=== PATIENT | male | born 1965 | race Caucasian/White ===

== ENCOUNTER 2017-04-21 21:18 | Emergency (ER) | payer OTHER ==
[2017-04-21] MEDS ORDERED: CEPHALEXIN 500 MG CAP PO STA (21:50)
[2017-04-21] MEDS ORDERED: LORazepam 1 MG TAB PO STA (21:51)
--- NOTE | 2017-04-21 22:52 | ED ---
General Adult HPI - General Source: patient Mode of arrival: wheelchair Limitations: no limitations <Jose South - Last Filed: 04/22/17 00:56> <Wilton Pop - Last Filed: 04/22/17 03:33> <Elyssa Bonilla - Last Filed: 04/22/17 05:01> - General Chief complaint: Alcohol Stated complaint: Poss Spider Bite Time Seen by Provider: 04/21/17 21:38 - History of Present Illness Initial comments: Patient presents on foot to the emergency department for the chief complaint possible spider bite on his right medial ankle. Patient states he does not know how long it has been there. States that he got it [place] On initial presentation, patient is obviously intoxicated. He states that he drinks every day. He does not know how much he drank today. Patient has no other complaints at this time. (Jose South) - Related Data Previous Rx's Medication Instructions Recorded Cephalexin [Keflex] 500 mg PO Q8HR #21 cap 04/22/17 Allergies Allergy/AdvReac Type Severity Reaction Status Date / Time No Known Allergies Allergy Verified 05/10/16 16:56 Review of Systems ROS Other: All systems not noted in ROS Statement are negative. Constitutional: Denies: fever, chills Eyes: Denies: vision change ENT: Denies: ear pain, throat pain Respiratory: Denies: dyspnea Cardiovascular: Denies: chest pain Endocrine: Denies: fatigue Gastrointestinal: Denies: abdominal pain, nausea, vomiting Genitourinary: Denies: dysuria Musculoskeletal: Denies: back pain Skin: Reports: lesions Neurological: Denies: headache <Jose South - Last Filed: 04/22/17 00:56> ROS Other: All systems not noted in ROS Statement are negative. <Wilton Pop - Last Filed: 04/22/17 03:33> ROS Other: All systems not noted in ROS Statement are negative. <Elyssa Bonilla - Last Filed: 04/22/17 05:01> ROS Statement: Those systems with pertinent positive or pertinent negative responses have been documented in the HPI. Past Medical History Past Medical History: No Reported History Additional Past Medical History / Comment(s): etoh History of Any Multi-Drug Resistant Organisms: None Reported Past Surgical History: Hernia Repair Past Psychological History: No Psychological Hx Reported Smoking Status: Current every day smoker Past Alcohol Use History: Abuse, Daily, Heavy Past Drug Use History: None Reported <Jose South - Last Filed: 04/22/17 00:56> General Exam Limitations: no limitations General appearance: alert, in no apparent distress, appears intoxicated Head exam: Present: atraumatic, normocephalic Eye exam: Present: normal appearance, PERRL ENT exam: Present: normal exam Neck exam: Present: normal inspection Respiratory exam: Present: normal lung sounds bilaterally Cardiovascular Exam: Present: regular rate, normal rhythm, normal heart sounds GI/Abdominal exam: Present: soft. Absent: distended, tenderness Rectal exam: Present: deferred Extremities exam: Present: normal inspection Back exam: Present: normal inspection Neurological exam: Present: alert, CN II-XII intact, normal gait Psychiatric exam: Present: normal affect, normal mood Skin exam: Present: warm, dry, intact, vesicles (Patient has 3 small vesicles on his right medial ankle. There is minimal surrounding erythema. Lesions are not painful to touch. There is no drainage noted. Lesions appear to be isolated infections. ) <Jose South - Last Filed: 04/22/17 00:56> Course <Jose South - Last Filed: 04/22/17 00:56> <Wilton Pop - Last Filed: 04/22/17 03:33> <Elyssa Bonilla - Last Filed: 04/22/17 05:01> Vital Signs 04/21/17 04/22/17 04/22/17 21:30 01:27 04:00 Temperature 97.5 F L Pulse Rate 103 H 68 Respiratory 18 16 16 Rate Blood Pressure 149/95 157/77 O2 Sat by Pulse 96 97 Oximetry - Reevaluation(s) Reevaluation #1: 04/22/17 03:33 Case discussed and signed out to (Wilton Pop) Medical Decision Making <Jose South - Last Filed: 04/22/17 00:56> <Wilton Pop - Last Filed: 04/22/17 03:33> <Elyssa Bonilla - Last Filed: 04/22/17 05:01> - Medical Decision Making Patient presents with a chief complaint of a possible spider bite/lesions on his right ankle. Examination shows possible insect bite versus contact dermatitis. There is not significant surrounding erythema. They're not tender to touch. There is no drainage noted. Patient was given a dose of Keflex in the emergency department. On arrival, patient is visibly intoxicated. He admits to drinking every day. Patient is slurring his words, however he has no focal neurological deficits. Patient will be kept in the emergency department until he is clinically sober. When patient is sober, he'll be discharged with prescription for Keflex and primary care follow-up. 12:57 AM Patient currently sleeping. He'll be reassessed for sobriety when he wakes up. This case will be signed out to Wilton Pop. (Jose South) Disposition <Jose South - Last Filed: 04/22/17 00:56> <Wilton Pop - Last Filed: 04/22/17 03:33> <Elyssa Bonilla - Last Filed: 04/22/17 05:01> Clinical Impression: Spider bite Disposition: HOME SELF-CARE Condition: Good Instructions: Insect Bite or Sting (ED) Additional Instructions: He does not have any family doctor he was advised to come back to the ER for follow-up if it gets worse Prescriptions: Cephalexin [Keflex] 500 mg PO Q8HR #21 cap Referrals: None,Stated [Primary Care Provider] - 1-2 days
[2017-04-22 01:28] VITALS: RESP 16
[2017-04-22 05:06] VITALS: BP 147/72; PULSE 76; TEMP 97.3
== END 2017-04-22 05:06 | disposition home or self-care (01) ==
LOC: EC 21:18
DX: S90.561A Insect bite (nonvenomous), right ankle, initial encounter (principal); F10.129 Alcohol abuse with intoxication, unspecified; W57.XXXA Bitten or stung by nonvenomous insect and other nonvenomous arthropods, initial encounter; F17.200 Nicotine dependence, unspecified, uncomplicated
CPT/HCPCS: 99283

== ENCOUNTER 2017-10-16 22:17 | Emergency (ER) | payer SELFPAY ==
[2017-10-16] MEDS ORDERED: LORazepam 2 MG/ML INJ IM STA ×2 (22:45→23:24)
[2017-10-16 22:49] VITALS: TEMP 98
--- NOTE | 2017-10-16 22:58 | ED ---
Alcohol HPI - General Source: EMS Mode of arrival: EMS Limitations: no limitations - History of Present Illness MD Complaint: alcohol intoxication Last Drink: unknown Previous Visits for Alcohol Intoxication?: Yes Recent Trauma: No Associated Symptoms: denies other symptoms Chronic Alcohol Use: Yes <Dawood Price - Last Filed: 10/17/17 07:03> <Emory Andrew - Last Filed: 10/17/17 08:11> - General Chief Complaint: Alcohol Stated Complaint: ETOH Time Seen by Provider: 10/16/17 22:19 - History of Present Illness Initial Comments: This patient is a 51-year-old man brought by ambulance after they were called about a man found outside who was too intoxicated to walk. Patient reportedly was [place]. The patient does admit to drinking "a lot." He denies any injury when he fell. He denies loss consciousness. He denies head or neck pain, chest, back, or abdominal pain. (Dawood Price) - Related Data Home Medications Medication Instructions Recorded Confirmed No Known Home Medications [No 10/16/17 10/16/17 Known Home Medications] Allergies Allergy/AdvReac Type Severity Reaction Status Date / Time No Known Allergies Allergy Verified 10/16/17 22:49 Review of Systems ROS Other: All systems not noted in ROS Statement are negative. Cardiovascular: Denies: chest pain Gastrointestinal: Denies: abdominal pain, vomiting Musculoskeletal: Denies: back pain Neurological: Denies: headache <Dawood Price - Last Filed: 10/17/17 07:03> ROS Other: All systems not noted in ROS Statement are negative. <Emory Andrew - Last Filed: 10/17/17 08:11> ROS Statement: Those systems with pertinent positive or pertinent negative responses have been documented in the HPI. Past Medical History Past Medical History: No Reported History Additional Past Medical History / Comment(s): etoh History of Any Multi-Drug Resistant Organisms: None Reported Past Surgical History: Hernia Repair Past Psychological History: No Psychological Hx Reported Smoking Status: Current every day smoker Past Alcohol Use History: Abuse, Daily, Heavy Past Drug Use History: None Reported <Dawood Price - Last Filed: 10/17/17 07:03> General Exam Limitations: no limitations General appearance: alert, appears intoxicated Head exam: Present: atraumatic, normocephalic, normal inspection Eye exam: Present: normal appearance, PERRL, EOMI, nystagmus. Absent: scleral icterus, conjunctival injection ENT exam: Present: mucous membranes dry Neck exam: Present: normal inspection, full ROM. Absent: tenderness, meningismus Respiratory exam: Present: normal lung sounds bilaterally. Absent: respiratory distress, wheezes, rales, rhonchi, stridor, chest wall tenderness Cardiovascular Exam: Present: regular rate, normal rhythm, normal heart sounds. Absent: systolic murmur, diastolic murmur, rubs, gallop GI/Abdominal exam: Present: soft. Absent: distended, tenderness, guarding, rebound Extremities exam: Present: normal inspection, full ROM Back exam: Absent: vertebral tenderness Neurological exam: Present: alert Psychiatric exam: Present: agitated Skin exam: Present: warm, dry, intact, normal color. Absent: rash <Dawood Price - Last Filed: 10/17/17 07:03> General appearance: alert, in no apparent distress Head exam: Present: atraumatic, normocephalic, normal inspection Eye exam: Present: normal appearance, PERRL, EOMI. Absent: scleral icterus, conjunctival injection, periorbital swelling ENT exam: Present: normal exam, mucous membranes moist Neck exam: Present: normal inspection. Absent: tenderness, meningismus, lymphadenopathy Respiratory exam: Present: normal lung sounds bilaterally. Absent: respiratory distress, wheezes, rales, rhonchi, stridor Cardiovascular Exam: Present: regular rate, normal rhythm, normal heart sounds. Absent: systolic murmur, diastolic murmur, rubs, gallop, clicks GI/Abdominal exam: Present: soft, normal bowel sounds. Absent: distended, tenderness, guarding, rebound, rigid Extremities exam: Present: normal inspection, full ROM, normal capillary refill. Absent: tenderness, pedal edema, joint swelling, calf tenderness Back exam: Present: normal inspection Neurological exam: Present: alert, oriented X3, CN II-XII intact Psychiatric exam: Present: normal affect, normal mood Skin exam: Present: warm, dry, intact, normal color. Absent: rash <Emory Andrew - Last Filed: 10/17/17 08:11> Course <Dawood Price - Last Filed: 10/17/17 07:03> <Emoyr Andrew - Last Filed: 10/17/17 08:11> Vital Signs 10/16/17 10/17/17 22:44 05:13 Temperature 98.0 F Pulse Rate 97 94 Respiratory 22 16 Rate Blood Pressure 198/112 143/87 O2 Sat by Pulse 98 99 Oximetry - Reevaluation(s) Reevaluation #1: 10/17/17 08:11 At this point patient is awake and alert, able to actively without difficulty ( Emory Andrew) Procedures - Restraint - Face to Face Restraint Occurrence 1 Patient's Immediate Situation: Endangers self safety, Endangers staff safety, Violent behavior Patient's Reaction to the Intervention: Angry, Belligerent, Combative Patient's Medical & Behavioral Condition: Agitated Need to Continue or Terminate Restraint or Seclusion: Continue Face to Face Eval of Restraint Date: 10/16/17 Face to Face Eval of Restraint Time: 22:30 <Dawood Price - Last Filed: 10/17/17 07:03> Medical Decision Making <Dawood Price - Last Filed: 10/17/17 07:03> <Emory Andrew - Last Filed: 10/17/17 08:11> - Medical Decision Making 51 male the ER for evaluation, alcohol intoxication, patient currently sober, without difficulty. Patient can be discharged (Emory Andrew) Disposition <Dawood Price - Last Filed: 10/17/17 07:03> <Emory Andrew - Last Filed: 10/17/17 08:11> Clinical Impression: Alcoholic intoxication Disposition: HOME SELF-CARE Condition: Good Instructions: Alcohol Intoxication (ED) Referrals: None,Stated [Primary Care Provider] - 1-2 days
[2017-10-17 05:15] VITALS: RESP 16
[2017-10-17 08:12] VITALS: PULSE 70
[2017-10-17 11:28] VITALS: BP 145/83
== END 2017-10-17 11:26 | disposition home or self-care (01) ==
LOC: EC 22:17
DX: F10.129 Alcohol abuse with intoxication, unspecified (principal); R45.1 Restlessness and agitation; H55.09 Other forms of nystagmus; F17.200 Nicotine dependence, unspecified, uncomplicated
CPT/HCPCS: 99284; 96372 ×2; J2060

== ENCOUNTER 2017-10-19 22:28 | Emergency (ER) | payer OTHER ==
[2017-10-19 22:46] VITALS: RESP 18
--- NOTE | 2017-10-19 23:23 | XR ---
EXAMINATION TYPE: XR chest 2V DATE OF EXAM: 10/19/2017 COMPARISON: NONE HISTORY: Chest pain TECHNIQUE: Frontal and lateral views of the chest are obtained. FINDINGS: Heart and mediastinum are normal. Lungs are clear of consolidation. There is slight coarse jeaneth of interstitial markings. There is no pleural effusion. Bony thorax is intact. IMPRESSION: Slight increase lung markings could relate to mild fibrosis. Normal heart. There is no h eart failure.
[2017-10-19 23:37] LABS: Basophils # (A) 0.1 k/uL (0-0.2); Basophils % (A) 1 %; Eosinophils # (A) 0.7 k/uL (0-0.7); Eosinophils % (A) 6 %; HCT 52.6 % (39.0-53.0); HGB 17.1 gm/dL (13.0-17.5); Lymphocytes # (A) 2.2 k/uL (1.0-4.8); Lymphocytes % (A) 20 %; MCH 31.8 pg (25.0-35.0); MCHC 32.4 g/dL (31.0-37.0); MCV 98.1 fL (80.0-100.0); Mean Platelet Volume 7.1; Monocytes # (A) 0.6 k/uL (0-1.0); Monocytes % (A) 6 %; Neutrophils # (A) 7.1 k/uL (1.3-7.7); Neutrophils % (A) 66 %; Platelet Count 245 k/uL (150-450); RBC 5.36 m/uL (4.30-5.90); RDW 13.4 % (11.5-15.5); WBC 10.8 k/uL (3.8-10.6)
[2017-10-19 23:47] LABS: Anion Gap 16 mmol/L; Blood Urea Nitrogen 8 mg/dL (9-20); Calcium 9.7 mg/dL (8.4-10.2); Carbon Dioxide 22 mmol/L (22-30); Chloride 103 mmol/L (98-107); Glucose 151 mg/dL (74-99); Potassium 4.6 mmol/L (3.5-5.1); Sodium 141 mmol/L (137-145)
--- NOTE | 2017-10-20 00:06 | ED ---
Anxiety HPI - General Chief Complaint: Anxiety Stated Complaint: Anxiety Time Seen by Provider: 10/19/17 22:53 Source: patient Mode of arrival: ambulatory - History of Present Illness Initial Comments: Patient is a 51-year-old man who presents because she is anxious about his situation. He is currently homeless. Patient does admit drinking tonight. He denies any homicidal or suicidal ideation or any hallucinations. MD Complaint: anxiety -: days(s) Place: outdoors Previous History of Same: Yes Severity: moderate Quality: intermittent Improves With: nothing Worsens With: thinking about event - Related Data Home Medications: Home Medications Medication Instructions Recorded Confirmed No Known Home Medications [No 10/16/17 10/19/17 Known Home Medications] Allergies/Adverse Reactions: Allergies Allergy/AdvReac Type Severity Reaction Status Date / Time No Known Allergies Allergy Verified 10/19/17 23:05 Review of Systems ROS Statement: Those systems with pertinent positive or pertinent negative responses have been documented in the HPI. ROS Other: All systems not noted in ROS Statement are negative. Constitutional: Denies: fever, weakness Eyes: Denies: vision change Respiratory: Denies: cough, dyspnea Cardiovascular: Denies: chest pain, palpitations, syncope Gastrointestinal: Denies: abdominal pain, vomiting, diarrhea Musculoskeletal: Denies: back pain Skin: Denies: rash Neurological: Denies: headache Psychiatric: Reports: anxiety. Denies: auditory hallucinations, visual hallucinations, homicidal thoughts, suicidal thoughts Past Medical History Past Medical History: No Reported History Additional Past Medical History / Comment(s): etoh History of Any Multi-Drug Resistant Organisms: None Reported Past Surgical History: Hernia Repair Past Psychological History: No Psychological Hx Reported Smoking Status: Current every day smoker Past Alcohol Use History: Abuse, Daily, Heavy Past Drug Use History: None Reported General Exam Limitations: no limitations General appearance: alert, appears intoxicated Head exam: Present: atraumatic, normocephalic Eye exam: Present: normal appearance. Absent: scleral icterus, conjunctival injection Respiratory exam: Present: normal lung sounds bilaterally. Absent: respiratory distress, wheezes, rales, rhonchi, stridor Cardiovascular Exam: Present: regular rate, normal rhythm, normal heart sounds GI/Abdominal exam: Present: soft. Absent: distended, tenderness, guarding, rebound Extremities exam: Present: normal inspection, normal capillary refill. Absent: pedal edema, calf tenderness Psychiatric exam: Present: normal affect. Absent: depressed, agitated, manic, homicidal ideation, suicidal ideation Skin exam: Present: warm, dry, intact, normal color. Absent: rash Course Vital Signs 10/19/17 10/20/17 22:44 00:20 Temperature 97.8 F 97.3 F L Pulse Rate 78 73 Respiratory 18 18 Rate Blood Pressure 170/100 160/88 O2 Sat by Pulse 97 98 Oximetry Medical Decision Making - Lab Data Result diagrams: 10/19/17 23:28 10/19/17 23:28 Lab Results 10/19/17 10/19/17 Range/Units 23:28 23:28 WBC 10.8 H (3.8-10.6) k/uL RBC 5.36 (4.30-5.90) m/uL Hgb 17.1 (13.0-17.5) gm/dL Hct 52.6 (39.0-53.0) % MCV 98.1 (80.0-100.0) fL MCH 31.8 (25.0-35.0) pg MCHC 32.4 (31.0-37.0) g/dL RDW 13.4 (11.5-15.5) % Plt Count 245 (150-450) k/uL Neutrophils % 66 % Lymphocytes % 20 % Monocytes % 6 % Eosinophils % 6 % Basophils % 1 % Neutrophils # 7.1 (1.3-7.7) k/uL Lymphocytes # 2.2 (1.0-4.8) k/uL Monocytes # 0.6 (0-1.0) k/uL Eosinophils # 0.7 (0-0.7) k/uL Basophils # 0.1 (0-0.2) k/uL Sodium 141 (137-145) mmol/L Potassium 4.6 (3.5-5.1) mmol/L Chloride 103 (98-107) mmol/L Carbon Dioxide 22 (22-30) mmol/L Anion Gap 16 mmol/L BUN 8 L (9-20) mg/dL Creatinine 0.60 L (0.66-1.25) mg/dL Est GFR (MDRD) Af Amer >60 (>60 ml/min/1.73 sqM) Est GFR (MDRD) Non-Af >60 (>60 ml/min/1.73 sqM) Glucose 151 H (74-99) mg/dL Calcium 9.7 (8.4-10.2) mg/dL Disposition Clinical Impression: Alcoholic intoxication Disposition: HOME SELF-CARE Condition: Fair Instructions: Alcohol Intoxication (ED) Referrals: None,Stated [Primary Care Provider] - 1-2 days
[2017-10-20 00:21] VITALS: BP 160/88; PULSE 73; TEMP 97.3
--- NOTE | 2017-10-22 03:07 | CDI ---
Documentation Clarification OP Dear Dawood BYNUM MD Please do addendum to ED report for HPI , Physical exam and MDM. Thank you, Desire [place] [employer] If you have any question, Please contact optical laboratory manager at [phone] [facility]
== END 2017-10-20 00:21 | disposition home or self-care (01) ==
LOC: EC 22:28
DX: F10.129 Alcohol abuse with intoxication, unspecified (principal); F41.9 Anxiety disorder, unspecified; F17.200 Nicotine dependence, unspecified, uncomplicated
CPT/HCPCS: 36415; 71046; 80048; 85025; 99283

== ENCOUNTER 2020-01-02 11:22 | Emergency (ER) | payer OTHER ==
[2020-01-02 11:25] VITALS: RESP 16; TEMP 98.1
--- NOTE | 2020-01-02 11:30 | ED ---
General Adult HPI - General Chief complaint: Abdominal Pain Stated complaint: Cough Time Seen by Provider: 01/02/20 11:27 Source: patient, RN notes reviewed Mode of arrival: ambulatory Limitations: no limitations - History of Present Illness Initial comments: 54-year-old male with a past medical history: He is presents to the emergency Department today for a chief complaint of nausea. Patient states he has had nausea for a little over a week now. He has not had any significant vomiting. He has not had any abdominal pain. He is passing gas without difficulty. States bowel movements have been less frequent. Patient also complaining of a cough for the past few days. He does not have any fevers. Concerned he could have coronavirus.Patient has no other complaints at this time including shortness of breath, chest pain, abdominal pain, nausea or vomiting, headache, or visual changes. - Related Data Previous Rx's Medication Instructions Recorded Azithromycin [Zithromax Z-pack] 250 mg PO DIRECTED #6 tab 01/02/20 Allergies Allergy/AdvReac Type Severity Reaction Status Date / Time No Known Allergies Allergy Verified 01/02/20 11:24 Review of Systems ROS Statement: Those systems with pertinent positive or pertinent negative responses have been documented in the HPI. ROS Other: All systems not noted in ROS Statement are negative. Past Medical History Past Medical History: No Reported History Additional Past Medical History / Comment(s): etoh History of Any Multi-Drug Resistant Organisms: None Reported Past Surgical History: Hernia Repair Past Psychological History: No Psychological Hx Reported Smoking Status: Current every day smoker Past Alcohol Use History: Abuse, Daily, Heavy Past Drug Use History: None Reported General Exam Limitations: no limitations General appearance: alert, in no apparent distress Head exam: Present: atraumatic, normocephalic, normal inspection Eye exam: Present: normal appearance, PERRL, EOMI. Absent: scleral icterus, conjunctival injection, periorbital swelling ENT exam: Present: normal exam, mucous membranes moist Neck exam: Present: normal inspection, full ROM. Absent: tenderness, meningismus, lymphadenopathy Respiratory exam: Present: normal lung sounds bilaterally. Absent: respiratory distress, wheezes, rales, rhonchi, stridor Cardiovascular Exam: Present: regular rate, normal rhythm, normal heart sounds. Absent: systolic murmur, diastolic murmur, rubs, gallop, clicks GI/Abdominal exam: Present: soft, normal bowel sounds. Absent: distended, tenderness, guarding, rebound, rigid Neurological exam: Present: alert Course Vital Signs 01/02/20 01/02/20 11:23 13:21 Temperature 98.1 F Pulse Rate 20 L 93 Respiratory 16 16 Rate Blood Pressure 169/89 164/102 O2 Sat by Pulse 99 96 Oximetry EKG Findings - EKG Comments: EKG Findings:: Sinus tachycardia, ventricular rate 104, NJ interval 124, QTc 460 Medical Decision Making - Medical Decision Making Patient presents to the emergency department stable condition. Initial pulse rate was entered as 20 which was not accurate. Repeat shows 93. Bowel sounds are normal. Abdomen nontender. Lung sounds clear. No respiratory distress. 99% on room air. CBC CMP is unremarkable. Urinalysis does show 12 white blood cells, this will be cultured. He does not have any urinary symptoms. Carotid arteries is negative however chest x-ray did show a new diffuse interstitial prominence that could relate to fluid overload or atypical pneumonia. BNP was added which is only 22. Given coffee likely has atypical pneumonia. I also discussed the possibility of a false-negative coronavirus study and that he needs to monitor himself carefully and return for any shortness of breath or worsening symptoms. He was started on azithromycin for this. X-ray KUB was also performed which showed rectal fecal stasis with a rectal fecal ball dilating the rectum up to 7.2 cm. The proximal bowel is nondilated. There is no proximal obstruction suspected. Patient was given glycerin suppository to use at home as well as magnesium citrate. Discussed increasing fiber diet. Discussed returning here for any worsening symptoms. - Lab Data Result diagrams: 01/02/20 11:46 01/02/20 11:46 Lab Results 01/02/20 01/02/20 01/02/20 Range/Units 11:46 11:46 11:46 WBC 12.3 H (3.8-10.6) k/uL RBC 5.50 (4.30-5.90) m/uL Hgb 17.4 (13.0-17.5) gm/dL Hct 53.9 H (39.0-53.0) % MCV 97.9 (80.0-100.0) fL MCH 31.6 (25.0-35.0) pg MCHC 32.3 (31.0-37.0) g/dL RDW 13.3 (11.5-15.5) % Plt Count 216 (150-450) k/uL Neutrophils % 86 % Lymphocytes % 5 % Monocytes % 5 % Eosinophils % 1 % Basophils % 1 % Neutrophils # 10.6 H (1.3-7.7) k/uL Lymphocytes # 0.6 L (1.0-4.8) k/uL Monocytes # 0.6 (0-1.0) k/uL Eosinophils # 0.1 (0-0.7) k/uL Basophils # 0.1 (0-0.2) k/uL Sodium 136 L (137-145) mmol/L Potassium 4.4 (3.5-5.1) mmol/L Chloride 103 (98-107) mmol/L Carbon Dioxide 25 (22-30) mmol/L Anion Gap 8 mmol/L BUN 7 L (9-20) mg/dL Creatinine 0.61 L (0.66-1.25) mg/dL Est GFR (CKD-EPI)AfAm >90 (>60 ml/min/1.73 sqM) Est GFR (CKD-EPI)NonAf >90 (>60 ml/min/1.73 sqM) Glucose 135 H (74-99) mg/dL Calcium 9.7 (8.4-10.2) mg/dL Total Bilirubin 0.8 (0.2-1.3) mg/dL AST 38 (17-59) U/L ALT 29 (4-49) U/L Alkaline Phosphatase 154 H (38-126) U/L NT-Pro-B Natriuret Pep pg/mL Total Protein 7.6 (6.3-8.2) g/dL Albumin 4.3 (3.5-5.0) g/dL Amylase 53 (30-110) U/L Lipase 80 (23-300) U/L Urine Color Yellow Urine Appearance Clear (Clear) Urine pH 5.5 (5.0-8.0) Ur Specific [place] 1.023 (1.001-1.035) Urine Protein 1+ H (Negative) Urine Glucose (UA) 1+ H (Negative) Urine Ketones Trace H (Negative) Urine Blood Negative (Negative) Urine Nitrite Negative (Negative) Urine Bilirubin Negative (Negative) Urine Urobilinogen 2.0 (<2.0) mg/dL Ur Leukocyte Esterase Small H (Negative) Urine WBC 12 H (0-5) /hpf Urine Bacteria Occasional H (None) /hpf Urine Mucus Many H (None) /hpf Coronavirus (PCR) (Not Detectd) 01/02/20 01/02/20 Range/Units 11:46 11:46 WBC (3.8-10.6) k/uL RBC (4.30-5.90) m/uL Hgb (13.0-17.5) gm/dL Hct (39.0-53.0) % MCV (80.0-100.0) fL MCH (25.0-35.0) pg MCHC (31.0-37.0) g/dL RDW (11.5-15.5) % Plt Count (150-450) k/uL Neutrophils % % Lymphocytes % % Monocytes % % Eosinophils % % Basophils % % Neutrophils # (1.3-7.7) k/uL Lymphocytes # (1.0-4.8) k/uL Monocytes # (0-1.0) k/uL Eosinophils # (0-0.7) k/uL Basophils # (0-0.2) k/uL Sodium (137-145) mmol/L Potassium (3.5-5.1) mmol/L Chloride (98-107) mmol/L Carbon Dioxide (22-30) mmol/L Anion Gap mmol/L BUN (9-20) mg/dL Creatinine (0.66-1.25) mg/dL Est GFR (CKD-EPI)AfAm (>60 ml/min/1.73 sqM) Est GFR (CKD-EPI)NonAf (>60 ml/min/1.73 sqM) Glucose (74-99) mg/dL Calcium (8.4-10.2) mg/dL Total Bilirubin (0.2-1.3) mg/dL AST (17-59) U/L ALT (4-49) U/L Alkaline Phosphatase (38-126) U/L NT-Pro-B Natriuret Pep 22 pg/mL Total Protein (6.3-8.2) g/dL Albumin (3.5-5.0) g/dL Amylase (30-110) U/L Lipase (23-300) U/L Urine Color Urine Appearance (Clear) Urine pH (5.0-8.0) Ur Specific [place] (1.001-1.035) Urine Protein (Negative) Urine Glucose (UA) (Negative) Urine Ketones (Negative) Urine Blood (Negative) Urine Nitrite (Negative) Urine Bilirubin (Negative) Urine Urobilinogen (<2.0) mg/dL Ur Leukocyte Esterase (Negative) Urine WBC (0-5) /hpf Urine Bacteria (None) /hpf Urine Mucus (None) /hpf Coronavirus (PCR) Not Detected (Not Detectd) Disposition Clinical Impression: Constipation, Atypical pneumonia Disposition: HOME SELF-CARE Condition: Fair Instructions (If sedation given, give patient instructions): Pneumonia (ED), High Fiber Diet (ED) Additional Instructions: Please take antibiotic as directed. Increase fiber diet. Use suppository and take magnesium citrate at home. Follow-up with primary care in 1-2 days. If you have any worsening symptoms such as shortness of breath return to the emergency department for further evaluation. Prescriptions: Azithromycin [Zithromax Z-pack] 250 mg PO DIRECTED #6 tab Is patient prescribed a controlled substance at d/c from ED?: No Referrals: Guevara Sargent MD [REFERRING] - 1-2 days Time of Disposition: 13:46
[2020-01-02] MEDS ORDERED: ONDANSETRON 4 MG/2 ML VIAL IVP STA (11:43)
[2020-01-02] MEDS ORDERED: SODIUM CHLORIDE 0.9% 1,000 ML IV STA (11:43)
[2020-01-02 12:09] LABS: Basophils # (A) 0.1 k/uL (0-0.2); Basophils % (A) 1 %; Eosinophils # (A) 0.1 k/uL (0-0.7); Eosinophils % (A) 1 %; HCT 53.9 % (39.0-53.0); HGB 17.4 gm/dL (13.0-17.5); Lymphocytes # (A) 0.6 k/uL (1.0-4.8); Lymphocytes % (A) 5 %; MCH 31.6 pg (25.0-35.0); MCHC 32.3 g/dL (31.0-37.0); MCV 97.9 fL (80.0-100.0); Mean Platelet Volume 7.3; Monocytes # (A) 0.6 k/uL (0-1.0); Monocytes % (A) 5 %; Neutrophils # (A) 10.6 k/uL (1.3-7.7); Neutrophils % (A) 86 %; Platelet Count 216 k/uL (150-450); RDW 13.3 % (11.5-15.5); WBC 12.3 k/uL (3.8-10.6)
[2020-01-02 12:20] LABS: Appearance,Urine Clear (Clear); Bacteria,Urine Occasional /hpf; Bilirubin,Urine Negative (Negative); Blood,Urine Negative (Negative); Color,Urine Yellow; Glucose,Urine (UA) 1+ (Negative); Ketones,Urine Trace (Negative); Leukocyte Esterase,Urine Small (Negative); Mucus,Urine Many /hpf; Nitrite,Urine Negative (Negative); PH, Urine 5.5 (5.0-8.0); Protein,Urine 1+ (Negative); Specific Gravity,Urine 1.023 (1.001-1.035); WBC,Urine 12 /hpf (0-5)
--- NOTE | 2020-01-02 12:25 | XR ---
EXAMINATION TYPE: XR chest 1V portable DATE OF EXAM: 01/02/2020 COMPARISON: 10/19/2017 HISTORY: Abdominal pain, cough, and vomiting TECHNIQUE: Single frontal view of the chest is obtained. FINDINGS: Diffuse interstitial prominence new from the prior. No focal consolidation, pleural effusi on or pneumothorax. Upper limits of normal size Cardia mediastinal silhouette. IMPRESSION: New diffuse interstitial prominence. Consider fluid overload or atypical pneumonia.
[2020-01-02 12:28] LABS: ALT 29 U/L (4-49); AST 38 U/L (17-59); African American GFR (CKD) >90 (>60 ml/min/1.73 sqM); Albumin 4.3 g/dL (3.5-5.0); Alkaline Phosphatase 154 U/L (38-126); Amylase 53 U/L (30-110); Anion Gap 8 mmol/L; Blood Urea Nitrogen 7 mg/dL (9-20); Calcium 9.7 mg/dL (8.4-10.2); Carbon Dioxide 25 mmol/L (22-30); Chloride 103 mmol/L (98-107); Glucose 135 mg/dL (74-99); Non-African American GFR(CKD) >90 (>60 ml/min/1.73 sqM); Potassium 4.4 mmol/L (3.5-5.1); Sodium 136 mmol/L (137-145); Total Bilirubin 0.8 mg/dL (0.2-1.3); Total Protein 7.6 g/dL (6.3-8.2)
--- NOTE | 2020-01-02 12:29 | XR ---
EXAMINATION TYPE: XR KUB DATE OF EXAM: 01/02/2020 12:15 PM CLINICAL HISTORY: Abdominal pain with cough and nausea and vomiting for 2 days TECHNIQUE: Single supine KUB image of the abdomen is obtained. COMPARISON: None. FINDINGS: Dilated rectum with rectal fecal ball measuring up to 7.2 cm. No proximal dilated large or small bowel. Supine imaging limits evaluation for pneumoperitoneum. Lung bases are well aerated. No a cute osseous pathology seen. Phleboliths within the left hemipelvis. IMPRESSION: Rectal fecal stasis with a rectal fecal ball dilating the rectum up to 7.2 cm. Proximal b owel is nondilated and no proximal obstruction suspected.
[2020-01-02] MEDS ORDERED: MAGNESIUM CITRATE 296 ML BOTTLE PO ONE (13:41)
[2020-01-02] MEDS ORDERED: GLYCERIN ADULT SUPPOSITORY 1 EACH RECTAL STA (13:41)
[2020-01-02] MEDS ORDERED: AZITHROMYCIN 500 MG TAB PO STA (13:41)
[2020-01-02 14:32] VITALS: BP 160/99; PULSE 101
== END 2020-01-02 14:35 | disposition home or self-care (01) ==
LOC: EC 11:22
DX: K59.00 Constipation, unspecified (principal); J18.9 Pneumonia, unspecified organism; K59.8 Other specified functional intestinal disorders; F17.200 Nicotine dependence, unspecified, uncomplicated; Z20.828 Contact with and (suspected) exposure to other viral communicable diseases
CPT/HCPCS: 36415; 93005; 83880; 80053; 82150; 83690; 85025; 81001; 87086; 87635; 71045; 74018; 99284; 96374; 96361; J2405

== ENCOUNTER 2020-02-06 18:04 | Emergency (ER) | payer OTHER ==
--- NOTE | 2020-02-06 19:04 | ED ---
Recheck HPI - General Chief Complaint: Recheck/Abnormal Lab/Rx Stated Complaint: ETOH Time Seen by Provider: 02/06/20 18:06 Source: police, EMS Mode of arrival: EMS - History of Present Illness Initial Comments: 54-year-old male patient presents to the emergency department today for alcohol intoxication. He was brought in by ambulance and police when he was found walking through town obviously intoxicated. Patient denies any current symptoms or concerns. States he feels fine. He is unsure why he was brought in. He is alert and oriented. Denies injuries. Patient denies any recent rash, fever, chills, cough, shortness of breath, chest pain, abdominal pain, nausea, vomiting, diarrhea, constipation, back pain, numbness, tingling, dizziness, weakness, hematuria, dysuria, urinary urgency, urinary frequency, headache, visual changes, or any other complaints. - Related Data Previous Rx's Medication Instructions Recorded Azithromycin [Zithromax Z-pack] 250 mg PO DIRECTED #6 tab 01/02/20 Allergies Allergy/AdvReac Type Severity Reaction Status Date / Time No Known Allergies Allergy Verified 01/10/20 14:13 Review of Systems ROS Statement: Those systems with pertinent positive or pertinent negative responses have been documented in the HPI. ROS Other: All systems not noted in ROS Statement are negative. Past Medical History Past Medical History: No Reported History Additional Past Medical History / Comment(s): etoh History of Any Multi-Drug Resistant Organisms: None Reported Past Surgical History: Hernia Repair Past Psychological History: No Psychological Hx Reported Smoking Status: Current every day smoker Past Alcohol Use History: Abuse, Daily, Heavy Past Drug Use History: None Reported General Exam General appearance: alert, in no apparent distress, appears intoxicated, other (This is a well-developed, well-nourished adult male patient in no acute distress. Vital signs upon presentation are temperature 98.7F, pulse 104, respirations 19, blood pressure 141/94, pulse ox 94% on room air) Eye exam: Present: normal appearance, PERRL, EOMI. Absent: scleral icterus, conjunctival injection, periorbital swelling Respiratory exam: Present: normal lung sounds bilaterally. Absent: respiratory distress, wheezes, rales, rhonchi, stridor Cardiovascular Exam: Present: regular rate, normal rhythm, normal heart sounds. Absent: systolic murmur, diastolic murmur, rubs, gallop, clicks GI/Abdominal exam: Present: soft, normal bowel sounds. Absent: distended, tenderness, guarding, rebound, rigid Neurological exam: Present: alert, oriented X3, CN II-XII intact Psychiatric exam: Present: normal affect, normal mood Skin exam: Present: warm, dry, intact, normal color. Absent: rash Course Vital Signs 02/06/20 18:19 Temperature 98.7 F Pulse Rate 104 H Respiratory 19 Rate Blood Pressure 141/94 O2 Sat by Pulse 94 L Oximetry Medical Decision Making - Medical Decision Making 54-year-old male patient presents to the emergency department today brought in by police and EMS for alcohol intoxication. Physical examination is unremarkable. He is alert and oriented. Denies any physical symptoms or concerns. I did call and speak to family at his home, they will be present and willing to take responsibility for the patient upon his arrival there. We will send him in a taxi home. He is instructed to follow-up with his primary care physician for recheck in 1-2 days. Return parameters were discussed in detail. He verbalizes understanding and agrees this plan. Disposition Clinical Impression: Alcohol intoxication Disposition: HOME SELF-CARE Condition: Good Instructions (If sedation given, give patient instructions): Alcohol Intoxication (ED) Additional Instructions: Follow-up through primary care physician for recheck in 1-2 days. Consider alcohol rehabilitation. Return to the emergency department immediately for any new, worsening, or concerning symptoms. Is patient prescribed a controlled substance at d/c from ED?: No Referrals: None,Stated [Primary Care Provider] - 1-2 days Time of Disposition: 19:04
[2020-02-06 20:32] VITALS: BP 148/68; PULSE 82; RESP 20; TEMP 98.1
== END 2020-02-06 19:45 | disposition home or self-care (01) ==
LOC: EC 18:04
DX: F10.129 Alcohol abuse with intoxication, unspecified (principal); F17.200 Nicotine dependence, unspecified, uncomplicated
CPT/HCPCS: 99283

== ENCOUNTER 2020-05-07 19:59 | Inpatient (IN) | payer OTHER ==
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
--- NOTE | 2020-05-07 21:56 | XR ---
EXAMINATION TYPE: PA chest and left rib series, 5 views DATE OF EXAM: 05/07/2020 Comparison: 01/02/2020 Clinical History: 54-year-old male with fall and pain Findings: Heart borderline enlarged. The aorta within normal limits. Diffuse interstitial and vascular prominen ce. No consolidation or pleural effusion. Age indeterminate fractures of the left lateral seventh and eighth ribs, suspected chronic requiring further clinical correlation. No acute displaced fracture is identified along the left-sided ribs. Impression: 1. Cardiomegaly and chronic changes, possible bronchitis or chronic asthma. 2. Age-indeterminate fractures of the left lateral seventh and eighth ribs. Possibly chronic. Further clinical correlation is recommended.
[2020-05-07 22:10] LABS: Basophils # (A) 0.1 k/uL (0-0.2); Basophils % (A) 2 %; Eosinophils # (A) 0.1 k/uL (0-0.7); Eosinophils % (A) 2 %; HGB 18.7 gm/dL (13.0-17.5); Lymphocytes # (A) 1.1 k/uL (1.0-4.8); Lymphocytes % (A) 21 %; MCH 33.8 pg (25.0-35.0); MCHC 33.5 g/dL (31.0-37.0); MCV 100.9 fL (80.0-100.0); Mean Platelet Volume 7.5; Monocytes # (A) 0.6 k/uL (0-1.0); Monocytes % (A) 11 %; Neutrophils # (A) 3.2 k/uL (1.3-7.7); Neutrophils % (A) 60 %; Platelet Count 156 k/uL (150-450); RBC 5.55 m/uL (4.30-5.90); WBC 5.4 k/uL (3.8-10.6)
[2020-05-07 22:15] LABS: ALT 101 U/L (4-49); AST 139 U/L (17-59); African American GFR (CKD) >90 (>60 ml/min/1.73 sqM); Alkaline Phosphatase 160 U/L (38-126); Anion Gap 13 mmol/L; Blood Urea Nitrogen 4 mg/dL (9-20); Carbon Dioxide 22 mmol/L (22-30); Chloride 106 mmol/L (98-107); Glucose 95 mg/dL (74-99); Non-African American GFR(CKD) >90 (>60 ml/min/1.73 sqM); Potassium 4.1 mmol/L (3.5-5.1); Sodium 141 mmol/L (137-145); Total Bilirubin 0.6 mg/dL (0.2-1.3); Total Protein 7.1 g/dL (6.3-8.2)
[2020-05-07 22:36] LABS: Alcohol 335 mg/dL
[2020-05-07] MEDS ORDERED: KETOROLAC 15 MG/ML 1 ML VIAL IVP STA (22:54)
[2020-05-07] MEDS ORDERED: NALOXONE 0.4 MG/ML 1 ML VIAL IV PRN (22:55)
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
[2020-05-07] MEDS ORDERED: SODIUM CHLORIDE 0.9% 1,000 ML IV SCH (23:00)
[2020-05-07] MEDS ORDERED: Acetaminophen-Codeine 300-30mg TAB PO STA (23:01)
[2020-05-08] MEDS ORDERED: Acetaminophen-Codeine 300-30mg TAB PO PRN (00:35)
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
[2020-05-08] MEDS ORDERED: LORazepam 2 MG/ML INJ IV PRN ×3 (00:54)
[2020-05-08] MEDS ORDERED: KETOROLAC 15 MG/ML 1 ML VIAL IVP SCH (06:00)
[2020-05-08 08:58] VITALS: TEMP 98.6
[2020-05-08 09:32] LABS: Basophils # (A) 0.1 k/uL (0-0.2); Basophils % (A) 2 %; Eosinophils # (A) 0.1 k/uL (0-0.7); Eosinophils % (A) 3 %; HCT 54.5 % (39.0-53.0); HGB 17.8 gm/dL (13.0-17.5); Lymphocytes # (A) 0.8 k/uL (1.0-4.8); Lymphocytes % (A) 17 %; MCH 33.2 pg (25.0-35.0); MCHC 32.6 g/dL (31.0-37.0); MCV 101.8 fL (80.0-100.0); Macrocytosis Slight; Mean Platelet Volume 7.6; Monocytes # (A) 0.7 k/uL (0-1.0); Monocytes % (A) 14 %; Neutrophils # (A) 2.9 k/uL (1.3-7.7); Neutrophils % (A) 61 %; Platelet Count 169 k/uL (150-450); RBC 5.35 m/uL (4.30-5.90); RDW 13.1 % (11.5-15.5); WBC 4.8 k/uL (3.8-10.6)
[2020-05-08 09:34] LABS: African American GFR (CKD) >90 (>60 ml/min/1.73 sqM); Anion Gap 7 mmol/L; Blood Urea Nitrogen 6 mg/dL (9-20); Calcium 8.9 mg/dL (8.4-10.2); Carbon Dioxide 21 mmol/L (22-30); Chloride 107 mmol/L (98-107); Glucose 83 mg/dL (74-99); Non-African American GFR(CKD) >90 (>60 ml/min/1.73 sqM); Potassium 4.5 mmol/L (3.5-5.1); Sodium 135 mmol/L (137-145)
[2020-05-08] MEDS ORDERED: hydrALAZINE HCL 20 MG/ML 1 ML VIAL IVP STA (14:09)
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
[2020-05-08 14:57] VITALS: BP 157/82; PULSE 96; RESP 20
[2020-05-08] MEDS ORDERED: THIAMINE 100 MG TAB PO SCH (17:30)
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
== END 2020-05-08 15:18 | disposition home or self-care (01) | DRG 897 ==
LOC: EC 19:59 → 6NMEDSUR 22:55 → OBSVTOIN 05-08 12:20 → 6NMEDSUR 05-08 13:16
PROVIDERS: ADMIT Internal Medicine; ATTEND Internal Medicine
DX: F10.229 Alcohol dependence with intoxication, unspecified (principal); S22.42XA Multiple fractures of ribs, left side, initial encounter for closed fracture; R45.851 Suicidal ideations; F32.9 Major depressive disorder, single episode, unspecified; S02.2XXA Fracture of nasal bones, initial encounter for closed fracture; F17.200 Nicotine dependence, unspecified, uncomplicated; I16.0 Hypertensive urgency; D53.9 Nutritional anemia, unspecified; Y90.8 Blood alcohol level of 240 mg/100 ml or more; K70.10 Alcoholic hepatitis without ascites; Z59.0 Homelessness; Y93.55 Activity, bike riding; V18.4XXA Pedal cycle driver injured in noncollision transport accident in traffic accident, initial encounter; Z98.890 Other specified postprocedural states
CPT/HCPCS: 36415; 70450; 72125; 80048; 80053; 80320; 82075; 85025; 96361; 96374; 96375; 99285

== ENCOUNTER 2021-03-24 15:50 | Inpatient (IN) | payer OTHER ==
[2021-03-24 16:16] LABS: Basophils # (A) 0.1 k/uL (0-0.2); Basophils % (A) 2 %; Eosinophils # (A) 0.1 k/uL (0-0.7); Eosinophils % (A) 1 %; HCT 51.2 % (39.0-53.0); HGB 17.8 gm/dL (13.0-17.5); Lymphocytes # (A) 0.9 k/uL (1.0-4.8); Lymphocytes % (A) 10 %; MCH 35.5 pg (25.0-35.0); MCHC 34.7 g/dL (31.0-37.0); MCV 102.2 fL (80.0-100.0); Macrocytosis Slight; Mean Platelet Volume 7.7; Monocytes # (A) 0.7 k/uL (0-1.0); Monocytes % (A) 7 %; Neutrophils % (A) 77 %; Platelet Count 163 k/uL (150-450); RBC 5.01 m/uL (4.30-5.90); RDW 12.8 % (11.5-15.5); WBC 9.1 k/uL (3.8-10.6)
[2021-03-24] MEDS ORDERED: LORazepam 2 MG/ML INJ IV STA (16:24)
[2021-03-24 16:25] LABS: INR 0.9 (<1.2); Partial Thromboplastin Time 24.6 sec (22.0-30.0); Prothrombin Time 9.8 sec (9.0-12.0)
[2021-03-24 16:26] LABS: ALT 61 U/L (4-49); AST 124 U/L (17-59); African American GFR (CKD) >90 (>60 ml/min/1.73 sqM); Albumin 3.8 g/dL (3.5-5.0); Alkaline Phosphatase 198 U/L (38-126); Anion Gap 13 mmol/L; Blood Urea Nitrogen 3 mg/dL (9-20); Carbon Dioxide 21 mmol/L (22-30); Chloride 106 mmol/L (98-107); Glucose 123 mg/dL (74-99); Magnesium 2.2 mg/dL (1.6-2.3); Non-African American GFR(CKD) >90 (>60 ml/min/1.73 sqM); Potassium 4.6 mmol/L (3.5-5.1); Sodium 140 mmol/L (137-145); Total Bilirubin 0.5 mg/dL (0.2-1.3); Total Protein 6.9 g/dL (6.3-8.2)
[2021-03-24] MEDS ORDERED: DIPH,PERTUS(ACELL)TETVAC-LF 0.5 ML VIAL IM ONE (16:32)
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
[2021-03-24 16:39] LABS: Alcohol 461 mg/dL
--- NOTE | 2021-03-24 17:17 | CT ---
EXAMINATION TYPE: CT brain cspine wo con DATE OF EXAM: 03/24/2021 COMPARISON: 05/07/2020 HISTORY: Fall, right frontal injury. CT DLP: 1378.8 mGycm Automated exposure control for dose reduction was used. There is cerebral atrophy. There is no mass effect nor mid line shift. There is no sign of intracrani al hemorrhage. The calvarium is intact. There is mild right frontal scalp tissue swelling. The cervical vertebra show some spinal straightening. The disc spaces are fairly normal. There is no compression fracture. Posterior elements are intact. There is no evidence of bony destructive process . Prevertebral soft tissues are intact. IMPRESSION: Cerebral atrophy. No acute intracranial abnormality. Brain unchanged compared to old exam. Mild degenerative changes in the cervical spine with straightening. No fracture seen. No change mariela red to old exam.
--- NOTE | 2021-03-24 17:48 | XR ---
EXAMINATION TYPE: XR chest 1V portable DATE OF EXAM: 03/24/2021 COMPARISON: 05/07/2020 HISTORY: Fall. Pain. TECHNIQUE: Single view FINDINGS: Heart is normal. Lungs are clear of consolidation. There is some coarsening of interstitial markings. There are chest leads. IMPRESSION: There are new interstitial infiltrates in the lower lobes bilaterally compared to old exa m. No heart failure seen.
--- NOTE | 2021-03-24 17:49 | XR ---
EXAMINATION TYPE: XR pelvis AP view DATE OF EXAM: 03/24/2021 COMPARISON: NONE HISTORY: Pain TECHNIQUE: 2 views FINDINGS: Pelvic ring is intact. Proximal femurs and hip joints are intact. There is no hip dysplasia . Sacroiliac joints are intact. IMPRESSION: Negative exam. No fracture.
[2021-03-24] MEDS ORDERED: NALOXONE 0.4 MG/ML 1 ML VIAL IV PRN (18:23)
[2021-03-24] MEDS ORDERED: ACETAMINOPHEN TAB 325 MG TAB PO PRN (18:23)
[2021-03-24] MEDS ORDERED: LORazepam 2 MG/ML INJ IV PRN (18:28)
[2021-03-24] MEDS ORDERED: THIAMINE 100 MG/ML 2 ML VIAL IM STA (18:28)
[2021-03-24] MEDS: LORazepam 2 MG/ML INJ IV PRN ×2 (19:05→23:34)
[2021-03-24] MEDS: SODIUM CHLORIDE 0.9% 1,000 ML IV SCH (19:06)
[2021-03-24] MEDS: THIAMINE 100 MG TAB PO SCH (19:07)
[2021-03-25] MEDS: SODIUM CHLORIDE 0.9% 1,000 ML IV SCH ×2 (03:06→11:51)
[2021-03-25] MEDS: THIAMINE 100 MG TAB PO SCH ×2 (08:43→17:41)
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
[2021-03-25] MEDS: LORazepam 2 MG/ML INJ IV PRN ×5 (11:51→22:26)
[2021-03-25 21:22] VITALS: BP 159/93; PULSE 101; RESP 16; TEMP 99
--- NOTE | 2021-03-26 00:50 | P.HPIM ---
History of Present Illness H&P Date: 03/25/21 Chief Complaint: Acute alcohol intoxication Patient is a 55-year-old male with a known history of heavy alcohol abuse and currently everyday smoker and noncompliance with medications presents to ER due to alcohol intoxication and head injury. Patient was brought to the hospital by EMS. Apparently he was found on the pavement. No evidence of bruise or head injury. Patient was coming back to and uncooperative with EMS. Patient is still drowsy and lethargic and unable to provide much history. Patient has been afebrile. No nausea vomiting or diarrhea. Did not complain any chest pain or shortness breath as per EMS. CT head and cervical spine showed cerebral atrophy. No acute intracranial abnormality. Brain unchanged compared to old exam. Mild degenerative changes in the cervical spine with straightening. No fracture seen. Chest x-ray showed there are new interstitial infiltrates in the lower lobes bilaterally compared to old exam. No heart failure seen. Pelvic x-ray showed no acute fracture. EKG is normal sinus rhythm. Laboratory data showed sodium 140 potassium 4.6 bicarb is 21 BUN 3 and creatinine 0.62 lactic acid 3.4 and alcohol level CDLXI, AST 09/23/2060 alk phos 198 Review of Systems Complete review of systems could not be obtained from the patient. Past Medical History Past Medical History: No Reported History Additional Past Medical History / Comment(s): etoh History of Any Multi-Drug Resistant Organisms: None Reported Past Surgical History: Hernia Repair Past Anesthesia/Blood Transfusion Reactions: No Reported Reaction Past Psychological History: No Psychological Hx Reported Smoking Status: Current every day smoker Past Alcohol Use History: Abuse, Daily, Heavy Past Drug Use History: None Reported - Past Family History Family Family Medical History: No Reported History Medications and Allergies Home Medications Medication Instructions Recorded Confirmed Type Multivitamins, Thera [Multivitamin] 1 tab PO DAILY #30 tablet 03/26/21 Rx RX: Thiamine [Vitamin B-1] 100 mg PO DAILY #30 tablet 03/26/21 Rx Allergies Allergy/AdvReac Type Severity Reaction Status Date / Time No Known Allergies Allergy Verified 03/24/21 17:31 Physical Exam Vitals: Vital Signs Temp Pulse Pulse Resp BP BP Pulse Ox 03/25/21 12:56 98.5 F 82 17 157/91 97 03/25/21 05:51 98.6 F 104 H 16 149/84 94 L 03/24/21 20:00 97.6 F 69 16 135/86 96 03/24/21 19:45 97.9 F 88 20 131/89 95 03/24/21 19:00 98.0 F 89 22 127/93 97 03/24/21 17:55 89 20 129/80 96 03/24/21 16:52 107 H 22 146/99 95 03/24/21 15:52 98.4 F 117 H 20 166/121 92 L Intake and Output 03/24/21 03/25/21 03/25/21 22:59 06:59 14:59 Intake Total 1840 Balance 1840 Intake: Intake, IV Titration 1300 Amount Sodium Chloride 0.9% 1, 1300 000 ml @ 130 mls/hr IV . Q7H42M [facility] Rx#:[id number] Oral 540 Other: # Voids 0 2 # Bowel Movements 0 Weight 66.678 kg PHYSICAL EXAMINATION: Patient is lying in the bed comfortably, no acute distress, lethargic and drowsy.. HEENT: Normocephalic. Neck is supple. Pupils reactive. Nostrils clear. Oral cavity is moist. Neck reveals no JVD, carotid bruits, or thyromegaly. CHEST EXAMINATION: Trachea is central. Symmetrical expansion. Lung agee clear to auscultation and percussion. CARDIAC: Normal S1, S2 with no gallops. No murmurs ABDOMEN: Soft. Bowel sounds normal. No organomegaly. No abdominal bruits. Extremities: reveal no edema. No clubbing or cyanosis Neurologically patient is lethargic and drowsy. No gross focal deficits noted Skin: No rash or skin lesions. Psychiatric: Could not be assessed at this time. Musculoskeletal: No joint swelling or deformity. Results CBC & Chem 7: 03/26/21 05:22 03/24/21 16:06 Labs: Abnormal Lab Results - Last 24 Hours (Table) 03/24/21 03/24/21 03/24/21 Range/Units 16:06 16:06 16:06 Hgb 17.8 H (13.0-17.5) gm/dL MCV 102.2 H (80.0-100.0) fL MCH 35.5 H (25.0-35.0) pg Lymphocytes # 0.9 L (1.0-4.8) k/uL Carbon Dioxide 21 L (22-30) mmol/L BUN 3 L (9-20) mg/dL Creatinine 0.62 L (0.66-1.25) mg/dL Glucose 123 H (74-99) mg/dL Plasma Lactic Acid Adis 3.4 H* (0.7-2.0) mmol/L AST 124 H (17-59) U/L ALT 61 H (4-49) U/L Alkaline Phosphatase 198 H (38-126) U/L Serum Alcohol 461 H* mg/dL 03/24/21 Range/Units 19:42 Hgb (13.0-17.5) gm/dL MCV (80.0-100.0) fL MCH (25.0-35.0) pg Lymphocytes # (1.0-4.8) k/uL Carbon Dioxide (22-30) mmol/L BUN (9-20) mg/dL Creatinine (0.66-1.25) mg/dL Glucose (74-99) mg/dL Plasma Lactic Acid Adis 2.4 H* (0.7-2.0) mmol/L AST (17-59) U/L ALT (4-49) U/L Alkaline Phosphatase (38-126) U/L Serum Alcohol mg/dL Assessment and Plan Assessment: Acute alcohol intoxication with level CDLXI on admission Lactic acidosis due to dehydration and volume depletion Acute alcoholic hepatitis Severe alcohol abuse Ongoing nicotine addiction Status post fall. Head injury with laceration on the forehead. No fractures noted on the x-rays and CTs. DVT prophylaxis with heparin subcu Plan: Patient will be continued on IV hydration with normal saline. Follow-up lactic acid level. Continue with alcohol withdrawal protocol and replace electrolytes. Continue with thiamine and multivitamins. Follow up closely. Time with Patient: Greater than 30
[2021-03-26] MEDS: LORazepam 2 MG/ML INJ IV PRN ×3 (01:00→06:17)
[2021-03-26] MEDS: SODIUM CHLORIDE 0.9% 1,000 ML IV SCH ×2 (03:27→03:31)
[2021-03-26 06:28] LABS: Basophils # (A) 0.1 k/uL (0-0.2); Basophils % (A) 1 %; Eosinophils # (A) 0.1 k/uL (0-0.7); Eosinophils % (A) 1 %; HCT 47.4 % (39.0-53.0); HGB 15.9 gm/dL (13.0-17.5); Lymphocytes # (A) 0.7 k/uL (1.0-4.8); Lymphocytes % (A) 9 %; MCH 34.1 pg (25.0-35.0); MCHC 33.6 g/dL (31.0-37.0); MCV 101.4 fL (80.0-100.0); Mean Platelet Volume 8.5; Monocytes # (A) 0.6 k/uL (0-1.0); Monocytes % (A) 8 %; Neutrophils # (A) 5.7 k/uL (1.3-7.7); Neutrophils % (A) 79 %; Platelet Count 133 k/uL (150-450); RBC 4.67 m/uL (4.30-5.90); RDW 12.4 % (11.5-15.5); WBC 7.3 k/uL (3.8-10.6)
[2021-03-26] MEDS: THIAMINE 100 MG TAB PO SCH (08:10)
[2021-03-26] MEDS ORDERED: NICOTINE 21MG/24HR PATCH TRANSDERM SCH (09:00)
--- NOTE | 2021-03-26 11:14 | P.PN ---
Subjective Progress Note Date: 03/26/21 CHIEF COMPLAINT: Alcohol and head injury HISTORY OF PRESENT ILLNESS: Patient is lying in bed comfortably and sleeping. Patient's pain is controlled. He is tolerating diet. Denies any nausea or vomiting. Surgical services following in regards to trauma. Afebrile. WBC 7.3 PHYSICAL EXAM: VITAL SIGNS: Reviewed. GENERAL: Well-developed in no acute distress. HEENT: No sclera icterus. Extraocular movements grossly intact. Moist buccal mucosa. Head, Patient has a laceration on the right side of his forehead. It is scabbed over with dried blood. , normocephalic. ABDOMEN: Soft. Nondistended. Nontender. NEUROLOGIC: Alert and oriented. Cranial nerves II through XII grossly intact. ASSESSMENT: 1. Head injury with right laceration of the forehead 2. Alcohol intoxication PLAN: -No surgical intervention planned -Continue supportive care -Surgical service will sign off. Please call if there are any questions or concerns. Physician Accounting Manager Cpa note has been reviewed by physician. Signing provider agrees with the documented findings, assessment, and plan of care. Objective - Vital Signs Vital signs: Vital Signs Temp 99 F 03/25/21 20:00 Pulse 101 H 03/25/21 20:00 Resp 16 03/25/21 20:00 BP 159/93 03/25/21 20:00 Pulse Ox 96 03/25/21 20:00 Intake & Output 03/25/21 03/26/21 03/26/21 18:59 06:59 18:59 Intake Total 1560 2280 Balance 1560 2280 Intake: Intake, IV Titration 1560 1430 Amount Sodium Chloride 0.9% 1, 1560 1430 000 ml @ 130 mls/hr IV . Q7H42M [facility] Rx#:[id number] Oral 850 Other: # Voids 1 # Bowel Movements 0 - Labs CBC & Chem 7: 03/26/21 05:22 03/24/21 16:06 Labs: Abnormal Lab Results - Last 24 Hours (Table) 03/26/21 Range/Units 05:22 MCV 101.4 H (80.0-100.0) fL Plt Count 133 L (150-450) k/uL Lymphocytes # 0.7 L (1.0-4.8) k/uL
[2021-03-26 11:51] LABS: African American GFR (CKD) 132.1 (60.0-200.0); Blood Urea Nitrogen <5.0 mg/dL (9.0-27.0); Calcium 8.6 mg/dL (8.7-10.3); Carbon Dioxide 22.6 mmol/L (21.6-31.8); Chloride 101 mmol/L (96-109); Glucose 70 mg/dL (70-110); Potassium 3.2 mmol/L (3.5-5.5); Sodium 133 mmol/L (135-145)
--- NOTE | 2021-03-26 13:38 | P.DS ---
Providers Date of admission: 03/24/21 18:26 Expected date of discharge: 03/26/21 Attending physician: Star Cabello MD Consults: 03/24/21 18:25 Consult Physician Routine Consulting Provider: Nilson Banegas Consult Reason/Comments: trauma Do you want consulting provider notified?: Yes Primary care physician: Stated None Hospital Course: Final diagnosis Acute alcohol intoxication Lactic acidosis due to dehydration and volume depletion Acute alcoholic hepatitis Severe alcohol abuse Ongoing nicotine addiction Head injury with laceration on the forehead status post fall. No fractures noted on the x-rays and CTs. DVT prophylaxis full code Discharge disposition Patient is being discharged in a stable condition with guarded prognosis to home. Patient will follow-up with Dr. Sargent in the outpatient setting upon discharge. Resources were provided. Total time taken is greater than 35 minutes. Hospital course This is a 55-year-old male who was recently admitted with alcohol intoxication and head injury status post fall and is being closely monitored. Patient has a known history of heavy alcohol abuse and every day smoker with noncompliance to medications and multiple ER visits for alcohol intoxication and falls. Patient was monitored and maintained on CIWA protocol with no acute overnight issues noted. Patient up and walking with a steady gait requesting to leave. Discussed with the patient at length about establishing with primary care provider and resources were made available along with also following up closely outpatient with [facility] for possible alcohol rehab. Patient has made comments of no plans for discontinuing drinking alcohol at this time. Patient was seen and evaluated by surgery with no surgical interventions. P atient again instructed to refrain from alcohol intake. Currently no reports of chest pain, shortness of breath, or palpitations. Patient is afebrile. No reports of nausea or vomiting and patient is tolerating diet. Patient will be discharged home today. Guarded prognosis due to noncompliance and multiple readmissions for EtOH abuse and intoxication. On exam vital signs are stable. Cardio S1, S2 are muffled. Respiratory system shows diminished breath sounds at the bases with no wheezing or rhonchi noted. Abdomen is soft and nontender. Nervous system shows no focal deficits. Please refer to medication reconciliation sheet for a list of medications. Patient Condition at Discharge: Fair Plan - Discharge Summary New Discharge Prescriptions: New Multivitamins, Thera [Multivitamin] 1 tab PO DAILY #30 tablet Thiamine [Vitamin B-1] 100 mg PO DAILY #30 tablet Discharge Medication List Multivitamins, Thera [Multivitamin] 1 tab PO DAILY #30 tablet 03/26/21 [Rx] Thiamine [Vitamin B-1] 100 mg PO DAILY #30 tablet 03/26/21 [Rx] Follow up Appointment(s)/Referral(s): Guevara Sargent MD [REFERRING] - 1-2 Days Patient Instructions/Handouts: Alcohol Intoxication (DC) Activity/Diet/Wound Care/Special Instructions: Activity Limited until follow-up Follow-up with primary care provider upon discharge and establish with one Follow-up community mental health outpatient for possible alcohol rehab Avoid alcohol Continue current diet Discharge Disposition: HOME SELF-CARE
== END 2021-03-26 11:14 | disposition home or self-care (01) | DRG 897 ==
LOC: EC 15:50 → OBSVTOIN 18:26 → 5NMEDONC 18:26
PROVIDERS: ADMIT Internal Medicine; ATTEND Internal Medicine
DX: F10.129 Alcohol abuse with intoxication, unspecified (principal); E87.2 Acidosis; K70.10 Alcoholic hepatitis without ascites; S01.81XA Laceration without foreign body of other part of head, initial encounter; S00.83XA Contusion of other part of head, initial encounter; E86.0 Dehydration; Y90.8 Blood alcohol level of 240 mg/100 ml or more; M47.812 Spondylosis without myelopathy or radiculopathy, cervical region; T50.906A Underdosing of unspecified drugs, medicaments and biological substances, initial encounter; Z91.128 Patient's intentional underdosing of medication regimen for other reason; Z91.19 Patient's noncompliance with other medical treatment and regimen; F17.200 Nicotine dependence, unspecified, uncomplicated; Z87.19 Personal history of other diseases of the digestive system; Z98.890 Other specified postprocedural states; W19.XXXA Unspecified fall, initial encounter; Y92.480 Sidewalk as the place of occurrence of the external cause
CPT/HCPCS: 36415; 70450; 71045; 72125; 72170; 80048; 80053; 80320; 83605; 83735; 85025; 85610; 85730; 90471; 90715; 93005; 96372; 96374; 99285

== ENCOUNTER 2021-03-30 01:55 | Emergency (ER) | payer OTHER ==
[2021-03-30 02:03] VITALS: RESP 18; TEMP 98
[2021-03-30] MEDS ORDERED: DIPH,PERTUS(ACELL)TETVAC-LF 0.5 ML VIAL IM ONE (02:07)
--- NOTE | 2021-03-30 02:14 | ED ---
General Adult HPI - General Source: patient, EMS Mode of arrival: EMS Limitations: no limitations <Gwendolyn Palmer - Last Filed: 03/30/21 02:10> <Emory Andrew - Last Filed: 03/30/21 05:52> - General Chief complaint: Fall Stated complaint: Fall Time Seen by Provider: 03/30/21 01:59 - History of Present Illness Initial comments: 55 year-old male patient presents to the emergency department for evaluation after a fall. Patient admits to heavy alcohol use today. States he was walking when he "blacked out" and fell hitting his face. Patient reports pain around his left eye. Denies any headache, neck pain, or back pain. Denies any extremity injury. Denies use of blood thinning medication. His any chest pain, nausea, vomiting, dizziness, weakness. Denies numbness or tingling to the extremities. (Gwendolyn Palmer) - Related Data Previous Rx's Medication Instructions Recorded Multivitamins, Thera [Multivitamin] 1 tab PO DAILY #30 tablet 03/26/21 Thiamine [Vitamin B-1] 100 mg PO DAILY #30 tablet 03/26/21 Allergies Allergy/AdvReac Type Severity Reaction Status Date / Time No Known Allergies Allergy Verified 03/24/21 17:31 Review of Systems ROS Other: All systems not noted in ROS Statement are negative. <Gwendolyn Palmer - Last Filed: 03/30/21 02:10> ROS Other: All systems not noted in ROS Statement are negative. <Emory Andrew - Last Filed: 03/30/21 05:52> ROS Statement: Those systems with pertinent positive or pertinent negative responses have been documented in the HPI. Past Medical History Past Medical History: No Reported History Additional Past Medical History / Comment(s): etoh History of Any Multi-Drug Resistant Organisms: None Reported Past Surgical History: Hernia Repair Past Anesthesia/Blood Transfusion Reactions: No Reported Reaction Past Psychological History: No Psychological Hx Reported Smoking Status: Current every day smoker Past Alcohol Use History: Abuse, Daily, Heavy Past Drug Use History: None Reported - Past Family History Family Family Medical History: No Reported History <Gwendolyn Palmer - Last Filed: 03/30/21 02:10> General Exam Limitations: no limitations General appearance: alert, in no apparent distress, appears intoxicated, other (Physical well-developed, well-nourished adult male patient in no acute distress. Vital signs upon presentation are temperature 98.2F, pulse 76, respirations 18, blood pressure 131/96, pulse ox 95% on room air.) Eye exam: Present: normal appearance, PERRL, EOMI, periorbital tenderness (Left), other (Abrasion noted to the left eyebrow and left orbital region. No hyphema. No ecchymosis noted.). Absent: scleral icterus, conjunctival injection, nystagmus, periorbital swelling ENT exam: Present: normal exam, normal oropharynx, mucous membranes moist, TM's normal bilaterally (No hemotympanum) Neck exam: Present: normal inspection, full ROM, other (Nontender, no step-off, no deformity to firm midline palpation of the posterior cervical spine. Full range of motion without pain or limitation.). Absent: tenderness, meningismus, lymphadenopathy Respiratory exam: Present: normal lung sounds bilaterally. Absent: respiratory distress, wheezes, rales, rhonchi, stridor Cardiovascular Exam: Present: regular rate, normal rhythm, normal heart sounds. Absent: systolic murmur, diastolic murmur, rubs, gallop, clicks GI/Abdominal exam: Present: soft, normal bowel sounds. Absent: distended, tenderness, guarding, rebound, rigid Extremities exam: Present: normal inspection, full ROM, normal capillary refill. Absent: tenderness, pedal edema, joint swelling, calf tenderness Back exam: Present: normal inspection, other (Nontender, no step-off, no deformity to firm midline palpation of the thoracic and lumbar vertebrae. Full range of motion without pain or limitation.). Absent: vertebral tenderness Neurological exam: Present: alert, CN II-XII intact. Absent: oriented X3 (Oriented 2) Psychiatric exam: Present: normal affect, normal mood Skin exam: Present: warm, dry, intact, normal color. Absent: rash <Gwendolyn Palmer - Last Filed: 03/30/21 02:10> Course Vital Signs 03/30/21 01:58 Temperature 98 F Pulse Rate 76 Respiratory 18 Rate Blood Pressure 131/96 O2 Sat by Pulse 95 Oximetry Disposition <Gwendolyn Pamler - Last Filed: 03/30/21 02:10> Is patient prescribed a controlled substance at d/c from ED?: No <Emory Andrew - Last Filed: 03/30/21 05:52> Clinical Impression: Alcoholic intoxication, Fall, Blunt head trauma, Fracture of left mandibular angle Disposition: HOME SELF-CARE Condition: Fair Instructions (If sedation given, give patient instructions): Fall Prevention for Older Adults (ED), Alcohol Intoxication (ED), Jaw Fracture in Adults (ED) Referrals: Emory Marsh DDS [STAFF PHYSICIAN] - 1-2 days
--- NOTE | 2021-03-30 03:24 | CT ---
EXAMINATION TYPE: CT brain toniine wo con DATE OF EXAM: 03/30/2021 COMPARISON: 03/24/2021 HISTORY: Fall Headache. Neck pain CT DLP: 1096.10 mGycm Automated exposure control for dose reduction was used. There is some cerebral cortical atrophy. There is no mass effect nor midline shift. There is no sign of intracranial hemorrhage. The calvarium is intact. Skull base is intact. The cervical vertebra have normal alignment. There is minor spurring at C5-6 anteriorly. Facet joints are intact. IMPRESSION: Mild cerebral atrophy. No acute intracranial abnormality. Minor degenerative spurring in the cervical spine. No fracture. No adverse change compared to old exam.
--- NOTE | 2021-03-30 03:54 | CT ---
EXAMINATION TYPE: CT facial bones wo con DATE OF EXAM: 03/30/2021 COMPARISON: 02/26/2015 HISTORY: Fall, Laceration above left eye CT DLP: 1096.10 mGycm Automated exposure control for dose reduction was used. Images were obtained from the bottom of the mandible to the top of the frontal sinuses without contra st. There is impacted fracture of the left mandibular condyle. There is comminution. There is no dislocat ion. There is approximate 10 mm lateral displacement of the mandible in relation to the mandibular co ndyle. I do not see a definite additional mandible fracture. The zygomatic arches appear intact. There is comminuted nasal bone fracture with fragment deviation t o the right side. There is flattening of the fragments. The orbital margins are intact. There is no e vidence of a blowout fracture. There is no evidence of retro-orbital mass. The maxilla is intact. The re is normal aeration of the mastoid sinuses. There is some apparent debris in the right external aud itory canal. IMPRESSION: Depressed comminuted nasal bone fracture. This fracture is old and not changed in position compared t o CT scan of 02/26/2015. Left mandibular condyle displaced fracture. Fracture appears acute and is new compared to old exam.
[2021-03-30 06:04] VITALS: BP 118/84; PULSE 98
== END 2021-03-30 06:05 | disposition home or self-care (01) ==
LOC: EC 01:55
DX: S02.612A Fracture of condylar process of left mandible, initial encounter for closed fracture (principal); S02.2XXA Fracture of nasal bones, initial encounter for closed fracture; S00.212A Abrasion of left eyelid and periocular area, initial encounter; F10.229 Alcohol dependence with intoxication, unspecified; F17.200 Nicotine dependence, unspecified, uncomplicated; Z23 Encounter for immunization; W01.10XA Fall on same level from slipping, tripping and stumbling with subsequent striking against unspecified object, initial encounter; Y93.01 Activity, walking, marching and hiking
CPT/HCPCS: 70450; 70486; 72125; 90471; 90715; 99284

== ENCOUNTER 2021-06-16 03:25 | Inpatient (IN) | payer OTHER ==
[2021-06-16 03:36] VITALS: TEMP 96
[2021-06-16] MEDS ORDERED: PANTOPRAZOLE 40 MG/10 ML VIAL IVP STA (05:25)
[2021-06-16 05:57] LABS: Basophils # (A) 0.1 k/uL (0-0.2); Basophils % (A) 1 %; Eosinophils # (A) 0.2 k/uL (0-0.7); Eosinophils % (A) 3 %; HCT 49.6 % (39.0-53.0); HGB 16.7 gm/dL (13.0-17.5); Lymphocytes # (A) 1.1 k/uL (1.0-4.8); Lymphocytes % (A) 18 %; MCH 34.7 pg (25.0-35.0); MCHC 33.7 g/dL (31.0-37.0); MCV 102.9 fL (80.0-100.0); Macrocytosis Slight; Mean Platelet Volume 7.8; Monocytes # (A) 0.8 k/uL (0-1.0); Monocytes % (A) 13 %; Neutrophils # (A) 3.8 k/uL (1.3-7.7); Neutrophils % (A) 61 %; Platelet Count 135 k/uL (150-450); RBC 4.82 m/uL (4.30-5.90); RDW 12.7 % (11.5-15.5); WBC 6.2 k/uL (3.8-10.6)
[2021-06-16] MEDS ORDERED: NALOXONE 0.4 MG/ML 1 ML VIAL IV PRN (06:17)
[2021-06-16 06:26] LABS: ALT 51 U/L (4-49); AST 80 U/L (17-59); African American GFR (CKD) >90 (>60 ml/min/1.73 sqM); Albumin 3.2 g/dL (3.5-5.0); Alkaline Phosphatase 161 U/L (38-126); Anion Gap 10 mmol/L; Blood Urea Nitrogen 4 mg/dL (9-20); Calcium 8.8 mg/dL (8.4-10.2); Carbon Dioxide 23 mmol/L (22-30); Chloride 105 mmol/L (98-107); Glucose 94 mg/dL (74-99); Non-African American GFR(CKD) >90 (>60 ml/min/1.73 sqM); Potassium 3.8 mmol/L (3.5-5.1); Sodium 138 mmol/L (137-145); Total Bilirubin 0.4 mg/dL (0.2-1.3); Total Protein 6.2 g/dL (6.3-8.2)
[2021-06-16] MEDS ORDERED: LORazepam 2 MG/ML INJ IV PRN ×3 (06:34)
[2021-06-16 06:57] VITALS: BP 128/93; PULSE 101; RESP 18
--- NOTE | 2021-06-16 08:21 | ED ---
Alcohol HPI - General Chief Complaint: Alcohol Stated Complaint: Alcohol Time Seen by Provider: 06/16/21 03:41 Source: patient Mode of arrival: ambulatory - History of Present Illness Initial Comments: This patient's 55-year-old man who was found attempting to sleep on hospital [facility]. He declines any complaints. He denies recent fall or injury. The patient does admit to drinking tonight. MD Complaint: alcohol intoxication Last Drink: unknown Previous Visits for Alcohol Intoxication?: Yes Recent Trauma: No Associated Symptoms: denies other symptoms Treatments Prior to Arrival: none Chronic Alcohol Use: Yes - Related Data Previous Rx's Medication Instructions Recorded Multivitamins, Thera [Multivitamin] 1 tab PO DAILY #30 tablet 03/26/21 Thiamine [Vitamin B-1] 100 mg PO DAILY #30 tablet 03/26/21 Allergies Allergy/AdvReac Type Severity Reaction Status Date / Time No Known Allergies Allergy Verified 03/24/21 17:31 Review of Systems ROS Statement: Those systems with pertinent positive or pertinent negative responses have been documented in the HPI. ROS Other: All systems not noted in ROS Statement are negative. Constitutional: Denies: fever, chills Respiratory: Denies: cough, dyspnea Cardiovascular: Denies: chest pain, palpitations Gastrointestinal: Denies: abdominal pain, nausea, vomiting, diarrhea Genitourinary: Denies: dysuria, hematuria Musculoskeletal: Denies: back pain Skin: Denies: rash Neurological: Denies: headache, weakness, numbness Past Medical History Past Medical History: No Reported History Additional Past Medical History / Comment(s): etoh History of Any Multi-Drug Resistant Organisms: None Reported Past Surgical History: Hernia Repair Past Anesthesia/Blood Transfusion Reactions: No Reported Reaction Past Psychological History: No Psychological Hx Reported Smoking Status: Current every day smoker Past Alcohol Use History: Abuse, Daily, Heavy Past Drug Use History: None Reported - Past Family History Family Family Medical History: No Reported History General Exam General appearance: alert, appears intoxicated Head exam: Present: atraumatic, normocephalic Eye exam: Present: normal appearance, PERRL, EOMI, nystagmus. Absent: scleral icterus, conjunctival injection ENT exam: Present: normal oropharynx Respiratory exam: Present: normal lung sounds bilaterally. Absent: respiratory distress, wheezes, rales, rhonchi, stridor Cardiovascular Exam: Present: regular rate, normal rhythm, normal heart sounds. Absent: systolic murmur, diastolic murmur, rubs, gallop GI/Abdominal exam: Present: soft. Absent: distended, tenderness, guarding, rebound Extremities exam: Present: normal inspection, normal capillary refill. Absent: pedal edema, calf tenderness Back exam: Present: normal inspection. Absent: CVA tenderness (R), CVA tenderness (L) Neurological exam: Present: alert, CN II-XII intact. Absent: motor sensory deficit Skin exam: Present: warm, dry, intact, normal color. Absent: rash Course Vital Signs 06/16/21 06/16/21 06/16/21 03:26 04:36 06:03 Temperature 96 F L Pulse Rate 82 82 74 Respiratory 22 20 30 H Rate Blood Pressure 128/106 114/64 116/84 O2 Sat by Pulse 95 96 95 Oximetry 06/16/21 07:00 Temperature Pulse Rate 101 H Respiratory 18 Rate Blood Pressure 128/93 O2 Sat by Pulse 93 L Oximetry Medical Decision Making - Medical Decision Making The patient was sleeping in the exam room then woke up and had vomiting with some coffee-ground emesis. There is no red blood. In light of this patient be admitted to observation to rule out further marked amounts of GI bleeding. His initial hemoglobin is normal and there is no hypotension or tachycardia. - Lab Data Result diagrams: 06/16/21 05:34 06/16/21 05:34 Lab Results 06/16/21 06/16/21 06/16/21 Range/Units 05:30 05:34 05:34 WBC 6.2 (3.8-10.6) k/uL RBC 4.82 (4.30-5.90) m/uL Hgb 16.7 (13.0-17.5) gm/dL Hct 49.6 (39.0-53.0) % MCV 102.9 H (80.0-100.0) fL MCH 34.7 (25.0-35.0) pg MCHC 33.7 (31.0-37.0) g/dL RDW 12.7 (11.5-15.5) % Plt Count 135 L (150-450) k/uL MPV 7.8 Neutrophils % 61 % Lymphocytes % 18 % Monocytes % 13 % Eosinophils % 3 % Basophils % 1 % Neutrophils # 3.8 (1.3-7.7) k/uL Lymphocytes # 1.1 (1.0-4.8) k/uL Monocytes # 0.8 (0-1.0) k/uL Eosinophils # 0.2 (0-0.7) k/uL Basophils # 0.1 (0-0.2) k/uL Macrocytosis Slight APTT 25.4 (22.0-30.0) sec Sodium (137-145) mmol/L Potassium (3.5-5.1) mmol/L Chloride (98-107) mmol/L Carbon Dioxide (22-30) mmol/L Anion Gap mmol/L BUN (9-20) mg/dL Creatinine (0.66-1.25) mg/dL Est GFR (CKD-EPI)AfAm (>60 ml/min/1.73 sqM) Est GFR (CKD-EPI)NonAf (>60 ml/min/1.73 sqM) Glucose (74-99) mg/dL Calcium (8.4-10.2) mg/dL Total Bilirubin (0.2-1.3) mg/dL AST (17-59) U/L ALT (4-49) U/L Alkaline Phosphatase (38-126) U/L Troponin I (0.000-0.034) ng/mL Total Protein (6.3-8.2) g/dL Albumin (3.5-5.0) g/dL Gastric Occult Blood Positive (Negative) Blood Type Blood Type Confirm Blood Type Recheck Bld Type Recheck Status Antibody Screen Spec Expiration Date 06/16/21 06/16/21 06/16/21 Range/Units 05:34 05:34 05:34 WBC (3.8-10.6) k/uL RBC (4.30-5.90) m/uL Hgb (13.0-17.5) gm/dL Hct (39.0-53.0) % MCV (80.0-100.0) fL MCH (25.0-35.0) pg MCHC (31.0-37.0) g/dL RDW (11.5-15.5) % Plt Count (150-450) k/uL MPV Neutrophils % % Lymphocytes % % Monocytes % % Eosinophils % % Basophils % % Neutrophils # (1.3-7.7) k/uL Lymphocytes # (1.0-4.8) k/uL Monocytes # (0-1.0) k/uL Eosinophils # (0-0.7) k/uL Basophils # (0-0.2) k/uL Macrocytosis APTT (22.0-30.0) sec Sodium 138 (137-145) mmol/L Potassium 3.8 (3.5-5.1) mmol/L Chloride 105 (98-107) mmol/L Carbon Dioxide 23 (22-30) mmol/L Anion Gap 10 mmol/L BUN 4 L (9-20) mg/dL Creatinine 0.57 L (0.66-1.25) mg/dL Est GFR (CKD-EPI)AfAm >90 (>60 ml/min/1.73 sqM) Est GFR (CKD-EPI)NonAf >90 (>60 ml/min/1.73 sqM) Glucose 94 (74-99) mg/dL Calcium 8.8 (8.4-10.2) mg/dL Total Bilirubin 0.4 (0.2-1.3) mg/dL AST 80 H (17-59) U/L ALT 51 H (4-49) U/L Alkaline Phosphatase 161 H (38-126) U/L Troponin I <0.012 (0.000-0.034) ng/mL Total Protein 6.2 L (6.3-8.2) g/dL Albumin 3.2 L (3.5-5.0) g/dL Gastric Occult Blood (Negative) Blood Type O Positive Blood Type Confirm Blood Type Recheck No Previous Record Bld Type Recheck Status CABO Indicated Antibody Screen NEGATIVE Spec Expiration Date 06/19/2021 - 233306/16/21 Range/Units 05:39 WBC (3.8-10.6) k/uL RBC (4.30-5.90) m/uL Hgb (13.0-17.5) gm/dL Hct (39.0-53.0) % MCV (80.0-100.0) fL MCH (25.0-35.0) pg MCHC (31.0-37.0) g/dL RDW (11.5-15.5) % Plt Count (150-450) k/uL MPV Neutrophils % % Lymphocytes % % Monocytes % % Eosinophils % % Basophils % % Neutrophils # (1.3-7.7) k/uL Lymphocytes # (1.0-4.8) k/uL Monocytes # (0-1.0) k/uL Eosinophils # (0-0.7) k/uL Basophils # (0-0.2) k/uL Macrocytosis APTT (22.0-30.0) sec Sodium (137-145) mmol/L Potassium (3.5-5.1) mmol/L Chloride (98-107) mmol/L Carbon Dioxide (22-30) mmol/L Anion Gap mmol/L BUN (9-20) mg/dL Creatinine (0.66-1.25) mg/dL Est GFR (CKD-EPI)AfAm (>60 ml/min/1.73 sqM) Est GFR (CKD-EPI)NonAf (>60 ml/min/1.73 sqM) Glucose (74-99) mg/dL Calcium (8.4-10.2) mg/dL Total Bilirubin (0.2-1.3) mg/dL AST (17-59) U/L ALT (4-49) U/L Alkaline Phosphatase (38-126) U/L Troponin I (0.000-0.034) ng/mL Total Protein (6.3-8.2) g/dL Albumin (3.5-5.0) g/dL Gastric Occult Blood (Negative) Blood Type Blood Type Confirm O Positive Blood Type Recheck Bld Type Recheck Status Antibody Screen Spec Expiration Date Disposition Clinical Impression: Alcoholic intoxication, GI bleeding Disposition: ADMITTED IP TO THIS HOSP Condition: Fair Is patient prescribed a controlled substance at d/c from ED?: No
[2021-06-16] MEDS ORDERED: THIAMINE 100 MG TAB PO SCH (17:30)
== END 2021-06-16 12:31 | disposition left against medical advice (07) | DRG 894 ==
LOC: EC 03:25 → OBSVTOIN 06:17 → 6NMEDSUR 06:17
PROVIDERS: ADMIT Hospitalist; ATTEND Hospitalist
DX: F10.129 Alcohol abuse with intoxication, unspecified (principal); K92.2 Gastrointestinal hemorrhage, unspecified; F17.200 Nicotine dependence, unspecified, uncomplicated; Z20.822 Contact with and (suspected) exposure to COVID-19
CPT/HCPCS: 36415; 80053; 82075; 82271; 84484; 85025; 85730; 86850; 86900; 86901; 87635; 96374; 99284

== ENCOUNTER 2021-07-01 00:46 | Emergency (ER) | payer OTHER ==
[2021-07-01 00:55] VITALS: TEMP 97.8
--- NOTE | 2021-07-01 04:12 | CT ---
EXAMINATION TYPE: CT brain wo con DATE OF EXAM: 07/01/2021 COMPARISON: 03/30/2021 HISTORY: ETOH. AMS CT DLP: 1255.4 mGycm Automated exposure control for dose reduction was used. Ventricles have normal size. There is no mass effect nor midline shift. There is mild cerebral atroph y. There is no evidence of intracranial hemorrhage. The calvarium is intact. Skull base is intact. IMPRESSION: Cerebral atrophy. No acute intracranial abnormality. No change.
--- NOTE | 2021-07-01 04:17 | ED ---
Alcohol HPI - General Chief Complaint: Alcohol Stated Complaint: ETOH Time Seen by Provider: 07/01/21 01:04 Source: EMS - History of Present Illness Initial Comments: This patient is a 55-year-old man brought in for suspected intoxication. He was reportedly seemed to be staggering in a roadway. The patient does admit to drinking. Patient denies injury though he has fallen recently not sure when. MD Complaint: alcohol intoxication Last Drink: unknown Previous Visits for Alcohol Intoxication?: Yes Recent Trauma: No Associated Symptoms: denies other symptoms Treatments Prior to Arrival: none Chronic Alcohol Use: Yes - Related Data Home Medications Medication Instructions Recorded Confirmed No Known Home Medications 06/16/21 06/16/21 Allergies Allergy/AdvReac Type Severity Reaction Status Date / Time No Known Allergies Allergy Verified 07/01/21 00:54 Review of Systems ROS Statement: Those systems with pertinent positive or pertinent negative responses have been documented in the HPI. ROS Other: All systems not noted in ROS Statement are negative. Constitutional: Denies: fever Eyes: Denies: vision change Respiratory: Denies: cough, dyspnea Cardiovascular: Denies: chest pain, syncope Gastrointestinal: Denies: abdominal pain, nausea, vomiting Genitourinary: Denies: dysuria Musculoskeletal: Denies: back pain Neurological: Denies: headache Past Medical History Past Medical History: No Reported History Additional Past Medical History / Comment(s): etoh History of Any Multi-Drug Resistant Organisms: None Reported Past Surgical History: Hernia Repair Past Anesthesia/Blood Transfusion Reactions: No Reported Reaction Past Psychological History: No Psychological Hx Reported Smoking Status: Current every day smoker Past Alcohol Use History: Abuse, Daily, Heavy Past Drug Use History: None Reported - Past Family History Family Family Medical History: No Reported History General Exam General appearance: alert, appears intoxicated Head exam: Present: atraumatic, normocephalic Eye exam: Present: normal appearance. Absent: scleral icterus, conjunctival injection Neck exam: Present: normal inspection, full ROM. Absent: tenderness Respiratory exam: Present: normal lung sounds bilaterally. Absent: respiratory distress, wheezes, rales, rhonchi, stridor, chest wall tenderness Cardiovascular Exam: Present: regular rate, normal rhythm, normal heart sounds. Absent: systolic murmur, diastolic murmur, rubs, gallop GI/Abdominal exam: Present: soft. Absent: distended, tenderness, guarding, rebound, mass Extremities exam: Present: normal inspection, normal capillary refill. Absent: pedal edema, calf tenderness Back exam: Present: normal inspection. Absent: CVA tenderness (R), CVA tenderness (L) Neurological exam: Present: alert Skin exam: Present: warm, dry, intact, normal color. Absent: rash Course Vital Signs 07/01/21 00:48 Temperature 97.8 F Pulse Rate 78 Respiratory 18 Rate Blood Pressure 118/76 O2 Sat by Pulse 97 Oximetry Disposition Clinical Impression: Alcoholic intoxication, Abrasion Disposition: HOME SELF-CARE Condition: Fair Instructions (If sedation given, give patient instructions): Alcohol Intoxication (ED) Is patient prescribed a controlled substance at d/c from ED?: No Referrals: None,Stated [Primary Care Provider] - 1-2 days
[2021-07-01 06:42] VITALS: BP 130/74; PULSE 84; RESP 20
== END 2021-07-01 07:49 | disposition home or self-care (01) ==
LOC: EC 00:46
DX: T14.8XXA Other injury of unspecified body region, initial encounter (principal); F10.129 Alcohol abuse with intoxication, unspecified; F17.200 Nicotine dependence, unspecified, uncomplicated; X58.XXXA Exposure to other specified factors, initial encounter
CPT/HCPCS: 70450; 99284

== ENCOUNTER 2021-07-02 00:40 | Emergency (ER) | payer OTHER ==
--- NOTE | 2021-07-02 01:00 | ED ---
Alcohol HPI - General Stated Complaint: ETOH Time Seen by Provider: 07/02/21 00:45 Source: police, RN notes reviewed, old records reviewed Mode of arrival: EMS Limitations: altered mental status - History of Present Illness Initial Comments: This is a 55-year-old male with a significant historian secondary to intoxication. Patient brought in for evaluation regarding significant alcohol intoxication found on the ground. Patient was in the ER last night for same symptoms. MD Complaint: alcohol intoxication Last Drink: just [employer] -: days(s) Previous Visits for Alcohol Intoxication?: Yes Recent Trauma: Yes Associated Symptoms: denies other symptoms Treatments Prior to Arrival: none Chronic Alcohol Use: Yes - Related Data Home Medications Medication Instructions Recorded Confirmed No Known Home Medications 06/16/21 06/16/21 Allergies Allergy/AdvReac Type Severity Reaction Status Date / Time No Known Allergies Allergy Verified 07/01/21 00:54 Review of Systems ROS Statement: Those systems with pertinent positive or pertinent negative responses have been documented in the HPI. ROS Other: All systems not noted in ROS Statement are negative. Past Medical History Past Medical History: No Reported History Additional Past Medical History / Comment(s): etoh History of Any Multi-Drug Resistant Organisms: None Reported Past Surgical History: Hernia Repair Past Anesthesia/Blood Transfusion Reactions: No Reported Reaction Past Psychological History: No Psychological Hx Reported Smoking Status: Current every day smoker Past Alcohol Use History: Abuse, Daily, Heavy Past Drug Use History: None Reported - Past Family History Family Family Medical History: No Reported History General Exam General appearance: appears intoxicated Head exam: Present: atraumatic, normocephalic, normal inspection Eye exam: Present: normal appearance, PERRL, EOMI. Absent: scleral icterus, conjunctival injection, periorbital swelling ENT exam: Present: normal exam, mucous membranes moist Neck exam: Present: normal inspection. Absent: tenderness, meningismus, lymphadenopathy Respiratory exam: Present: normal lung sounds bilaterally. Absent: respiratory distress, wheezes, rales, rhonchi, stridor Cardiovascular Exam: Present: regular rate, normal rhythm, normal heart sounds. Absent: systolic murmur, diastolic murmur, rubs, gallop, clicks GI/Abdominal exam: Present: soft, normal bowel sounds. Absent: distended, tenderness, guarding, rebound, rigid Extremities exam: Present: normal inspection, full ROM, normal capillary refill. Absent: tenderness, pedal edema, joint swelling, calf tenderness Back exam: Present: normal inspection Neurological exam: Present: alert, oriented X3, CN II-XII intact Psychiatric exam: Present: normal affect, normal mood Skin exam: Present: warm, dry, intact, normal color. Absent: rash Course Vital Signs 07/02/21 01:10 Temperature 97.8 F Respiratory 20 Rate - Reevaluation(s) Reevaluation #1: 07/02/21 01:00 medical record is reviewed Procedures - Restraint - Face to Face Restraint Occurrence 1 Patient's Immediate Situation: Endangers self safety, Endangers others' safety Patient's Reaction to the Intervention: Uncooperative, Belligerent, Anxious Patient's Medical & Behavioral Condition: Agitated, Other (see comment) (Intoxicated) Need to Continue or Terminate Restraint or Seclusion: Continue Face to Face Eval of Restraint Date: 07/02/21 Face to Face Eval of Restraint Time: 01:10 Medical Decision Making - Medical Decision Making 55 male presenting with recurrent evaluation for significant alcohol intoxication found down. Patient has normal computed tomography scan here in the ER and can be discharged home - Radiology Data Radiology results: report reviewed (CT brain C-spine is negative for acute disease), image reviewed Disposition Clinical Impression: Alcoholic intoxication Disposition: HOME SELF-CARE Condition: Fair Instructions (If sedation given, give patient instructions): Alcohol Intoxication (ED) Is patient prescribed a controlled substance at d/c from ED?: No Referrals: None,Stated [Primary Care Provider] - 1-2 days
[2021-07-02 01:16] VITALS: TEMP 97.8
[2021-07-02] MEDS ORDERED: LORazepam 2 MG/ML INJ IM STA (01:48)
--- NOTE | 2021-07-02 03:09 | CT ---
EXAMINATION TYPE: CT brain cspine wo con DATE OF EXAM: 07/02/2021 COMPARISON: 03/30/2021 HISTORY: AMS CT DLP: 1415 mGycm Automated exposure control for dose reduction was used. Ventricles have normal size. There is mild cerebral atrophy. There is no mass effect nor midline shif t. There is no sign of intracranial hemorrhage. The calvarium is intact. Cervical vertebra have normal alignment. Disc spaces are fairly normal. There is no compression fract ure. Posterior elements are intact. Prevertebral soft tissues are intact. C7 vertebral body not entir shahla included on the exam. IMPRESSION: Cerebral mild atrophy. No acute intracranial abnormality. Negative CT scan of the cervical spine. No change compared to old exam.
[2021-07-02 09:33] VITALS: BP 110/67; PULSE 85; RESP 16
== END 2021-07-02 09:38 | disposition home or self-care (01) ==
LOC: EC 00:40
DX: F10.129 Alcohol abuse with intoxication, unspecified (principal); F17.200 Nicotine dependence, unspecified, uncomplicated
CPT/HCPCS: 70450; 72125; 96372; 99285

== ENCOUNTER 2021-07-23 21:55 | Emergency (ER) | payer OTHER ==
--- NOTE | 2021-07-24 00:19 | ED ---
General Adult HPI - General Source: patient, EMS Mode of arrival: EMS Limitations: altered mental status <Gwendolyn Palmer - Last Filed: 07/24/21 00:18> <Geoffrey Macario - Last Filed: 07/24/21 09:21> - General Chief complaint: Alcohol Stated complaint: ETOH Time Seen by Provider: 07/23/21 22:15 - History of Present Illness Initial comments: 55-year-old male patient found on the side of the road intoxicated presents to the emergency department for increased anxiety. States he does have suicidal ideation. He does not have an active plan at this time. Patient is requesting to see a psychiatric nurse. Patient does admit to drinking alcohol today. Denies any street drugs. Denies any current injuries or physical concerns. He is homeless. (Gwendolyn Palmer) - Related Data Home Medications Medication Instructions Recorded Confirmed No Known Home Medications 06/16/21 07/23/21 Allergies Allergy/AdvReac Type Severity Reaction Status Date / Time No Known Allergies Allergy Verified 07/23/21 22:57 Review of Systems ROS Other: All systems not noted in ROS Statement are negative. <Gwendolyn Palmer - Last Filed: 07/24/21 00:18> ROS Other: All systems not noted in ROS Statement are negative. <Geoffrey Macario - Last Filed: 07/24/21 09:21> ROS Statement: Those systems with pertinent positive or pertinent negative responses have been documented in the HPI. Past Medical History Past Medical History: No Reported History Additional Past Medical History / Comment(s): etoh History of Any Multi-Drug Resistant Organisms: None Reported Past Surgical History: Hernia Repair Past Anesthesia/Blood Transfusion Reactions: No Reported Reaction Past Psychological History: No Psychological Hx Reported Smoking Status: Current every day smoker Past Alcohol Use History: Abuse, Daily, Heavy Past Drug Use History: None Reported - Past Family History Family Family Medical History: No Reported History <Gwendolyn Palmer - Last Filed: 07/24/21 00:18> General Exam Limitations: altered mental status General appearance: alert, in no apparent distress, appears intoxicated ENT exam: Present: normal exam, normal oropharynx, mucous membranes moist Respiratory exam: Present: normal lung sounds bilaterally. Absent: respiratory distress, wheezes, rales, rhonchi, stridor Cardiovascular Exam: Present: regular rate, normal rhythm, normal heart sounds. Absent: systolic murmur, diastolic murmur, rubs, gallop, clicks GI/Abdominal exam: Present: soft, normal bowel sounds. Absent: distended, tenderness, guarding, rebound, rigid Neurological exam: Present: alert, oriented X3, CN II-XII intact Psychiatric exam: Present: normal affect, normal mood Skin exam: Present: warm, dry, intact, normal color. Absent: rash <Gwendolyn Palmer - Last Filed: 07/24/21 00:18> Course Vital Signs 07/23/21 22:01 Temperature 97.4 F L Pulse Rate 84 Respiratory 17 Rate O2 Sat by Pulse 96 Oximetry Medical Decision Making <Gwendolyn Palmer - Last Filed: 07/24/21 00:18> <Geoffrey Macario - Last Filed: 07/24/21 09:21> - Medical Decision Making 55-year-old male patient presents to the emergency department intoxicated. Reporting suicidal ideation. He will be sober at 0500. Care is handed over to my attending Dr. Hassan to manage until disposition. (Gwendolyn Palmer) 55-year-old male who had presented with alcohol intoxication, suicidal ideation. He was at evaluated awaiting sobriety and when sober was seen by emergency 6 services. Patient currently depressed but not suicidal. They're recommending outpatient follow-up and discharge at this time. Patient does not want inpatient evaluation or treatment. He is given referral to community mental health. (Geoffrey Macario) - Lab Data Lab Results 07/24/21 Range/Units 01:59 Urine Opiates Screen Not Detected (NotDetected) Ur Oxycodone Screen Not Detected (NotDetected) Urine Methadone Screen Not Detected (NotDetected) Ur Propoxyphene Screen Not Detected (NotDetected) Ur Barbiturates Screen Not Detected (NotDetected) U Tricyclic Antidepress Not Detected (NotDetected) Ur Phencyclidine Scrn Not Detected (NotDetected) Ur Amphetamines Screen Not Detected (NotDetected) U Methamphetamines Scrn Not Detected (NotDetected) U Benzodiazepines Scrn Not Detected (NotDetected) Urine Cocaine Screen Not Detected (NotDetected) U Marijuana (THC) Screen Not Detected (NotDetected) Disposition <Gwendolyn Palmer M - Last Filed: 07/24/21 00:18> Is patient prescribed a controlled substance at d/c from ED?: No Time of Disposition: 09:20 <Geoffrey Macario - Last Filed: 07/24/21 09:21> Clinical Impression: Alcoholic intoxication, Depression Disposition: HOME SELF-CARE Condition: Fair Instructions (If sedation given, give patient instructions): Alcohol Intoxication (ED), Depression (ED) Additional Instructions: Please follow up with community mental health. Please return with worsening or changing symptoms. Referrals: None,Stated [Primary Care Provider] - 1-2 days Hood Mattson [STAFF PHYSICIAN] - 1-2 days
[2021-07-24 02:35] LABS: Amphetamine Screen,Urine Not Detected (NotDetected); Barbiturate Screen,Urine Not Detected (NotDetected); Benzodiazepines Screen,Urine Not Detected (NotDetected); Cocaine Screen,Urine Not Detected (NotDetected); Methadone Screen, Urine Not Detected (NotDetected); Opiate Screen,Urine Not Detected (NotDetected); Oxycodone Screen, Urine Not Detected (NotDetected); Phencyclidine Screen,Urine Not Detected (NotDetected); Tricyclic Antidepressant,Urine Not Detected (NotDetected); Urn Cannabinoid Scrn Not Detected (NotDetected)
[2021-07-24 09:40] VITALS: BP 134/69; PULSE 79; RESP 18; TEMP 98.2
== END 2021-07-24 09:40 | disposition home or self-care (01) ==
LOC: EC 21:55
DX: R41.82 Altered mental status, unspecified (principal); R45.851 Suicidal ideations; F10.129 Alcohol abuse with intoxication, unspecified; F32.A Depression, unspecified; F17.200 Nicotine dependence, unspecified, uncomplicated
CPT/HCPCS: 80306; 82075; 99285

== ENCOUNTER 2021-08-21 17:06 | Inpatient (IN) | payer OTHER ==
[2021-08-21] MEDS ORDERED: LORazepam 2 MG/ML INJ IV STA (17:26)
[2021-08-21] MEDS ORDERED: LORazepam 2 MG/ML INJ IV PRN ×3 (17:27)
[2021-08-21] MEDS ORDERED: THIAMINE 100 MG/ML 2 ML VIAL IM STA (17:27)
--- NOTE | 2021-08-21 17:52 | ED ---
General Adult HPI - General Stated complaint: ETOH Time Seen by Provider: 08/21/21 17:09 Source: patient, EMS, RN notes reviewed Limitations: altered mental status - History of Present Illness Initial comments: 55-year-old male brought in by paramedics and local law enforcement for alcohol intoxication. Patient is not cooperative. His breath alcohol is greater than 200. He was not noted to have any injury by EMS. Patient is known to have issues with alcohol abuse. History is not available from the patient secondary to intoxication. - Related Data Home Medications Medication Instructions Recorded Confirmed No Known Home Medications 06/16/21 08/21/21 Allergies Allergy/AdvReac Type Severity Reaction Status Date / Time No Known Allergies Allergy Verified 08/21/21 17:35 Review of Systems ROS Statement: Those systems with pertinent positive or pertinent negative responses have been documented in the HPI. ROS Other: All systems not noted in ROS Statement are negative. Past Medical History Past Medical History: No Reported History Additional Past Medical History / Comment(s): etoh History of Any Multi-Drug Resistant Organisms: None Reported Past Surgical History: Hernia Repair Past Anesthesia/Blood Transfusion Reactions: No Reported Reaction Past Psychological History: No Psychological Hx Reported Smoking Status: Current every day smoker Past Alcohol Use History: Abuse, Daily, Heavy Past Drug Use History: None Reported - Past Family History Family Family Medical History: No Reported History General Exam General appearance: alert, appears intoxicated Head exam: Present: atraumatic, normocephalic Eye exam: Present: normal appearance, PERRL Neck exam: Present: normal inspection. Absent: tenderness, meningismus Respiratory exam: Present: normal lung sounds bilaterally. Absent: respiratory distress, wheezes Cardiovascular Exam: Present: regular rate, normal rhythm GI/Abdominal exam: Present: soft. Absent: distended, tenderness, guarding Extremities exam: Present: normal inspection, normal capillary refill. Absent: pedal edema Neurological exam: Present: alert, CN II-XII intact. Absent: motor sensory deficit Psychiatric exam: Present: agitated, anxious Skin exam: Present: warm, dry, intact. Absent: cyanosis, diaphoretic Course Vital Signs 08/21/21 17:10 Pulse Rate 88 Respiratory 22 Rate Blood Pressure 136/87 O2 Sat by Pulse 95 Oximetry Medical Decision Making - Medical Decision Making 55 -year-old male presenting with alcohol intoxication. Blood alcohol is 377. Patient will require observation for acute alcohol poisoning and intoxication. - Lab Data Result diagrams: 08/21/21 17:30 08/21/21 17:30 Lab Results 08/21/21 08/21/21 Range/Units 17:30 17:30 WBC 11.2 H (3.8-10.6) k/uL RBC 5.38 (4.30-5.90) m/uL Hgb 18.7 H (13.0-17.5) gm/dL Hct 56.5 H (39.0-53.0) % MCV 105.0 H (80.0-100.0) fL MCH 34.7 (25.0-35.0) pg MCHC 33.1 (31.0-37.0) g/dL RDW 12.5 (11.5-15.5) % Plt Count 287 D (150-450) k/uL MPV 8.1 Neutrophils % 69 % Lymphocytes % 17 % Monocytes % 9 % Eosinophils % 1 % Basophils % 2 % Neutrophils # 7.7 (1.3-7.7) k/uL Lymphocytes # 1.9 (1.0-4.8) k/uL Monocytes # 1.0 (0-1.0) k/uL Eosinophils # 0.1 (0-0.7) k/uL Basophils # 0.2 (0-0.2) k/uL Macrocytosis Slight Sodium 142 (137-145) mmol/L Potassium 5.1 (3.5-5.1) mmol/L Chloride 106 (98-107) mmol/L Carbon Dioxide 21 L (22-30) mmol/L Anion Gap 15 mmol/L BUN 9 (9-20) mg/dL Creatinine 0.58 L (0.66-1.25) mg/dL Est GFR (CKD-EPI)AfAm >90 (>60 ml/min/1.73 sqM) Est GFR (CKD-EPI)NonAf >90 (>60 ml/min/1.73 sqM) Glucose 92 (74-99) mg/dL Calcium 9.4 (8.4-10.2) mg/dL Magnesium 2.3 (1.6-2.3) mg/dL Total Bilirubin 0.6 (0.2-1.3) mg/dL AST 41 (17-59) U/L ALT 17 (4-49) U/L Alkaline Phosphatase 128 H (38-126) U/L Total Protein 7.6 (6.3-8.2) g/dL Albumin 4.1 (3.5-5.0) g/dL Serum Alcohol 377 H* mg/dL Disposition Clinical Impression: Alcoholic intoxication Disposition: ADMITTED IP TO THIS HOSP Condition: Stable Is patient prescribed a controlled substance at d/c from ED?: No Referrals: None,Stated [Primary Care Provider] - 1-2 days Decision to Admit Reason: Admit from EC Decision Date: 08/21/21 Decision Time: 19:11
[2021-08-21 18:24] LABS: ALT 17 U/L (4-49); AST 41 U/L (17-59); African American GFR (CKD) >90 (>60 ml/min/1.73 sqM); Albumin 4.1 g/dL (3.5-5.0); Alkaline Phosphatase 128 U/L (38-126); Anion Gap 15 mmol/L; Blood Urea Nitrogen 9 mg/dL (9-20); Calcium 9.4 mg/dL (8.4-10.2); Carbon Dioxide 21 mmol/L (22-30); Chloride 106 mmol/L (98-107); Glucose 92 mg/dL (74-99); Magnesium 2.3 mg/dL (1.6-2.3); Non-African American GFR(CKD) >90 (>60 ml/min/1.73 sqM); Potassium 5.1 mmol/L (3.5-5.1); Sodium 142 mmol/L (137-145); Total Bilirubin 0.6 mg/dL (0.2-1.3); Total Protein 7.6 g/dL (6.3-8.2)
[2021-08-21 18:35] LABS: Alcohol 377 mg/dL
[2021-08-21 18:38] LABS: Basophils # (A) 0.2 k/uL (0-0.2); Basophils % (A) 2 %; Eosinophils # (A) 0.1 k/uL (0-0.7); Eosinophils % (A) 1 %; HGB 18.7 gm/dL (13.0-17.5); Lymphocytes # (A) 1.9 k/uL (1.0-4.8); Lymphocytes % (A) 17 %; MCH 34.7 pg (25.0-35.0); MCHC 33.1 g/dL (31.0-37.0); Macrocytosis Slight; Mean Platelet Volume 8.1; Monocytes % (A) 9 %; Neutrophils # (A) 7.7 k/uL (1.3-7.7); Neutrophils % (A) 69 %; RBC 5.38 m/uL (4.30-5.90); RDW 12.5 % (11.5-15.5); WBC 11.2 k/uL (3.8-10.6)
[2021-08-21 18:40] LABS: HCT 56.5 % (39.0-53.0)
[2021-08-21 18:41] LABS: Platelet Count 287 k/uL (150-450)
[2021-08-21] MEDS ORDERED: NALOXONE 0.4 MG/ML 1 ML VIAL IV PRN (19:06)
[2021-08-21] MEDS ORDERED: SODIUM CHLORIDE 0.9% 1,000 ML IV SCH (19:15)
--- NOTE | 2021-08-21 19:40 | P.HPIM ---
History of Present Illness 55-year-old male with known history of alcohol abuse and withdrawals and intoxication admitted to the hospital with upper intoxication and being agitated with a high alcohol level Patient is currently sleepy unable to give any history patient received Ativan here in the ER Review of systems unable to get due to the current condition of the patient Constitutional: Sleepy Eyes: Anicteric sclerae, moist conjunctiva, no lid-lag PERRLA ENMT: NC/AT Oropharynx clear, no erythema, exudates Neck: Supple, FROM, no masses, or JVD No carotid bruits No thyromegaly Lungs: Clear to auscultation Clear to percussion Normal respiratory effort, no accessory muscle use Cardiovascular: Heart regular in rate and rhythm, No murmurs, gallops, or rubs No peripheral edema Abdominal: Soft Nontender, no guarding, rebound or rigidity Abdomen moving with respiration Normoactive bowel sounds No hepatomegaly, No splenomegaly No palpable mass No abdominal wall hernia noted Skin: Normal temperature, tone, texture, turgor No induration No subcutaneous nodules No rash, lesions No ulcers Extremities: No digital cyanosis No clubbing Pedal pulses intact and symmetrical Radial pulses intact and symmetrical Normal gait and station No calf tenderness Psychiatric:Alert and oriented to person, place and time Appropriate affect Intact judgement Neuro: Generalized weakness Assessment and plan INTOXICATION MONITOR CLOSELY FOR WITHDRAWAL Agitation likely due to alcohol intoxication . per history this is not unusual for the patient with intoxication Observe overnight Monitor electrolytes Past Medical History Past Medical History: No Reported History Additional Past Medical History / Comment(s): etoh History of Any Multi-Drug Resistant Organisms: None Reported Past Surgical History: Hernia Repair Past Anesthesia/Blood Transfusion Reactions: No Reported Reaction Past Psychological History: No Psychological Hx Reported Smoking Status: Current every day smoker Past Alcohol Use History: Abuse, Daily, Heavy Past Drug Use History: None Reported - Past Family History Family Family Medical History: No Reported History Medications and Allergies Home Medications Medication Instructions Recorded Confirmed Type No Known Home Medications 06/16/21 08/21/21 History Allergies Allergy/AdvReac Type Severity Reaction Status Date / Time No Known Allergies Allergy Verified 08/21/21 17:35 Physical Exam Vitals: Vital Signs Pulse Resp BP Pulse Ox 08/21/21 17:10 88 22 136/87 95 Intake and Output 08/21/21 08/21/21 08/21/21 06:59 14:59 22:59 Other: Weight 65.771 kg Results CBC & Chem 7: 08/21/21 17:30 08/21/21 17:30 Labs: Abnormal Lab Results - Last 24 Hours (Table) 08/21/21 08/21/21 Range/Units 17:30 17:30 WBC 11.2 H (3.8-10.6) k/uL Hgb 18.7 H (13.0-17.5) gm/dL Hct 56.5 H (39.0-53.0) % MCV 105.0 H (80.0-100.0) fL Carbon Dioxide 21 L (22-30) mmol/L Creatinine 0.58 L (0.66-1.25) mg/dL Alkaline Phosphatase 128 H (38-126) U/L Serum Alcohol 377 H* mg/dL
--- NOTE | 2021-08-21 21:53 | ED ---
Medical Decision Making - Lab Data Result diagrams: 08/21/21 17:30 08/21/21 17:30 Lab Results 08/21/21 08/21/21 Range/Units 17:30 17:30 WBC 11.2 H (3.8-10.6) k/uL RBC 5.38 (4.30-5.90) m/uL Hgb 18.7 H (13.0-17.5) gm/dL Hct 56.5 H (39.0-53.0) % MCV 105.0 H (80.0-100.0) fL MCH 34.7 (25.0-35.0) pg MCHC 33.1 (31.0-37.0) g/dL RDW 12.5 (11.5-15.5) % Plt Count 287 D (150-450) k/uL MPV 8.1 Neutrophils % 69 % Lymphocytes % 17 % Monocytes % 9 % Eosinophils % 1 % Basophils % 2 % Neutrophils # 7.7 (1.3-7.7) k/uL Lymphocytes # 1.9 (1.0-4.8) k/uL Monocytes # 1.0 (0-1.0) k/uL Eosinophils # 0.1 (0-0.7) k/uL Basophils # 0.2 (0-0.2) k/uL Macrocytosis Slight Sodium 142 (137-145) mmol/L Potassium 5.1 (3.5-5.1) mmol/L Chloride 106 (98-107) mmol/L Carbon Dioxide 21 L (22-30) mmol/L Anion Gap 15 mmol/L BUN 9 (9-20) mg/dL Creatinine 0.58 L (0.66-1.25) mg/dL Est GFR (CKD-EPI)AfAm >90 (>60 ml/min/1.73 sqM) Est GFR (CKD-EPI)NonAf >90 (>60 ml/min/1.73 sqM) Glucose 92 (74-99) mg/dL Calcium 9.4 (8.4-10.2) mg/dL Magnesium 2.3 (1.6-2.3) mg/dL Total Bilirubin 0.6 (0.2-1.3) mg/dL AST 41 (17-59) U/L ALT 17 (4-49) U/L Alkaline Phosphatase 128 H (38-126) U/L Total Protein 7.6 (6.3-8.2) g/dL Albumin 4.1 (3.5-5.0) g/dL Serum Alcohol 377 H* mg/dL Disposition Clinical Impression: Alcoholic intoxication Disposition: ADMITTED IP TO THIS [facility] Condition: Stable Procedures - Restraint - Face to Face Restraint Occurrence 1 Patient's Immediate Situation: Endangers self safety, Endangers staff safety, Violent behavior Patient's Reaction to the Intervention: Uncooperative, Angry, Hostile, Belligerent, Anxious Patient's Medical & Behavioral Condition: Awake, Alert Need to Continue or Terminate Restraint or Seclusion: Continue Face to Face Eval of Restraint Date: 08/21/21 Face to Face Eval of Restraint Time: 17:25 Restraint Occurrence 2 Patient's Immediate Situation: Endangers self safety, Endangers staff safety Patient's Reaction to the Intervention: Uncooperative, Hostile, Belligerent Patient's Medical & Behavioral Condition: Awake, Alert Need to Continue or Terminate Restraint or Seclusion: Continue Face to Face Eval of Restraint Date: 08/21/21 Face to Face Eval of Restraint Time: 21:25
[2021-08-22] MEDS ORDERED: THIAMINE 100 MG TAB PO SCH (07:30)
[2021-08-22 07:45] VITALS: BP 150/84; PULSE 99; RESP 17; TEMP 99.3
--- NOTE | 2021-08-22 09:55 | P.DS ---
Providers Date of admission: 08/21/21 19:07 Attending physician: Gisselle Hayden MD Primary care physician: Stated None Hospital Course: 55-year-old male with known history of alcohol abuse and withdrawals in the past, was admitted to the hospital with intoxication, very high ETOH level at 377. He was very lethargic and agitated upon admission. Now he is ok, alert and awake. Resources on ETOH abuse and homelessness will be provided. He will be discharged in a stable condition. Patient Condition at Discharge: Stable Plan - Discharge Summary Discharge Rx Participant: Yes New Discharge Prescriptions: No Action No Known Home Medications Discharge Medication List No Known Home Medications 06/16/21 [History] Follow up Appointment(s)/Referral(s): None,Stated [Primary Care Provider] - 1-2 days Patient Instructions/Handouts: Seizure/Epilepsy Discharge Instructions & Fol low-Up
[2021-08-22 10:24] LABS: Basophils # (A) 0.15 X 10*3/uL (0.00-0.10); Eosinophils # (A) 0.14 X 10*3/uL (0.04-0.35); Eosinophils % (A) 1.9 %; HCT 47.5 % (39.6-50.0); Lymphocytes # (A) 0.95 X 10*3/uL (0.90-5.00); Lymphocytes % (A) 12.9 %; MCH 34.3 pg (27.0-32.0); MCHC 33.7 g/dL (32.0-37.0); MCV 101.9 fL (80.0-97.0); Mean Platelet Volume 9.7 fL (9.5-12.2); Monocytes % (A) 8.2 %; Neutrophils # (A) 5.47 X 10*3/uL (1.80-7.70); Neutrophils % (A) 74.6 %; Platelet Count 281 X 10*3/uL (140-440); RBC 4.66 X 10*6/uL (4.40-5.60); RDW 13.5 % (11.5-14.5); WBC 7.34 X 10*3/uL (4.50-10.00)
[2021-08-22 11:07] LABS: African American GFR (CKD) 124.4 (60.0-200.0); Albumin 3.2 g/dL (3.8-4.9); Albumin/Globulin Ratio 1.36 (1.60-3.17); Anion Gap 18.8 mmol/L (10.00-18.00); BUN/Creat Ratio 13.44 Ratio (12.00-20.00); Blood Urea Nitrogen 9.3 mg/dL (9.0-27.0); Calcium 8.6 mg/dL (8.7-10.3); Carbon Dioxide 17.2 mmol/L (20.0-27.5); Globulin 2.4 g/dL (1.6-3.3); Non-African American GFR(CKD) 107.4 (60.0-200.0); Potassium 4.1 mmol/L (3.5-5.5); Total Bilirubin 0.3 mg/dL (0.30-1.20); Total Protein 5.6 g/dL (6.2-8.2)
== END 2021-08-22 13:02 | disposition home or self-care (01) | DRG 897 ==
LOC: EC 17:06 → 4SSUR 19:07
PROVIDERS: ADMIT Internal Medicine; ATTEND Internal Medicine
DX: F10.129 Alcohol abuse with intoxication, unspecified (principal); F10.139 Alcohol abuse with withdrawal, unspecified; Y90.8 Blood alcohol level of 240 mg/100 ml or more; Z59.00 Homelessness unspecified; F17.210 Nicotine dependence, cigarettes, uncomplicated; F91.8 Other conduct disorders; Z20.822 Contact with and (suspected) exposure to COVID-19; Z87.19 Personal history of other diseases of the digestive system
CPT/HCPCS: 36415; 80053; 80320; 83735; 85025; 87635; 96372; 96374; 99285

== ENCOUNTER 2021-08-23 11:43 | Observation (INO) | payer OTHER ==
--- NOTE | 2021-08-23 12:24 | ED ---
General Adult HPI - General Chief complaint: Alcohol Stated complaint: ETOH Time Seen by Provider: 08/23/21 11:45 Source: patient, EMS Mode of arrival: ambulatory Limitations: no limitations - History of Present Illness Initial comments: Dictation was produced using [employer] dictation software. please excuse any grammatical, word or spelling errors. Chief Complaint: 55-year-old male brought to the emergency department for alcohol intoxication History of Present Illness: 55-year-old male he has extensive history of ER visitations for EtOH intoxication. She was brought in by EMS after being found unresponsive an inebriated on the sidewalk. There was surrounding alcohol bottles next to him. Patient has extensive history of EtOH intoxication. EMS reports that patient was at [facility] last night for EtOH intoxication. He was discharged and found earlier today found drunk again. Patient unable to provide history of present illness. The ROS documented in this emergency department record has been reviewed and confirmed by me. Those systems with pertinent positive or negative responses have been documented in the HPI. All other systems are other negative and/or noncontributory. PHYSICAL EXAM: General Impression: Arousable to voice and painful stimuli, not acute distress, smells of EtOH, inebriated HEENT: Normocephalic atraumatic, extra-ocular movements intact, pupils equal and reactive to light bilaterally, mucous membranes moist. Cardiovascular: Heart regular rate and rhythm Chest: no retractions, no tachypnea Abdomen: abdomen soft, non-tender, non-distended, no organomegaly Musculoskeletal: Pulses present and equal in all extremities, no peripheral edema Motor: no focal deficits noted Neurological: no focal motor or sensory deficits noted Skin: Intact with no visualized rashes ED course: 55-year-old alcoholic male presents to the emergency department for EtOH intoxication. He was found down. Vital signs upon arrival are within acceptable limits. Physical examination does not show any traumatic findings Laboratory evaluation obtained. CBC, coag panel is unremarkable. Metabolic panel is within acceptable limits. Serum alcohol is 298. Computed tomography scan of brain is unremarkable for any traumatic injuries. Alcohol intoxication and clinical presentation with the patient admitted to observation for sobriety. - Related Data Home Medications Medication Instructions Recorded Confirmed No Known Home Medications 06/16/21 08/23/21 Allergies Allergy/AdvReac Type Severity Reaction Status Date / Time No Known Allergies Allergy Verified 08/23/21 13:16 Review of Systems ROS Statement: Those systems with pertinent positive or pertinent negative responses have been documented in the HPI. ROS Other: All systems not noted in ROS Statement are negative. Past Medical History Past Medical History: No Reported History Additional Past Medical History / Comment(s): etoh History of Any Multi-Drug Resistant Organisms: None Reported Past Surgical History: Hernia Repair Past Anesthesia/Blood Transfusion Reactions: No Reported Reaction Past Psychological History: No Psychological Hx Reported Smoking Status: Current every day smoker Past Alcohol Use History: Abuse, Daily, Heavy Past Drug Use History: None Reported - Past Family History Family Family Medical History: No Reported History General Exam Limitations: no limitations Course Vital Signs 08/23/21 08/23/21 11:57 12:21 Temperature 97.6 F Pulse Rate 75 Respiratory 18 16 Rate Blood Pressure 130/84 O2 Sat by Pulse 95 Oximetry Medical Decision Making - Lab Data Result diagrams: 08/23/21 12:17 08/23/21 12:17 Lab Results 08/23/21 08/23/21 08/23/21 Range/Units 12:17 12:17 12:17 WBC 10.2 (3.8-10.6) k/uL RBC 4.84 (4.30-5.90) m/uL Hgb 16.6 (13.0-17.5) gm/dL Hct 50.2 (39.0-53.0) % MCV 103.7 H (80.0-100.0) fL MCH 34.3 (25.0-35.0) pg MCHC 33.0 (31.0-37.0) g/dL RDW 12.5 (11.5-15.5) % Plt Count 265 (150-450) k/uL MPV 7.3 Neutrophils % 77 % Lymphocytes % 11 % Monocytes % 9 % Eosinophils % 1 % Basophils % 1 % Neutrophils # 7.8 H (1.3-7.7) k/uL Lymphocytes # 1.1 (1.0-4.8) k/uL Monocytes # 0.9 (0-1.0) k/uL Eosinophils # 0.1 (0-0.7) k/uL Basophils # 0.1 (0-0.2) k/uL Macrocytosis Slight PT 10.3 (9.0-12.0) sec INR 1.0 (<1.2) APTT 24.8 (22.0-30.0) sec Sodium 141 (137-145) mmol/L Potassium 4.6 (3.5-5.1) mmol/L Chloride 110 H (98-107) mmol/L Carbon Dioxide 20 L (22-30) mmol/L Anion Gap 11 mmol/L BUN 7 L (9-20) mg/dL Creatinine 0.57 L (0.66-1.25) mg/dL Est GFR (CKD-EPI)AfAm >90 (>60 ml/min/1.73 sqM) Est GFR (CKD-EPI)NonAf >90 (>60 ml/min/1.73 sqM) Glucose 98 (74-99) mg/dL Plasma Lactic Acid Adis (0.7-2.0) mmol/L Calcium 9.3 (8.4-10.2) mg/dL Magnesium 2.2 (1.6-2.3) mg/dL Total Bilirubin 0.7 (0.2-1.3) mg/dL AST 49 (17-59) U/L ALT 19 (4-49) U/L Alkaline Phosphatase 106 (38-126) U/L Total Protein 6.8 (6.3-8.2) g/dL Albumin 3.5 (3.5-5.0) g/dL Lipase 71 (23-300) U/L Serum Alcohol 298 H* mg/dL 08/23/21 Range/Units 12:17 WBC (3.8-10.6) k/uL RBC (4.30-5.90) m/uL Hgb (13.0-17.5) gm/dL Hct (39.0-53.0) % MCV (80.0-100.0) fL MCH (25.0-35.0) pg MCHC (31.0-37.0) g/dL RDW (11.5-15.5) % Plt Count (150-450) k/uL MPV Neutrophils % % Lymphocytes % % Monocytes % % Eosinophils % % Basophils % % Neutrophils # (1.3-7.7) k/uL Lymphocytes # (1.0-4.8) k/uL Monocytes # (0-1.0) k/uL Eosinophils # (0-0.7) k/uL Basophils # (0-0.2) k/uL Macrocytosis PT (9.0-12.0) sec INR (<1.2) APTT (22.0-30.0) sec Sodium (137-145) mmol/L Potassium (3.5-5.1) mmol/L Chloride (98-107) mmol/L Carbon Dioxide (22-30) mmol/L Anion Gap mmol/L BUN (9-20) mg/dL Creatinine (0.66-1.25) mg/dL Est GFR (CKD-EPI)AfAm (>60 ml/min/1.73 sqM) Est GFR (CKD-EPI)NonAf (>60 ml/min/1.73 sqM) Glucose (74-99) mg/dL Plasma Lactic Acid Adis 2.6 H* (0.7-2.0) mmol/L Calcium (8.4-10.2) mg/dL Magnesium (1.6-2.3) mg/dL Total Bilirubin (0.2-1.3) mg/dL AST (17-59) U/L ALT (4-49) U/L Alkaline Phosphatase (38-126) U/L Total Protein (6.3-8.2) g/dL Albumin (3.5-5.0) g/dL Lipase (23-300) U/L Serum Alcohol mg/dL Disposition Clinical Impression: Alcohol intoxication Disposition: ADMITTED IP TO THIS HOSP Condition: Fair Referrals: None,Stated [Primary Care Provider] - 1-2 days
[2021-08-23 12:38] LABS: Basophils # (A) 0.1 k/uL (0-0.2); Basophils % (A) 1 %; Eosinophils # (A) 0.1 k/uL (0-0.7); Eosinophils % (A) 1 %; HCT 50.2 % (39.0-53.0); HGB 16.6 gm/dL (13.0-17.5); Lymphocytes # (A) 1.1 k/uL (1.0-4.8); Lymphocytes % (A) 11 %; MCH 34.3 pg (25.0-35.0); MCV 103.7 fL (80.0-100.0); Macrocytosis Slight; Mean Platelet Volume 7.3; Monocytes # (A) 0.9 k/uL (0-1.0); Monocytes % (A) 9 %; Neutrophils # (A) 7.8 k/uL (1.3-7.7); Neutrophils % (A) 77 %; Platelet Count 265 k/uL (150-450); RBC 4.84 m/uL (4.30-5.90); RDW 12.5 % (11.5-15.5); WBC 10.2 k/uL (3.8-10.6)
[2021-08-23 12:48] LABS: ALT 19 U/L (4-49); African American GFR (CKD) >90 (>60 ml/min/1.73 sqM); Albumin 3.5 g/dL (3.5-5.0); Anion Gap 11 mmol/L; Blood Urea Nitrogen 7 mg/dL (9-20); Calcium 9.3 mg/dL (8.4-10.2); Carbon Dioxide 20 mmol/L (22-30); Chloride 110 mmol/L (98-107); Glucose 98 mg/dL (74-99); Lipase 71 U/L (23-300); Non-African American GFR(CKD) >90 (>60 ml/min/1.73 sqM); Sodium 141 mmol/L (137-145); Total Bilirubin 0.7 mg/dL (0.2-1.3); Total Protein 6.8 g/dL (6.3-8.2)
[2021-08-23 12:50] LABS: AST 49 U/L (17-59); Alcohol 298 mg/dL; Alkaline Phosphatase 106 U/L (38-126); Magnesium 2.2 mg/dL (1.6-2.3); Potassium 4.6 mmol/L (3.5-5.1)
[2021-08-23 12:54] LABS: Partial Thromboplastin Time 24.8 sec (22.0-30.0); Prothrombin Time 10.3 sec (9.0-12.0)
--- NOTE | 2021-08-23 13:12 | CT ---
EXAMINATION TYPE: CT brain wo con DATE OF EXAM: 08/23/2021 HISTORY: ETOH. Altered mental status and confusion. Syncope. CT DLP: 1110 mGycm. Automated Exposure Control for Dose Reduction was Utilized. TECHNIQUE: CT scan of the head is performed without contrast. COMPARISON: CT brain July 02, 2021. FINDINGS: There is no acute intracranial hemorrhage or midline shift identified. There is mild to m oderate diffuse ventricular and sulcal prominence consistent with diffuse age-related cerebral atroph y. There is mild low-attenuation in the periventricular white matter consistent with chronic small v essel ischemic change. Old fracture deformity medial wall left orbit redemonstrated. Old displaced fr actures of the nasal bones again seen. Paranasal sinuses remain clear. The calvarium is intact. Pers istent anterior metopic suture incidentally noted. IMPRESSION: No acute intracranial hemorrhage or midline shift. There is mild to moderate diffuse ce rebral atrophy and mild chronic small vessel ischemic change redemonstrated. No significant change f rom prior CT.
[2021-08-23] MEDS ORDERED: NALOXONE 0.4 MG/ML 1 ML VIAL IV PRN ×2 (13:21→17:02)
[2021-08-23] MEDS ORDERED: SODIUM CHLORIDE 0.9% 1,000 ML IV SCH (13:30)
--- NOTE | 2021-08-23 17:00 | P.HPIM ---
History of Present Illness H&P Date: 08/23/21 Chief Complaint: etoh abuse 55-year-old male with known history of alcohol abuse and intoxication with many past ER visits, who was just recently discharged from the hospital for alcohol intoxication, came back to the ER after being found unresponsive on the sidewalk. There was surrounding alcohol bottles next to him. EMS reports that patient was at [facility] last night for EtOH intoxication. He was discharged and found earlier today found drunk again. Patient unable to provide history now. Review of Systems Review of systems unable to get due to the current condition of the patient Past Medical History Past Medical History: No Reported History Additional Past Medical History / Comment(s): etoh History of Any Multi-Drug Resistant Organisms: None Reported Past Surgical History: Hernia Repair Past Anesthesia/Blood Transfusion Reactions: No Reported Reaction Past Psychological History: No Psychological Hx Reported Smoking Status: Current every day smoker Past Alcohol Use History: Abuse, Daily, Heavy Past Drug Use History: None Reported - Past Family History Family Family Medical History: No Reported History Medications and Allergies Home Medications Medication Instructions Recorded Confirmed Type No Known Home Medications 06/16/21 08/23/21 History Allergies Allergy/AdvReac Type Severity Reaction Status Date / Time No Known Allergies Allergy Verified 08/23/21 16:25 Physical Exam Vitals: Vital Signs Temp Pulse Pulse Resp BP BP Pulse Ox 08/23/21 15:00 97.5 F L 82 16 123/75 96 08/23/21 12:21 16 08/23/21 11:57 97.6 F 75 18 130/84 95 Intake and Output 08/23/21 08/23/21 08/23/21 06:59 14:59 22:59 Intake Total 100 Balance 100 Intake: Oral 100 Other: Weight 68.039 kg Constitutional: No acute distress Eyes:Anicteric sclerae, moist conjunctiva, no lid-lag, PERRLA, ENMT: Oropharynx clear, no erythema, exudates Neck: Supple, FROM, no masses, or JVD, No carotid bruits, No thyromegaly Lungs: Clear to auscultation, Clear to percussion, Normal respiratory effort, no accessory muscle use Cardiovascular: Heart regular in rate and rhythm, No murmurs, gallops, or rubs, No peripheral edema Abdominal: Soft, Nontender, no guarding, rebound or rigidity, Normoactive bowel sounds, No hepatomegaly, No splenomegaly, No palpable mass Skin: Normal temperature, tone, texture, turgor, no induration, No subcutaneous nodules, No rash, lesions, No ulcers Extremities: No digital cyanosis, No clubbing, Pedal pulses intact and symmetrical, Radial pulses intact and symmetrical, No calf tenderness Neuro: Obtunded Results CBC & Chem 7: 08/23/21 12:17 08/23/21 12:17 Labs: Abnormal Lab Results - Last 24 Hours (Table) 08/23/21 08/23/21 08/23/21 Range/Units 12:17 12:17 12:17 MCV 103.7 H (80.0-100.0) fL Neutrophils # 7.8 H (1.3-7.7) k/uL Chloride 110 H (98-107) mmol/L Carbon Dioxide 20 L (22-30) mmol/L BUN 7 L (9-20) mg/dL Creatinine 0.57 L (0.66-1.25) mg/dL Plasma Lactic Acid Adis 2.6 H* (0.7-2.0) mmol/L Serum Alcohol 298 H* mg/dL 08/23/21 Range/Units 15:38 MCV (80.0-100.0) fL Neutrophils # (1.3-7.7) k/uL Chloride (98-107) mmol/L Carbon Dioxide (22-30) mmol/L BUN (9-20) mg/dL Creatinine (0.66-1.25) mg/dL Plasma Lactic Acid Adis 2.2 H* (0.7-2.0) mmol/L Serum Alcohol mg/dL Assessment and Plan Plan: ETOH INTOXICATION MONITOR CLOSELY FOR WITHDRAWAL Observe overnight Monitor electrolytes Homeless SW consult
[2021-08-23 20:11] VITALS: BP 134/77; PULSE 90; RESP 18; TEMP 98
--- NOTE | 2021-08-23 21:59 | P.DS ---
Providers Date of admission: 08/23/21 13:23 Expected date of discharge: 08/23/21 Attending physician: Abdoul Padilla MD Primary care physician: Stated None Hospital Course: Discharge Diagnosis: Patient Left AMA ETOH intoxication Hospital Course: Patient is a 55-year-old male with history of alcohol abuse and intoxication with multiple ER visits was discharged from our hospital on 08/22 after acute alcohol intoxication. He again reports presented on 08/23 after being unresponsive on the sidewalk with multiple alcohol bottles near him. Per EMS report he was also at [facility] last night for alcohol intoxication and discharged. He was admitted again for EtOH intoxication. He became sober and wanted to leave AMA. Notifed of Patient wanting to leave AMA via perfect serve by nursing at 924 pm when I arrived to the floor at 935 pm Patient had already left. He did signs AMA papers and per nursing was A and O X 3 with clear thought process and was calm and collected. I was unable to personally speak with the patient prior to him leaving. A total of 10 minutes of time were spent preparing this complex discharge summary . Patient Condition at Discharge: Fair Plan - Discharge Summary New Discharge Prescriptions: No Action No Known Home Medications Discharge Medication List No Known Home Medications 06/16/21 [History] Follow up Appointment(s)/Referral(s): None,Stated [Primary Care Provider] - 1-2 days
== END 2021-08-23 21:43 | disposition left against medical advice (07) ==
LOC: EC 11:43 → 6NMEDSUR 13:23
PROVIDERS: ADMIT Internal Medicine; ATTEND Internal Medicine
DX: F10.129 Alcohol abuse with intoxication, unspecified (principal); Y90.8 Blood alcohol level of 240 mg/100 ml or more; F17.200 Nicotine dependence, unspecified, uncomplicated; G31.9 Degenerative disease of nervous system, unspecified; Z20.822 Contact with and (suspected) exposure to COVID-19; Z53.29 Procedure and treatment not carried out because of patient's decision for other reasons; Z59.00 Homelessness unspecified
CPT/HCPCS: 99285; 36415; 80053; 83605; 83690; 83735; 85025; 85610; 85730; 87635; 70450; G0378; G0480; 80320

== ENCOUNTER 2021-09-09 23:44 | Emergency (ER) | payer OTHER ==
[2021-09-09 23:59] VITALS: TEMP 97.5
--- NOTE | 2021-09-10 04:18 | ED ---
Psych HPI - General Source: patient, RN notes reviewed, old records reviewed Mode of arrival: ambulatory Limitations: altered mental status - History of Present Illness MD Complaint: feels depressed, altered mental status, other (A call intoxication) -: unknown Associated Psychiatric Symptoms: depression History of same: Yes Quality: constant Improves With: none Worsens With: alcohol Context: recent alcohol abuse Associated Symptoms: denies other symptoms Treatments Prior to Arrival: placed on mental health hold If Self Harm: admits thoughts of self harm <Emory Andrew - Last Filed: 09/10/21 06:12> <Geoffrey Macario - Last Filed: 09/10/21 11:47> - General Chief Complaint: Psychiatric Symptoms Stated Complaint: Mental health Time Seen by Provider: 09/10/21 03:39 - History of Present Illness Initial Comments: This is a 55-year-old male presenting with significant intoxication patient denying for psychiatric evaluation. Patient is known well-known to this emergency department, is homeless. Patient refusing to be sent home. Patient is petition for psychiatric evaluation by police department (Emory Andrew) - Related Data Home Medications Medication Instructions Recorded Confirmed No Known Home Medications 06/16/21 09/10/21 Allergies Allergy/AdvReac Type Severity Reaction Status Date / Time No Known Allergies Allergy Verified 09/10/21 09:24 Review of Systems ROS Other: All systems not noted in ROS Statement are negative. <Emory Andrew - Last Filed: 09/10/21 06:12> ROS Other: All systems not noted in ROS Statement are negative. <Geoffrey Macario - Last Filed: 09/10/21 11:47> ROS Statement: Those systems with pertinent positive or pertinent negative responses have been documented in the HPI. Past Medical History Past Medical History: No Reported History Additional Past Medical History / Comment(s): etoh History of Any Multi-Drug Resistant Organisms: None Reported Past Surgical History: Hernia Repair Past Anesthesia/Blood Transfusion Reactions: No Reported Reaction Past Psychological History: No Psychological Hx Reported Smoking Status: Current every day smoker Past Alcohol Use History: Abuse, Daily, Heavy Past Drug Use History: None Reported - Past Family History Family Family Medical History: No Reported History <Emory Andrew - Last Filed: 09/10/21 06:12> General Exam Limitations: no limitations General appearance: alert, in no apparent distress Head exam: Present: atraumatic, normocephalic, normal inspection Eye exam: Present: normal appearance, PERRL, EOMI. Absent: scleral icterus, conjunctival injection, periorbital swelling ENT exam: Present: normal exam, mucous membranes moist Neck exam: Present: normal inspection. Absent: tenderness, meningismus, lymphadenopathy Respiratory exam: Present: normal lung sounds bilaterally. Absent: respiratory distress, wheezes, rales, rhonchi, stridor Cardiovascular Exam: Present: regular rate, normal rhythm, normal heart sounds. Absent: systolic murmur, diastolic murmur, rubs, gallop, clicks GI/Abdominal exam: Present: soft, normal bowel sounds. Absent: distended, tenderness, guarding, rebound, rigid Extremities exam: Present: normal inspection, full ROM, normal capillary refill. Absent: tenderness, pedal edema, joint swelling, calf tenderness Back exam: Present: normal inspection Neurological exam: Present: alert, oriented X3, CN II-XII intact Psychiatric exam: Present: normal affect, normal mood Skin exam: Present: warm, dry, intact, normal color. Absent: rash <Emory Andrew - Last Filed: 09/10/21 06:12> Course <Emory Andrew - Last Filed: 09/10/21 06:12> Vital Signs 09/09/21 09/10/21 09/10/21 23:54 05:51 10:00 Temperature 97.5 F L Pulse Rate 67 106 H Respiratory 20 20 19 Rate Blood Pressure 126/86 122/77 O2 Sat by Pulse 100 97 Oximetry - Reevaluation(s) Reevaluation #1: 09/10/21 06:12 Medical record is reviewed (Emory Andrew) Medical Decision Making <Geoffrey Macario - Last Filed: 09/10/21 11:47> - Medical Decision Making 55-year-old male who had presented for alcohol intoxication and psychiatric complaints including depression and suicidal ideation. Patient was observed in the emergency department until he was sober. He was evaluated by EPS. He is no longer voicing any suicidal thoughts. He did contract to safety. He is discharged with outpatient follow-up. (Geoffrey Macario) Disposition <Emory Andrew - Last Filed: 09/10/21 06:12> Is patient prescribed a controlled substance at d/c from ED?: No Time of Disposition: 11:47 <Geoffrey Macario - Last Filed: 09/10/21 11:47> Clinical Impression: Depression, Alcoholic intoxication Disposition: HOME SELF-CARE Condition: Fair Instructions (If sedation given, give patient instructions): Alcohol Intoxication (ED), Depression (ED) Additional Instructions: Please follow up with community mental health. Referrals: None,Stated [Primary Care Provider] - 1-2 days Guevara Sargent MD [REFERRING] - 1-2 days
[2021-09-10 05:54] VITALS: BP 122/77; PULSE 106
[2021-09-10 10:50] VITALS: RESP 19
== END 2021-09-10 12:07 | disposition home or self-care (01) ==
LOC: EC 23:44
DX: F32.A Depression, unspecified (principal); F10.129 Alcohol abuse with intoxication, unspecified; F17.200 Nicotine dependence, unspecified, uncomplicated
CPT/HCPCS: 99284

== ENCOUNTER 2021-09-18 17:17 | Emergency (ER) | payer OTHER ==
[2021-09-18] MEDS ORDERED: PROPARACAINE 0.5% OPHTH DROPS 15 ML BTL LEFT EYE STA (19:16)
[2021-09-18] MEDS ORDERED: FLUORESCEIN STRIPS 1 MG STRIP LEFT EYE ONE (19:16)
--- NOTE | 2021-09-18 19:42 | ED ---
General Adult HPI - General Chief complaint: Skin/Abscess/Foreign Body Stated complaint: lt eye swelling/irritation Time Seen by Provider: 09/18/21 19:16 Source: patient Mode of arrival: ambulatory Limitations: no limitations - History of Present Illness Initial comments: 55-year-old male with a past medical history of chronic alcoholism presents to the emergency room for left sided facial swelling. Patient states he woke up this morning with pain and numbness on the left side of the face. States his eye is swollen shut. States it is painful. Patient denies any injuries. Denies fevers.Patient has no other complaints at this time including shortness of breath, chest pain, abdominal pain, nausea or vomiting, headache, or visual changes. - Related Data Previous Rx's Medication Instructions Recorded Acyclovir [Zovirax] 800 mg PO DIRECTED 7 Days #35 09/18/21 tab Amoxicillin/Potassium Clav 1 tab PO Q8H 10 Days #21 tab 09/18/21 [Augmentin 500-125 Tablet] Clindamycin HCl 300 mg PO TID 7 Days #21 cap 09/18/21 Allergies Allergy/AdvReac Type Severity Reaction Status Date / Time No Known Allergies Allergy Verified 09/18/21 21:43 Review of Systems ROS Statement: Those systems with pertinent positive or pertinent negative responses have been documented in the HPI. ROS Other: All systems not noted in ROS Statement are negative. Past Medical History Past Medical History: No Reported History Additional Past Medical History / Comment(s): etoh History of Any Multi-Drug Resistant Organisms: None Reported Past Surgical History: Hernia Repair Past Anesthesia/Blood Transfusion Reactions: No Reported Reaction Past Psychological History: No Psychological Hx Reported Smoking Status: Current every day smoker Past Alcohol Use History: Abuse, Daily, Heavy Past Drug Use History: None Reported - Past Family History Family Family Medical History: No Reported History General Exam Limitations: no limitations General appearance: alert, in no apparent distress Head exam: Present: atraumatic Eye exam: Present: PERRL, EOMI, conjunctival injection (Minimal erythema of the left conjunctiva. Slight purulent discharge noted.), periorbital swelling (Nontender edema noted of the left periorbital area), other (pt has erythema with small vesicles noted in the V1 trigeminal distribution of the left side of the face not crossing the midline). Absent: scleral icterus Expanded Visual acuity (R) = 20/: 50 Visual acuity (L) = 20/: 50 With correction: No ENT exam: Present: normal exam, mucous membranes moist Neck exam: Present: normal inspection, full ROM. Absent: tenderness Respiratory exam: Present: normal lung sounds bilaterally. Absent: respiratory distress, wheezes Cardiovascular Exam: Present: regular rate, normal rhythm, normal heart sounds Course Vital Signs 09/18/21 09/18/21 17:55 21:33 Temperature 98.1 F 99.3 F Pulse Rate 87 95 Respiratory 20 14 Rate Blood Pressure 145/89 130/74 O2 Sat by Pulse 100 99 Oximetry Medical Decision Making - Medical Decision Making Vitals are stable. HPI and physical exam as documented. Patient does have a rash consistent with shingles noted in the V1 trigeminal distribution of the left side of the face. He does have some mild periorbital edema noted of the left eye. The eye was stained with fluorescein stain and visualize with Wood's lamp, I do not appreciate any dendritic lesions at this time. However case was discussed with Dr. Berger. He did recommend a CAT scan of the orbits which showed a preseptal cellulitis potentially. Recommends treating with augmentin 500mg TID and acyclovir 800 mg 5times per day. Recommends against steriods. He will see the patient in his office tomorrow and will be there from 8 AM to 1 PM. Patient states he will be able to get there and does have transportation. Patient will return here for any worsening symptoms. I discussed this case with attending Dr. Gil who also evaluated patient and agrees with this assessment and treatment plan. - Lab Data Result diagrams: 09/18/21 21:20 09/18/21 21:20 Lab Results 09/18/21 09/18/21 Range/Units 21:20 21:20 WBC 5.9 (3.8-10.6) k/uL RBC 4.80 (4.30-5.90) m/uL Hgb 16.5 (13.0-17.5) gm/dL Hct 49.1 (39.0-53.0) % MCV 102.4 H (80.0-100.0) fL MCH 34.3 (25.0-35.0) pg MCHC 33.5 (31.0-37.0) g/dL RDW 12.8 (11.5-15.5) % Plt Count 184 (150-450) k/uL MPV 7.3 Neutrophils % 76 % Lymphocytes % 8 % Monocytes % 10 % Eosinophils % 3 % Basophils % 1 % Neutrophils # 4.5 (1.3-7.7) k/uL Lymphocytes # 0.5 L (1.0-4.8) k/uL Monocytes # 0.6 (0-1.0) k/uL Eosinophils # 0.2 (0-0.7) k/uL Basophils # 0.1 (0-0.2) k/uL Macrocytosis Slight Sodium 135 L (137-145) mmol/L Potassium 4.2 (3.5-5.1) mmol/L Chloride 106 (98-107) mmol/L Carbon Dioxide 22 (22-30) mmol/L Anion Gap 7 mmol/L BUN 4 L (9-20) mg/dL Creatinine 0.56 L (0.66-1.25) mg/dL Est GFR (CKD-EPI)AfAm >90 (>60 ml/min/1.73 sqM) Est GFR (CKD-EPI)NonAf >90 (>60 ml/min/1.73 sqM) Glucose 118 H (74-99) mg/dL Calcium 8.9 (8.4-10.2) mg/dL Total Bilirubin 0.5 (0.2-1.3) mg/dL AST 34 (17-59) U/L ALT 18 (4-49) U/L Alkaline Phosphatase 124 (38-126) U/L Total Protein 6.7 (6.3-8.2) g/dL Albumin 3.5 (3.5-5.0) g/dL Disposition Clinical Impression: Herpes zoster ophthalmicus of left eye, Shingles Disposition: HOME SELF-CARE Condition: Good Instructions (If sedation given, give patient instructions): Shingles (ED) Additional Instructions: Please call Dr. Riddle office first thing in the morning. He wants to see you tomorrow. He will be in the office from 8 AM to 1 PM. It is imperative you see him tomorrow. you will also need to take the medications as directed. This is very important. Return to the emergency room for any worsening symptoms. Prescriptions: Amoxicillin/Potassium Clav [Augmentin 500-125 Tablet] 1 tab PO Q8H 10 Days #21 tab Clindamycin HCl 300 mg PO TID 7 Days #21 cap Acyclovir [Zovirax] 800 mg PO DIRECTED 7 Days #35 tab Is patient prescribed a controlled substance at d/c from ED?: No Referrals: Antoinette Berger MD [STAFF PHYSICIAN] - 1-2 days Time of Disposition: 23:15
[2021-09-18] MEDS ORDERED: SODIUM CHLORIDE 0.9% 1,000 ML IV STA (20:43)
[2021-09-18] MEDS ORDERED: cefTRIAXone IN SWFI 1,000 MG/10 ML SYRINGE IVP STA (20:51)
[2021-09-18] MEDS ORDERED: ACYCLOVIR 800 MG TAB PO STA (20:51)
[2021-09-18 21:33] LABS: Basophils # (A) 0.1 k/uL (0-0.2); Basophils % (A) 1 %; Eosinophils # (A) 0.2 k/uL (0-0.7); Eosinophils % (A) 3 %; HCT 49.1 % (39.0-53.0); HGB 16.5 gm/dL (13.0-17.5); Lymphocytes # (A) 0.5 k/uL (1.0-4.8); Lymphocytes % (A) 8 %; MCH 34.3 pg (25.0-35.0); MCHC 33.5 g/dL (31.0-37.0); MCV 102.4 fL (80.0-100.0); Macrocytosis Slight; Mean Platelet Volume 7.3; Monocytes # (A) 0.6 k/uL (0-1.0); Monocytes % (A) 10 %; Neutrophils # (A) 4.5 k/uL (1.3-7.7); Neutrophils % (A) 76 %; Platelet Count 184 k/uL (150-450); RDW 12.8 % (11.5-15.5); WBC 5.9 k/uL (3.8-10.6)
[2021-09-18 21:36] VITALS: BP 130/74; PULSE 95; RESP 14; TEMP 99.3
[2021-09-18] MEDS ORDERED: MORPHINE SULFATE 4 MG/ML SYRINGE IVP STA (21:42)
[2021-09-18 21:49] LABS: ALT 18 U/L (4-49); AST 34 U/L (17-59); African American GFR (CKD) >90 (>60 ml/min/1.73 sqM); Albumin 3.5 g/dL (3.5-5.0); Alkaline Phosphatase 124 U/L (38-126); Anion Gap 7 mmol/L; Blood Urea Nitrogen 4 mg/dL (9-20); Calcium 8.9 mg/dL (8.4-10.2); Carbon Dioxide 22 mmol/L (22-30); Chloride 106 mmol/L (98-107); Glucose 118 mg/dL (74-99); Non-African American GFR(CKD) >90 (>60 ml/min/1.73 sqM); Potassium 4.2 mmol/L (3.5-5.1); Sodium 135 mmol/L (137-145); Total Bilirubin 0.5 mg/dL (0.2-1.3); Total Protein 6.7 g/dL (6.3-8.2)
--- NOTE | 2021-09-18 23:03 | CT ---
EXAMINATION TYPE: CT orbits w con DATE OF EXAM: 09/18/2021 COMPARISON: 08/23/2021 HISTORY: Shingles, swelling in LT eye. R/o abscess. CT DLP: 323.8 mGycm Automated exposure control for dose reduction was used. CONTRAST: Performed with IV Contrast, patient injected with 100 mL of Isovue 300. Images obtained from the bottom of the maxilla to the top of the frontal sinuses with IV contrast. There is fairly normal aeration of the maxillary sinuses. Nasal bones deviated to the right side cons istent with a fracture not changed compared to the old exam. There is left-sided periorbital preseptal soft tissue swelling. There is no evidence of retro-orbital mass. The globes are symmetric. There is soft tissue swelling over the left frontal bone. The ethmoi d and frontal sinuses appear fairly normal. I see no bony destructive process. There is normal aerati on of the mastoid sinuses. The external auditory canals appear normal. There is no significant pathol ogic enhancement. IMPRESSION: Preseptal soft tissue swelling in the left periorbital region consistent with cellulitis. No drainabl e fluid collection. No evidence of retro-orbital mass.
== END 2021-09-18 23:41 | disposition home or self-care (01) ==
LOC: EC 17:17
DX: B02.30 Zoster ocular disease, unspecified (principal); F17.200 Nicotine dependence, unspecified, uncomplicated
CPT/HCPCS: 36415; 80053; 85025; 70481; 99284; 96374; 96375; 96361; J2270; J0696; Q9967

== ENCOUNTER 2021-10-05 16:28 | Emergency (ER) | payer OTHER ==
[2021-10-05] MEDS ORDERED: LORazepam 2 MG/ML INJ IM STA (16:42)
--- NOTE | 2021-10-05 16:45 | ED ---
General Adult HPI - General Chief complaint: Alcohol Stated complaint: ETOH Time Seen by Provider: 10/05/21 16:38 Source: EMS Mode of arrival: EMS Limitations: altered mental status - History of Present Illness Initial comments: 55 year-old male patient presenting with police for mental health evaluation. Patient is intoxicated. States he is brought in for alcohol intoxication. He is well known to our department. [employer] officers are filling out a petition. Patient does not respond when asked if he is suicidal or homicidal. He is agitated and swearing at staff and police. Denies any current injuries or illness. - Related Data Home Medications Medication Instructions Recorded Confirmed No Known Home Medications 10/05/21 10/05/21 Allergies Allergy/AdvReac Type Severity Reaction Status Date / Time No Known Allergies Allergy Verified 10/05/21 18:40 Review of Systems ROS Statement: Those systems with pertinent positive or pertinent negative responses have been documented in the HPI. ROS Other: All systems not noted in ROS Statement are negative. Past Medical History Past Medical History: No Reported History Additional Past Medical History / Comment(s): etoh History of Any Multi-Drug Resistant Organisms: None Reported Past Surgical History: Hernia Repair Past Anesthesia/Blood Transfusion Reactions: No Reported Reaction Past Psychological History: No Psychological Hx Reported Smoking Status: Current every day smoker Past Alcohol Use History: Abuse, Daily, Heavy Past Drug Use History: None Reported - Past Family History Family Family Medical History: No Reported History General Exam Limitations: altered mental status General appearance: alert, in no apparent distress, appears intoxicated ENT exam: Present: normal exam, normal oropharynx Respiratory exam: Present: normal lung sounds bilaterally. Absent: respiratory distress, wheezes, rales, rhonchi, stridor Cardiovascular Exam: Present: regular rate, normal rhythm, normal heart sounds. Absent: systolic murmur, diastolic murmur, rubs, gallop, clicks GI/Abdominal exam: Present: soft, normal bowel sounds. Absent: distended, tenderness, guarding, rebound, rigid Neurological exam: Present: alert, oriented X3, CN II-XII intact Psychiatric exam: Present: agitated, other (intoxicated) Skin exam: Present: warm, dry, intact, normal color. Absent: rash Course Vital Signs 10/05/21 10/05/21 16:29 21:00 Pulse Rate 99 98 Respiratory 18 16 Rate Blood Pressure 168/131 116/81 O2 Sat by Pulse 97 96 Oximetry Medical Decision Making - Medical Decision Making 55 year-old male patient presents to the emergency department for mental health evaluation. He is petitioned by the police after being found intoxicated in public. Physical exam is unremarkable. Patient was seen and evaluated by [facility] after becoming sober. It was determined he would benefit from outpatient mental health services does not meet criteria for admission. We discharged him follow-up with his primary care physician. Patient's agree with this plan. My attending is Dr. Price. - Lab Data Lab Results 10/05/21 Range/Units 16:54 Urine Opiates Screen Not Detected (NotDetected) Ur Oxycodone Screen Not Detected (NotDetected) Urine Methadone Screen Not Detected (NotDetected) Ur Propoxyphene Screen Not Detected (NotDetected) Ur Barbiturates Screen Not Detected (NotDetected) U Tricyclic Antidepress Not Detected (NotDetected) Ur Phencyclidine Scrn Not Detected (NotDetected) Ur Amphetamines Screen Not Detected (NotDetected) U Methamphetamines Scrn Not Detected (NotDetected) U Benzodiazepines Scrn Not Detected (NotDetected) Urine Cocaine Screen Not Detected (NotDetected) U Marijuana (THC) Screen Detected H (NotDetected) Disposition Clinical Impression: Alcohol intoxication Disposition: HOME SELF-CARE Condition: Good Instructions (If sedation given, give patient instructions): Alcohol Intoxication (ED) Additional Instructions: Follow-up with your primary care physician for recheck as soon as possible. Follow-up with outpatient mental health services. Return for any new, worsening, or concerning symptoms. Is patient prescribed a controlled substance at d/c from ED?: No Referrals: None,Stated [Primary Care Provider] - 1-2 days Time of Disposition: 01:57
[2021-10-05 17:27] LABS: Amphetamine Screen,Urine Not Detected (NotDetected); Barbiturate Screen,Urine Not Detected (NotDetected); Benzodiazepines Screen,Urine Not Detected (NotDetected); Cocaine Screen,Urine Not Detected (NotDetected); Methadone Screen, Urine Not Detected (NotDetected); Opiate Screen,Urine Not Detected (NotDetected); Oxycodone Screen, Urine Not Detected (NotDetected); Phencyclidine Screen,Urine Not Detected (NotDetected); Tricyclic Antidepressant,Urine Not Detected (NotDetected); Urn Cannabinoid Scrn Detected (NotDetected)
[2021-10-06 02:34] VITALS: BP 124/86; PULSE 96; RESP 18
== END 2021-10-06 02:37 | disposition home or self-care (01) ==
LOC: EC 16:28
DX: F17.200 Nicotine dependence, unspecified, uncomplicated (principal); F10.129 Alcohol abuse with intoxication, unspecified
CPT/HCPCS: 82075; 80306; 99285; 96372; J2060

== ENCOUNTER 2021-10-08 18:02 | Emergency (ER) | payer OTHER ==
[2021-10-08 18:13] VITALS: RESP 18; TEMP 97.5
--- NOTE | 2021-10-08 18:15 | ED ---
Alcohol HPI - General Stated Complaint: ETOH Time Seen by Provider: 10/08/21 18:08 Source: EMS, RN notes reviewed Mode of arrival: EMS Limitations: altered mental status - History of Present Illness Initial Comments: This is a undomiciled 55-year-old male who presents to the emergency department after being picked up by police at a local [facility] [place]. Patient really has no complaints. Patient admits to daily alcohol intake.. Patient denies any suicidality or homicidality. Patient denies any chest pain or shortness of breath. No headache. No change in vision or hearing. No imbalance. Patient states he did not fall. Denies any tremors, no hallucinations, no agitation, no nausea or vomiting, no change in bowel when she urination. No fever or chills. - Related Data Home Medications Medication Instructions Recorded Confirmed No Known Home Medications 10/05/21 10/05/21 Allergies Allergy/AdvReac Type Severity Reaction Status Date / Time No Known Allergies Allergy Verified 10/05/21 18:40 Review of Systems ROS Statement: Those systems with pertinent positive or pertinent negative responses have been documented in the HPI. ROS Other: All systems not noted in ROS Statement are negative. Past Medical History Past Medical History: No Reported History Additional Past Medical History / Comment(s): etoh History of Any Multi-Drug Resistant Organisms: None Reported Past Surgical History: Hernia Repair Past Anesthesia/Blood Transfusion Reactions: No Reported Reaction Past Psychological History: No Psychological Hx Reported Smoking Status: Current every day smoker Past Alcohol Use History: Abuse, Daily, Heavy Past Drug Use History: None Reported - Past Family History Family Family Medical History: No Reported History General Exam - General Exam Comments Initial Comments: Somewhat disheveled-appearing 55-year-old male in no acute distress. Patient ab le to give an adequate history. No slurred speech. Alert and oriented 4. Cranial nerves II through XII intact. No evidence of trauma. Limitations: no limitations, altered mental status General appearance: alert, in no apparent distress Head exam: Present: atraumatic, normocephalic, normal inspection Eye exam: Present: normal appearance, PERRL, EOMI. Absent: scleral icterus, conjunctival injection, periorbital swelling ENT exam: Present: normal exam, mucous membranes moist Neck exam: Present: normal inspection. Absent: tenderness, meningismus, lymphadenopathy Respiratory exam: Present: normal lung sounds bilaterally. Absent: respiratory distress, wheezes, rales, rhonchi, stridor Cardiovascular Exam: Present: regular rate, normal rhythm, normal heart sounds. Absent: systolic murmur, diastolic murmur, rubs, gallop, clicks GI/Abdominal exam: Present: soft, normal bowel sounds. Absent: distended, tenderness, guarding, rebound, rigid Extremities exam: Present: normal inspection, full ROM, normal capillary refill. Absent: tenderness, pedal edema, joint swelling, calf tenderness Back exam: Present: normal inspection Neurological exam: Present: alert, oriented X3, CN II-XII intact Psychiatric exam: Present: normal affect, normal mood Skin exam: Present: warm, dry, intact, normal color. Absent: rash Course Vital Signs 10/08/21 10/08/21 18:09 20:07 Temperature 97.5 F L Pulse Rate 89 94 Respiratory 18 Rate Blood Pressure 126/85 112/70 O2 Sat by Pulse 96 98 Oximetry - Reevaluation(s) Reevaluation #1: 10/08/21 20:15 Medical record is reviewed Symptoms symptom-free Patient is informed of results and questions answered Patient in no distress Medical Decision Making - Medical Decision Making The case was discussed in detail with ED attending physician. Presentation, findings, treatment plan discussed in detail. Patient was reevaluated prior to discharge and is doing well. Patient has no complaints. Patient able ambulate. Has steady gait. No slurred speech. Alert and oriented 4. Cranial nerves II through XII intact. Patient not clinically drunk. Patient was told to return to the ER for any signs or symptoms worsen. Told to return immediately if any other problems arise. All questions answered. Treatment plan discussed. Patient in agreement Disposition Clinical Impression: Alcohol abuse, Homeless Disposition: HOME SELF-CARE Condition: Good Instructions (If sedation given, give patient instructions): Abuse of Alcohol (ED) Additional Instructions: Follow-up with your regular physician as directed. Return to the ER immediately if any symptoms worsen, new symptoms arise, or any other problems develop. Is patient prescribed a controlled substance at d/c from ED?: No Referrals: Hood Mattson [STAFF PHYSICIAN] - 1-2 days Time of Disposition: 20:16
[2021-10-08] MEDS: THIAMINE 100 MG TAB PO SCH ×2 (18:44→18:45)
[2021-10-08 20:08] VITALS: BP 112/70; PULSE 94
== END 2021-10-08 20:51 | disposition home or self-care (01) ==
LOC: EC 18:02
DX: F10.10 Alcohol abuse, uncomplicated (principal); F17.200 Nicotine dependence, unspecified, uncomplicated; Z59.00 Homelessness unspecified
CPT/HCPCS: 99284

== ENCOUNTER 2021-10-24 17:01 | Observation (INO) | payer OTHER ==
--- NOTE | 2021-10-24 17:37 | ED ---
General Adult HPI - General Chief complaint: Psychiatric Symptoms Stated complaint: Mental health eval. Time Seen by Provider: 10/24/21 17:06 Source: police, EMS, RN notes reviewed Mode of arrival: EMS Limitations: no limitations - History of Present Illness Initial comments: 55-year-old male with a known history of alcoholism who is brought in by police and EMS today because of intoxication he was noted to have in his possession approximately half filled fifth of whiskey. No trauma reported no fevers chills nausea vomiting sweats patient also denies any suicidal thoughts or ideation. He was apparently somewhat hostile to providers at the time - Related Data Home Medications Medication Instructions Recorded Confirmed No Known Home Medications 10/05/21 10/24/21 Allergies Allergy/AdvReac Type Severity Reaction Status Date / Time No Known Allergies Allergy Verified 10/24/21 19:02 Review of Systems ROS Statement: Those systems with pertinent positive or pertinent negative responses have been documented in the HPI. ROS Other: All systems not noted in ROS Statement are negative. Past Medical History Past Medical History: No Reported History Additional Past Medical History / Comment(s): etoh History of Any Multi-Drug Resistant Organisms: None Reported Past Surgical History: Hernia Repair Past Anesthesia/Blood Transfusion Reactions: No Reported Reaction Past Psychological History: No Psychological Hx Reported Smoking Status: Current every day smoker Past Alcohol Use History: Abuse, Daily, Heavy Past Drug Use History: None Reported - Past Family History Family Family Medical History: No Reported History General Exam - General Exam Comments Initial Comments: Is a well-developed well-nourished awake alert no somewhat lethargic male he does have the smell of alcohol conjoiners on his breath Limitations: no limitations General appearance: alert, lethargic Head exam: Present: atraumatic, normocephalic, normal inspection Eye exam: Present: normal appearance, PERRL, EOMI. Absent: scleral icterus, conjunctival injection, periorbital swelling ENT exam: Present: mucous membranes dry Neck exam: Present: normal inspection, full ROM, other (Review of your bruits). Absent: tenderness, meningismus, lymphadenopathy Respiratory exam: Present: normal lung sounds bilaterally. Absent: respiratory distress, wheezes, rales, rhonchi, stridor Cardiovascular Exam: Present: regular rate, normal rhythm, normal heart sounds. Absent: systolic murmur, diastolic murmur, rubs, gallop, clicks GI/Abdominal exam: Present: soft, normal bowel sounds. Absent: distended, tenderness, guarding, rebound, rigid Extremities exam: Present: normal inspection, full ROM, normal capillary refill. Absent: tenderness, pedal edema, joint swelling, calf tenderness Back exam: Present: normal inspection Neurological exam: Present: alert, oriented X3, CN II-XII intact Psychiatric exam: Present: flat affect, other (Patient does demonstrate some aggressive behavior). Absent: suicidal ideation Skin exam: Present: warm, dry, intact, normal color. Absent: rash Course Vital Signs 10/24/21 17:03 Temperature 98.0 F Pulse Rate 82 Respiratory 20 Rate Blood Pressure 138/93 O2 Sat by Pulse 97 Oximetry Medical Decision Making - Medical Decision Making Patient rested comfortably in the emergency department alcohol level is 345 did discuss the case with Herbert who is the [employer] for Dr. Juárez the patient be admitted - Lab Data Result diagrams: 10/24/21 17:39 10/24/21 17:39 Lab Results 10/24/21 10/24/21 10/24/21 Range/Units 17:39 17:39 17:39 WBC 9.7 (3.8-10.6) k/uL RBC 4.97 (4.30-5.90) m/uL Hgb 17.4 (13.0-17.5) gm/dL Hct 50.4 (39.0-53.0) % MCV 101.5 H (80.0-100.0) fL MCH 35.0 (25.0-35.0) pg MCHC 34.5 (31.0-37.0) g/dL RDW 13.0 (11.5-15.5) % Plt Count 292 (150-450) k/uL MPV 7.2 Neutrophils % 66 % Lymphocytes % 18 % Monocytes % 9 % Eosinophils % 2 % Basophils % 2 % Neutrophils # 6.4 (1.3-7.7) k/uL Lymphocytes # 1.8 (1.0-4.8) k/uL Monocytes # 0.9 (0-1.0) k/uL Eosinophils # 0.2 (0-0.7) k/uL Basophils # 0.2 (0-0.2) k/uL Sodium 139 (137-145) mmol/L Potassium 4.3 (3.5-5.1) mmol/L Chloride 109 H (98-107) mmol/L Carbon Dioxide 19 L (22-30) mmol/L Anion Gap 11 mmol/L BUN 5 L (9-20) mg/dL Creatinine 0.53 L (0.66-1.25) mg/dL Est GFR (CKD-EPI)AfAm >90 (>60 ml/min/1.73 sqM) Est GFR (CKD-EPI)NonAf >90 (>60 ml/min/1.73 sqM) Glucose 100 H (74-99) mg/dL Calcium 9.3 (8.4-10.2) mg/dL Magnesium 2.2 (1.6-2.3) mg/dL Total Bilirubin 0.5 (0.2-1.3) mg/dL AST 35 (17-59) U/L ALT 18 (4-49) U/L Alkaline Phosphatase 147 H (38-126) U/L Creatine Kinase 81 (55-170) U/L Total Protein 7.3 (6.3-8.2) g/dL Albumin 3.9 (3.5-5.0) g/dL Lipase 118 (23-300) U/L Urine Opiates Screen Not Detected (NotDetected) Ur Oxycodone Screen Not Detected (NotDetected) Urine Methadone Screen Not Detected (NotDetected) Ur Propoxyphene Screen Not Detected (NotDetected) Ur Barbiturates Screen Not Detected (NotDetected) U Tricyclic Antidepress Not Detected (NotDetected) Ur Phencyclidine Scrn Not Detected (NotDetected) Ur Amphetamines Screen Not Detected (NotDetected) U Methamphetamines Scrn Not Detected (NotDetected) U Benzodiazepines Scrn Not Detected (NotDetected) Urine Cocaine Screen Not Detected (NotDetected) U Marijuana (THC) Screen Detected H (NotDetected) Serum Alcohol 345 H* mg/dL Disposition Clinical Impression: Alcohol intoxication Disposition: ADMITTED IP TO THIS [facility] Condition: Fair Referrals: None,Stated [Primary Care Provider] - 1-2 days
[2021-10-24 18:00] LABS: Basophils # (A) 0.2 k/uL (0-0.2); Basophils % (A) 2 %; Eosinophils # (A) 0.2 k/uL (0-0.7); Eosinophils % (A) 2 %; HCT 50.4 % (39.0-53.0); HGB 17.4 gm/dL (13.0-17.5); Lymphocytes # (A) 1.8 k/uL (1.0-4.8); Lymphocytes % (A) 18 %; MCHC 34.5 g/dL (31.0-37.0); MCV 101.5 fL (80.0-100.0); Mean Platelet Volume 7.2; Monocytes # (A) 0.9 k/uL (0-1.0); Monocytes % (A) 9 %; Neutrophils # (A) 6.4 k/uL (1.3-7.7); Neutrophils % (A) 66 %; Platelet Count 292 k/uL (150-450); RBC 4.97 m/uL (4.30-5.90); WBC 9.7 k/uL (3.8-10.6)
[2021-10-24 18:11] LABS: Amphetamine Screen,Urine Not Detected (NotDetected); Barbiturate Screen,Urine Not Detected (NotDetected); Benzodiazepines Screen,Urine Not Detected (NotDetected); Cocaine Screen,Urine Not Detected (NotDetected); Methadone Screen, Urine Not Detected (NotDetected); Opiate Screen,Urine Not Detected (NotDetected); Oxycodone Screen, Urine Not Detected (NotDetected); Phencyclidine Screen,Urine Not Detected (NotDetected); Tricyclic Antidepressant,Urine Not Detected (NotDetected); Urn Cannabinoid Scrn Detected (NotDetected)
[2021-10-24 18:14] LABS: ALT 18 U/L (4-49); AST 35 U/L (17-59); African American GFR (CKD) >90 (>60 ml/min/1.73 sqM); Albumin 3.9 g/dL (3.5-5.0); Alkaline Phosphatase 147 U/L (38-126); Anion Gap 11 mmol/L; Blood Urea Nitrogen 5 mg/dL (9-20); Calcium 9.3 mg/dL (8.4-10.2); Carbon Dioxide 19 mmol/L (22-30); Chloride 109 mmol/L (98-107); Glucose 100 mg/dL (74-99); Lipase 118 U/L (23-300); Magnesium 2.2 mg/dL (1.6-2.3); Non-African American GFR(CKD) >90 (>60 ml/min/1.73 sqM); Potassium 4.3 mmol/L (3.5-5.1); Sodium 139 mmol/L (137-145); Total Bilirubin 0.5 mg/dL (0.2-1.3); Total Protein 7.3 g/dL (6.3-8.2)
[2021-10-24 18:24] LABS: Creatine Kinase 81 U/L (55-170)
[2021-10-24 18:30] LABS: Alcohol 345 mg/dL
[2021-10-24] MEDS ORDERED: NALOXONE 0.4 MG/ML 1 ML VIAL IV PRN (19:08)
[2021-10-24] MEDS ORDERED: THIAMINE 100 MG/ML 2 ML VIAL IM STA (19:09)
[2021-10-24] MEDS ORDERED: LORazepam 2 MG/ML INJ IV PRN ×3 (19:09)
[2021-10-24] MEDS: SODIUM CHLORIDE 0.9% 1,000 ML IV SCH (19:38)
[2021-10-25] MEDS ORDERED: THIAMINE 100 MG TAB PO SCH (07:30)
[2021-10-25] MEDS: SODIUM CHLORIDE 0.9% 1,000 ML IV SCH (11:03)
--- NOTE | 2021-10-25 12:58 | P.HPIM ---
History of Present Illness 55-year-old male came in because he is depressed. He denied any suicidal ideations. Patient evidently his home less. Patient drinks about 5 words tall boys, beer. As per the ER physician note he drinks 1/5 of whiskey. Patient de nied any fever chills nausea vomiting abdominal pain. Patient is awake and alert patient is admitted for all call intoxication. Patient is apparently home likes for which social work is evaluating the patient. Upon further questioning patient is not willing to quit alcohol patient wanted to be discharged. I counseled that the antidepressants will not help him if he doesn't quit alcohol. REVIEW OF SYSTEMS: CONSTITUTIONAL: No fever, no malaise, no fatigue. HEENT: No recent visual problems or hearing problems. Denied any sore throat. CARDIOVASCULAR: No chest pain, orthopnea, PND, no palpitations, no syncope. PULMONARY: No shortness of breath, no cough, no hemoptysis. GASTROINTESTINAL: No diarrhea, no nausea, no vomiting, no abdominal pain. NEUROLOGICAL: No headaches, no weakness, no numbness. HEMATOLOGICAL: Denies any bleeding or petechiae. GENITOURINARY: Denies any burning micturition, frequency, or urgency. MUSCULOSKELETAL/RHEUMATOLOGICAL: Denies any joint pain, swelling, or any muscle pain. ENDOCRINE: Denies any polyuria or polydipsia. The rest of the 14-point review of systems is negative. PHYSICAL EXAMINATION: GENERAL: The patient is alert and oriented x3, not in any acute distress. Well developed, well nourished. Patient does have some tremors HEENT: Pupils are round and equally reacting to light. EOMI. No scleral icterus. No conjunctival pallor. Normocephalic, atraumatic. No pharyngeal erythema. No thyromegaly. CARDIOVASCULAR: S1 and S2 present. No murmurs, rubs, or gallops. PULMONARY: Chest is clear to auscultation, no wheezing or crackles. ABDOMEN: Soft, nontender, nondistended, normoactive bowel sounds. No palpable organomegaly. MUSCULOSKELETAL: No joint swelling or deformity. EXTREMITIES: No cyanosis, clubbing, or pedal edema. NEUROLOGICAL: Gross neurological examination did not reveal any focal deficits. SKIN: No rashes. Assessment and plan -Alcohol intoxication patient is sober now -Alcohol withdrawal: Patient will be continued on CIWA protocol with Ativan until she is discharged, as patient is not willing to quit alcohol there is no benefit in treating his withdrawals as patient is willing to go back and drink alcohol in any way. can intake worker will evaluate the patient if he find placement for the patient patient will be discharged today. -Depression: Counseling regarding alcohol cessation was provided and patient will be given Zoloft although may not be effective she can use to drink alcohol Past Medical History Past Medical History: No Reported History Additional Past Medical History / Comment(s): etoh History of Any Multi-Drug Resistant Organisms: None Reported Past Surgical History: Hernia Repair Past Anesthesia/Blood Transfusion Reactions: No Reported Reaction Past Psychological History: No Psychological Hx Reported Smoking Status: Current every day smoker Past Alcohol Use History: Abuse, Daily, Heavy Past Drug Use History: None Reported - Past Family History Family Family Medical History: No Reported History Medications and Allergies Home Medications Medication Instructions Recorded Confirmed Type Sertraline [Zoloft] 50 mg PO DAILY #30 tab 10/25/21 Rx Thiamine [Vitamin B-1] 100 mg PO DAILY #30 tablet 10/25/21 Rx Allergies Allergy/AdvReac Type Severity Reaction Status Date / Time No Known Allergies Allergy Verified 10/24/21 19:02 Physical Exam Vitals: Vital Signs Temp Pulse Pulse Resp BP BP Pulse Ox 10/25/21 07:00 97.8 F 86 17 152/86 96 10/25/21 05:00 86 16 137/84 96 10/25/21 00:54 98 18 132/71 98 10/24/21 19:40 95 18 118/70 97 10/24/21 17:03 98.0 F 82 20 138/93 97 Intake and Output 10/24/21 10/25/21 10/25/21 22:59 06:59 14:59 Intake Total 118 Balance 118 Intake: Oral 118 Other: Voiding Method Toilet Weight 72.575 kg 72.575 kg Results CBC & Chem 7: 10/24/21 17:39 10/24/21 17:39 Labs: Abnormal Lab Results - Last 24 Hours (Table) 10/24/21 10/24/21 10/24/21 Range/Units 17:39 17:39 17:39 MCV 101.5 H (80.0-100.0) fL Chloride 109 H (98-107) mmol/L Carbon Dioxide 19 L (22-30) mmol/L BUN 5 L (9-20) mg/dL Creatinine 0.53 L (0.66-1.25) mg/dL Glucose 100 H (74-99) mg/dL Alkaline Phosphatase 147 H (38-126) U/L U Marijuana (THC) Screen Detected H (NotDetected) Serum Alcohol 345 H* mg/dL Thrombosis Risk Factor Assmnt - Choose All That Apply Each Factor Represents 1 point: Age 41-60 years Other congenital or acquired thrombophilia - If yes, enter type in comment: No Thrombosis Risk Factor Assessment Total Risk Factor Score: 1 Thrombosis Risk Factor Assessment Level: Low Risk
--- NOTE | 2021-10-25 12:59 | P.DS ---
Providers Date of admission: 10/24/21 19:08 Attending physician: Radha Juárez Primary care physician: Stated None Hospital Course: As mentioned in HPI Patient Condition at Discharge: Fair Plan - Discharge Summary New Discharge Prescriptions: New Sertraline [Zoloft] 50 mg PO DAILY #30 tab Thiamine [Vitamin B-1] 100 mg PO DAILY #30 tablet Discharge Medication List Sertraline [Zoloft] 50 mg PO DAILY #30 tab 10/25/21 [Rx] Thiamine [Vitamin B-1] 100 mg PO DAILY #30 tablet 10/25/21 [Rx] Follow up Appointment(s)/Referral(s): Ralph Nicole MD [STAFF PHYSICIAN] - 1 Week Discharge Disposition: HOME SELF-CARE
[2021-10-25] MEDS ORDERED: chlordiazePOXIDE 25 MG CAP PO STA (13:39)
[2021-10-25 14:33] VITALS: BP 128/66; PULSE 82; RESP 20; TEMP 98.4
== END 2021-10-25 15:25 | disposition home or self-care (01) ==
LOC: EC 17:01 → 6NMEDSUR 19:08
PROVIDERS: ADMIT Internal Medicine; ATTEND Internal Medicine
DX: F10.229 Alcohol dependence with intoxication, unspecified (principal); F10.239 Alcohol dependence with withdrawal, unspecified; F17.200 Nicotine dependence, unspecified, uncomplicated; Y90.8 Blood alcohol level of 240 mg/100 ml or more; F32.A Depression, unspecified; Z59.00 Homelessness unspecified; Z71.89 Other specified counseling; Z71.41 Alcohol abuse counseling and surveillance of alcoholic
CPT/HCPCS: 96372; 99285; 36415; 80053; 82550; 83690; 83735; 85025; 80306; 87635; G0378 ×2; G0480; J3411; 80320

== ENCOUNTER 2021-11-01 20:55 | Emergency (ER) | payer OTHER ==
[2021-11-01 21:05] VITALS: RESP 18; TEMP 97.6
[2021-11-01 21:52] VITALS: BP 148/72; PULSE 76
--- NOTE | 2021-11-01 22:46 | ED ---
Alcohol HPI - General Chief Complaint: Alcohol Stated Complaint: ETOH Time Seen by Provider: 11/01/21 21:29 Source: EMS, old records reviewed Mode of arrival: EMS Limitations: altered mental status - History of Present Illness Initial Comments: this is a 55-year-old male to the emergency room for evaluation regarding. Patient comes in here for evaluation of intoxication. Patient is well-known to our facility just recently admitted for alcohol intoxication. Patient brought in by EMS for evaluation alcohol intoxication, patient is a poor story and unable to provide history MD Complaint: alcohol intoxication Last Drink: just LEAD TINNER -: minute(s) Previous Visits for Alcohol Intoxication?: Yes Recent Trauma: No Associated Symptoms: denies other symptoms Treatments Prior to Arrival: none Chronic Alcohol Use: Yes - Related Data Previous Rx's Medication Instructions Recorded Sertraline [Zoloft] 50 mg PO DAILY #30 tab 10/25/21 Thiamine [Vitamin B-1] 100 mg PO DAILY #30 tablet 10/25/21 Allergies Allergy/AdvReac Type Severity Reaction Status Date / Time No Known Allergies Allergy Verified 11/01/21 21:57 Review of Systems ROS Statement: Those systems with pertinent positive or pertinent negative responses have been documented in the HPI. ROS Other: All systems not noted in ROS Statement are negative. Past Medical History Past Medical History: No Reported History Additional Past Medical History / Comment(s): etoh History of Any Multi-Drug Resistant Organisms: None Reported Past Surgical History: Hernia Repair Past Anesthesia/Blood Transfusion Reactions: No Reported Reaction Past Psychological History: No Psychological Hx Reported Smoking Status: Current every day smoker Past Alcohol Use History: Abuse, Daily, Heavy Past Drug Use History: None Reported - Past Family History Family Family Medical History: No Reported History General Exam General appearance: appears intoxicated Head exam: Present: atraumatic, normocephalic, normal inspection Eye exam: Present: normal appearance, PERRL, EOMI. Absent: scleral icterus, conjunctival injection, periorbital swelling ENT exam: Present: normal exam, mucous membranes moist Neck exam: Present: normal inspection. Absent: tenderness, meningismus, lymphadenopathy Respiratory exam: Present: normal lung sounds bilaterally. Absent: respiratory distress, wheezes, rales, rhonchi, stridor Cardiovascular Exam: Present: regular rate, normal rhythm, normal heart sounds. Absent: systolic murmur, diastolic murmur, rubs, gallop, clicks GI/Abdominal exam: Present: soft, normal bowel sounds. Absent: distended, tenderness, guarding, rebound, rigid Extremities exam: Present: normal inspection, full ROM, normal capillary refill. Absent: tenderness, pedal edema, joint swelling, calf tenderness Back exam: Present: normal inspection Neurological exam: Present: alert, oriented X3, CN II-XII intact Psychiatric exam: Present: normal affect, normal mood Skin exam: Present: warm, dry, intact, normal color. Absent: rash Course Vital Signs 11/01/21 11/01/21 21:00 21:50 Temperature 97.6 F Pulse Rate 81 76 Respiratory 18 18 Rate Blood Pressure 107/74 148/72 O2 Sat by Pulse 97 95 Oximetry - Reevaluation(s) Reevaluation #1: 11/02/21 01:16 medical record is reviewed Reevaluation #2: 11/02/21 01:17 patient observed here in the ER until acting normal feeling normal Medical Decision Making - Medical Decision Making 55 male under observation for alcohol intoxication. Patient is awake alert safe for discharge Disposition Clinical Impression: Alcoholic intoxication Disposition: HOME SELF-CARE Condition: Fair Instructions (If sedation given, give patient instructions): Alcohol Intoxication (ED) Is patient prescribed a controlled substance at d/c from ED?: No Referrals: None,Stated [Primary Care Provider] - 1-2 days
== END 2021-11-02 01:11 | disposition home or self-care (01) ==
LOC: EC 20:55
DX: F10.129 Alcohol abuse with intoxication, unspecified (principal); F17.200 Nicotine dependence, unspecified, uncomplicated

== ENCOUNTER 2021-11-04 15:15 | Inpatient (IN) | payer OTHER ==
[2021-11-04] MEDS ORDERED: SODIUM CHLORIDE 0.9% 1,000 ML IV ONE (16:05)
[2021-11-04] MEDS ORDERED: SODIUM CHLORIDE 0.9% 1,000 ML with THIAMINE 100 MG, FOLIC ACID 1 MG IV ONE ×3 (16:05)
[2021-11-04] MEDS ORDERED: SODIUM CHLORIDE 0.9% 500 ML 500 ML IV ONE (16:05)
[2021-11-04 16:46] LABS: Basophils # (A) 0.1 k/uL (0-0.2); Basophils % (A) 2 %; Eosinophils # (A) 0.1 k/uL (0-0.7); Eosinophils % (A) 1 %; HCT 53.6 % (39.0-53.0); HGB 17.8 gm/dL (13.0-17.5); Lymphocytes # (A) 1.9 k/uL (1.0-4.8); Lymphocytes % (A) 23 %; MCH 34.1 pg (25.0-35.0); MCHC 33.2 g/dL (31.0-37.0); MCV 102.9 fL (80.0-100.0); Macrocytosis Slight; Mean Platelet Volume 7.2; Monocytes # (A) 0.6 k/uL (0-1.0); Monocytes % (A) 7 %; Neutrophils # (A) 5.3 k/uL (1.3-7.7); Neutrophils % (A) 64 %; Platelet Count 240 k/uL (150-450); RBC 5.21 m/uL (4.30-5.90); RDW 13.8 % (11.5-15.5); WBC 8.3 k/uL (3.8-10.6)
--- NOTE | 2021-11-04 16:46 | ED ---
General Adult HPI - General Chief complaint: Alcohol Stated complaint: ETOH Time Seen by Provider: 11/04/21 15:35 Source: patient, RN notes reviewed, old records reviewed Mode of arrival: ambulatory Limitations: no limitations - History of Present Illness Initial comments: This is a 56-year-old male brought in by police because of alcohol intoxication. Patient was found outside and he was unable to take care of himself to the emergency department. Patient states he was shaking have because he was celebrating his birthday yesterday. Patient denies any headache patient denies any trauma. Patient denies chest pain difficulty breathing first breath per patient denies abdominal pain patient denies any recent fever chills patient denies nausea vomiting diarrhea - Related Data Previous Rx's Medication Instructions Recorded Sertraline [Zoloft] 50 mg PO DAILY #30 tab 10/25/21 Thiamine [Vitamin B-1] 100 mg PO DAILY #30 tablet 10/25/21 Allergies Allergy/AdvReac Type Severity Reaction Status Date / Time No Known Allergies Allergy Verified 11/04/21 15:58 Review of Systems ROS Statement: Those systems with pertinent positive or pertinent negative responses have been documented in the HPI. ROS Other: All systems not noted in ROS Statement are negative. Past Medical History Past Medical History: No Reported History Additional Past Medical History / Comment(s): etoh History of Any Multi-Drug Resistant Organisms: None Reported Past Surgical History: Hernia Repair Past Anesthesia/Blood Transfusion Reactions: No Reported Reaction Past Psychological History: No Psychological Hx Reported Smoking Status: Current every day smoker Past Alcohol Use History: Abuse, Daily, Heavy Past Drug Use History: None Reported - Past Family History Family Family Medical History: No Reported History General Exam - General Exam Comments Initial Comments: GENERAL: Patient is well-developed and well-nourished. Patient is nontoxic and well-h ydrated and is in no acute distress however appears very intoxicated.. ENT: Neck is soft and supple. No significant lymphadenopathy is noted. Oropharynx is clear. Moist mucous membranes. Neck has full range of motion without eliciting any pain. EYES: The sclera were anicteric and conjunctiva were pink and moist. Extraocular movements were intact and pupils were equal round and reactive to light. Eyelids were unremarkable. PULMONARY: Unlabored respirations. Good breath sounds bilaterally. No audible rales rhonchi or wheezing was noted. CARDIOVASCULAR: There is a regular rate and rhythm without any murmurs gallops or rubs. ABDOMEN: Soft and nontender with normal bowel sounds. SKIN: Skin is clear with no lesions or rashes and otherwise unremarkable. NEUROLOGIC: Patient is alert and oriented x3. Cranial nerves II through XII are grossly intact. Motor and sensory are also intact. Normal speech, volume and content. Symmetrical smile. MUSCULOSKELETAL: Normal extremities with adequate strength and full range of motion. LYMPHATICS: No significant lymphadenopathy is noted PSYCHIATRIC: Normal psychiatric evaluation. Limitations: no limitations Course Vital Signs 11/04/21 11/04/21 15:32 20:29 Temperature 98.2 F 98.2 F Pulse Rate 78 85 Respiratory 18 16 Rate Blood Pressure 158/99 145/75 O2 Sat by Pulse 97 98 Oximetry Procedures - Restraint - Face to Face Restraint Occurrence 1 Patient's Immediate Situation: Endangers self safety, Endangers others' safety Patient's Reaction to the Intervention: Uncooperative, Angry, Belligerent Patient's Medical & Behavioral Condition: Awake, Agitated Need to Continue or Terminate Restraint or Seclusion: Continue Face to Face Eval of Restraint Date: 11/04/21 Face to Face Eval of Restraint Time: 18:31 Medical Decision Making - Medical Decision Making Patient is significantly intoxicated. I spoke with sound physician's they agreed to admit the patient admitted the patient I wrote admitting orders I put the patient was Ativan protocol for withdrawal. Patient received a liter and half of fluid. Also started the patient on a banana bag. - Lab Data Result diagrams: 11/04/21 16:31 11/04/21 16:31 Lab Results 11/04/21 11/04/21 Range/Units 16:31 16:31 WBC 8.3 (3.8-10.6) k/uL RBC 5.21 (4.30-5.90) m/uL Hgb 17.8 H (13.0-17.5) gm/dL Hct 53.6 H (39.0-53.0) % MCV 102.9 H (80.0-100.0) fL MCH 34.1 (25.0-35.0) pg MCHC 33.2 (31.0-37.0) g/dL RDW 13.8 (11.5-15.5) % Plt Count 240 (150-450) k/uL MPV 7.2 Neutrophils % 64 % Lymphocytes % 23 % Monocytes % 7 % Eosinophils % 1 % Basophils % 2 % Neutrophils # 5.3 (1.3-7.7) k/uL Lymphocytes # 1.9 (1.0-4.8) k/uL Monocytes # 0.6 (0-1.0) k/uL Eosinophils # 0.1 (0-0.7) k/uL Basophils # 0.1 (0-0.2) k/uL Macrocytosis Slight Sodium 139 (137-145) mmol/L Potassium 3.9 (3.5-5.1) mmol/L Chloride 108 H (98-107) mmol/L Carbon Dioxide 22 (22-30) mmol/L Anion Gap 9 mmol/L BUN 7 L (9-20) mg/dL Creatinine 0.55 L (0.66-1.25) mg/dL Est GFR (CKD-EPI)AfAm >90 (>60 ml/min/1.73 sqM) Est GFR (CKD-EPI)NonAf >90 (>60 ml/min/1.73 sqM) Glucose 88 (74-99) mg/dL Calcium 8.7 (8.4-10.2) mg/dL Magnesium 2.2 (1.6-2.3) mg/dL Total Bilirubin 0.5 (0.2-1.3) mg/dL AST 59 (17-59) U/L ALT 37 (4-49) U/L Alkaline Phosphatase 152 H (38-126) U/L Total Protein 7.6 (6.3-8.2) g/dL Albumin 4.0 (3.5-5.0) g/dL Serum Alcohol 394 H* mg/dL Disposition Clinical Impression: Alcoholic intoxication Disposition: ADMITTED IP TO THIS [facility] Time of Disposition: 17:41
[2021-11-04 17:02] LABS: ALT 37 U/L (4-49); AST 59 U/L (17-59); African American GFR (CKD) >90 (>60 ml/min/1.73 sqM); Alkaline Phosphatase 152 U/L (38-126); Anion Gap 9 mmol/L; Blood Urea Nitrogen 7 mg/dL (9-20); Calcium 8.7 mg/dL (8.4-10.2); Carbon Dioxide 22 mmol/L (22-30); Chloride 108 mmol/L (98-107); Glucose 88 mg/dL (74-99); Magnesium 2.2 mg/dL (1.6-2.3); Non-African American GFR(CKD) >90 (>60 ml/min/1.73 sqM); Potassium 3.9 mmol/L (3.5-5.1); Sodium 139 mmol/L (137-145); Total Bilirubin 0.5 mg/dL (0.2-1.3); Total Protein 7.6 g/dL (6.3-8.2)
[2021-11-04 17:20] LABS: Alcohol 394 mg/dL
[2021-11-04] MEDS ORDERED: THIAMINE 100 MG/ML 2 ML VIAL IM STA (17:43)
[2021-11-04] MEDS ORDERED: LORazepam 2 MG/ML INJ IV PRN ×3 (17:43)
[2021-11-04] MEDS ORDERED: ZIPRASIDONE 20 MG VIAL IM STA (18:04)
--- NOTE | 2021-11-04 22:16 | P.HPIM ---
History of Present Illness H&P Date: 11/04/21 Chief Complaint: Alcohol intoxication 56-year-old male, unable to provide any meaningful history due to alcohol intoxication Per ED notes patient was found outside shaking intoxicated for which she was brought in by police to the hospital for evaluation per ED notes patient was celebrating the day before and had to drink too much alcohol. However patient is able to tell me that he is homeless and lives [place] the bridge he doesn't volunteer any further information however when asked about headache chest pain or trouble breathing he denies any and he asks to be left al one to sleep Blood work in the ED showed macrocytosis without anemia, no leukocytosis Slightly elevated alk phos Alcohol level CCCXCIV Blood pressure slightly elevated at 145/75 Review of Systems ROS unobtainable: due to mental status Past Medical History Past Medical History: No Reported History, Unable to Obtain Additional Past Medical History / Comment(s): etoh History of Any Multi-Drug Resistant Organisms: None Reported Past Surgical History: Hernia Repair Past Anesthesia/Blood Transfusion Reactions: No Reported Reaction Past Psychological History: No Psychological Hx Reported Smoking Status: Current every day smoker Past Alcohol Use History: Abuse, Daily, Heavy Past Drug Use History: None Reported - Past Family History Family Family Medical History: No Reported History Medications and Allergies Home Medications Medication Instructions Recorded Confirmed Type Sertraline [Zoloft] 50 mg PO DAILY #30 tab 10/25/21 11/04/21 Rx Thiamine [Vitamin B-1] 100 mg PO DAILY #30 tablet 10/25/21 11/04/21 Rx Allergies Allergy/AdvReac Type Severity Reaction Status Date / Time No Known Allergies Allergy Verified 11/04/21 15:58 Physical Exam Vitals: Vital Signs Temp Pulse Resp BP Pulse Ox 11/04/21 20:29 98.2 F 85 16 145/75 98 11/04/21 15:32 98.2 F 78 18 158/99 97 Intake and Output 11/04/21 11/04/21 11/04/21 06:59 14:59 22:59 Other: Weight 70.307 kg Constitutional: No acute distress, patient seems slightly confused and intoxicated Eyes: Anicteric sclerae, moist conjunctiva, Pupils equal round reactive to light ENMT: NC/AT Oropharynx clear, no erythema, or exudates Neck: Supple, no masses, or JVD No carotid bruits No thyromegaly Lungs: Clear to auscultation Clear to percussion Normal respiratory effort, no accessory muscle use Cardiovascular: Heart regular in rate and rhythm, No murmurs, gallops, or rubs No peripheral edema Abdominal: Soft Nontender, no guarding, rebound or rigidity Abdomen moving with respiration Normoactive bowel sounds No hepatomegaly, No splenomegaly No palpable mass No abdominal wall hernia noted Skin: Normal temperature, tone, texture, turgor No induration No subcutaneous nodules No rash, lesions No ulcers Extremities: No digital cyanosis No clubbing Pedal pulses intact and symmetrical Radial pulses intact and symmetrical No calf tenderness Psychiatric: Sleepy easily arousable however intoxicated Neuro Muscles Strength 4/5 in all 4 extremities Sensation to light touch grossly present throughout Unable to perform the rest of neuro exam patient was not cooperating Lymphatics: no palpable cervical or supraclavicular lymph nodes Results CBC & Chem 7: 11/04/21 16:31 11/04/21 16:31 Labs: Abnormal Lab Results - Last 24 Hours (Table) 11/04/21 11/04/21 Range/Units 16:31 16:31 Hgb 17.8 H (13.0-17.5) gm/dL Hct 53.6 H (39.0-53.0) % MCV 102.9 H (80.0-100.0) fL Chloride 108 H (98-107) mmol/L BUN 7 L (9-20) mg/dL Creatinine 0.55 L (0.66-1.25) mg/dL Alkaline Phosphatase 152 H (38-126) U/L Serum Alcohol 394 H* mg/dL Thrombosis Risk Factor Assmnt - Choose All That Apply Any of the Below Risk Factors Present?: Yes Each Factor Represents 1 point: Age 41-60 years Other Risk Factors: No Other congenital or acquired thrombophilia - If yes, enter type in comment: No Thrombosis Risk Factor Assessment Total Risk Factor Score: 1 Thrombosis Risk Factor Assessment Level: Low Risk Assessment and Plan Assessment: Acute severe alcohol intoxication with delirium Monitor for alcohol withdrawal syndrome Benzodiazepines per CIWA scale IV fluid hydration with normal saline Thiamine PPI Fall precautions Seizure precautions Supportive care Macrocytosis without anemia most likely secondary to alcohol abuse and maln utrition Unknown past medical history Unknown home medications Patient is homeless Full code DVT prophylaxis heparin subcu 3 times a day Anticipated length of stay less than 2 midnights
[2021-11-05] MEDS: PANTOPRAZOLE 40 MG TABLET PO SCH ×3 (00:10→16:38)
[2021-11-05] MEDS: HEPARIN SODIUM,PORCINE/PF 5,000 UNIT/0.5 ML SYRINGE SQ SCH ×3 (00:10→16:39)
[2021-11-05] MEDS: THIAMINE 100 MG TAB PO SCH ×2 (07:14→16:38)
[2021-11-05 10:38] LABS: Basophils # (A) 0.11 X 10*3/uL (0.00-0.10); Basophils % (A) 0.9 %; Eosinophils # (A) 0.05 X 10*3/uL (0.04-0.35); Eosinophils % (A) 0.4 %; HCT 47.6 % (39.6-50.0); HGB 15.8 g/dL (13.0-17.0); Immature Grans, Automated 0.5 %; Lymphocytes # (A) 0.75 X 10*3/uL (0.90-5.00); Lymphocytes % (A) 5.8 %; MCH 32.7 pg (27.0-32.0); MCHC 33.2 g/dL (32.0-37.0); MCV 98.6 fL (80.0-97.0); Mean Platelet Volume 10.1 fL (9.5-12.2); Monocytes # (A) 1.17 X 10*3/uL (0.20-1.00); Monocytes % (A) 9.1 %; NRBC Per 100 WBC 0 /100 WBCS (0.0-0.0); Neutrophils # (A) 10.72 X 10*3/uL (1.80-7.70); Neutrophils % (A) 83.3 %; Platelet Count 234 X 10*3/uL (140-440); RBC 4.83 X 10*6/uL (4.40-5.60); RDW 14.3 % (11.5-14.5); WBC 12.86 X 10*3/uL (4.50-10.00)
[2021-11-05 10:48] LABS: African American GFR (CKD) 131.2 (60.0-200.0); Albumin 3.6 g/dL (3.8-4.9); Albumin/Globulin Ratio 1.44 (1.60-3.17); Anion Gap 11.7 mmol/L (10.00-18.00); BUN/Creat Ratio 8.83 Ratio (12.00-20.00); Blood Urea Nitrogen 5.3 mg/dL (9.0-27.0); Calcium 8.8 mg/dL (8.7-10.3); Carbon Dioxide 23.3 mmol/L (20.0-27.5); Globulin 2.5 g/dL (1.6-3.3); Non-African American GFR(CKD) 113.2 (60.0-200.0); Potassium 4.1 mmol/L (3.5-5.5); Total Bilirubin 0.5 mg/dL (0.30-1.20); Total Protein 6.1 g/dL (6.2-8.2)
--- NOTE | 2021-11-05 16:23 | P.PN ---
Subjective Progress Note Date: 11/05/21 Hospital course: Patient is a 56-year-old male with a past medical history of alcohol abuse and tobacco dependence. Patient presented to the emergency department on 11/04/21 and custody of police for alcohol intoxication and brought to the emergency department as patient was unable to provide safe care for self and was found lying on the ground as he reportedly homeless and lives [place] bridge. In the emergency department patient underwent full evaluation. He was found to have an alcohol level of 394, elevated alkaline phosphatase of 152, an elevated hemoglobin of 17.8. Patient was admitted under our services. Physical exam: Patient seen and fully evaluated at bedside this morning. He was alert and oriented to person, place, time, and situation. Patient reports that he drinks beer daily and has drink every single day for the past 10 years without missing a single day. Patient reports drinking 4-6 beers daily along with whiskey. Patient reports he was celebrating his birthday and that is why he was so intoxicated when the police brought him in. Patient declining assistance with placement in rehab or information regarding outpatient resources available to him. Overnight patient has been exhibiting some signs of withdrawal such as hypertension, tachycardia, and low-grade temp of 99.6. This morning patient is slightly tremulous, he denies having any headache, lightheadedness, dizziness, chest pain, palpitations, shortness of breath, or experiencing any visual/auditory/tactile hallucinations. Patient being given 1 mg of Ativan per [place] protocol at this time. Vital signs reviewed and stable. General: Nontoxic, no distress and appears stated age. Unkempt and disheveled appearance. Derm: Skin warm and dry, normal coloration for ethnicity. Head: Atraumatic, normocephalic and symmetric. Eyes: EOMs intact, no lid lag, and anicteric sclera Mouth: no lip lesions, mucus membranes moist Cardiovascular: regular rate and rhythm with normal S1S2, no murmur, positive posterior tibial pulses bilaterally, and cap refill < 2 seconds. Lungs: Respirations even, regular, and unlabored on room air. Lungs CTA bilaterally, no rhonchi, no rales, no wheezing, and no accessory muscle usage. Abdominal: soft, nontender to palpation, no guarding, no appreciable organomegaly Ext: ROM intact. No gross muscle atrophy, no edema, no contractures Neuro: Speech clear, face symmetrical and CN II-XII grossly intact with no noted focal neuro deficits Psych: Alert and oriented to person, place, time, and situation. Appropriate and pleasant affect. Assessment and Plan of Care: Alcohol intoxication pending withdrawal -[facility] Protocol with symptom triggered medication management with benzodiazepines. -Patient received 3 L 0.9% normal saline for IV hydration. -Thiamine 100 mg twice a day -Multivitamin daily -Folate 1 mg daily -Seizure, fall, aspiration, and elopement precautions in place. -Continued close monitoring of electrolytes and replace as needed. -Telemetry monitoring. -Consult to social work for possible assistance with placement in a homeless care home. Nicotine dependence -Nicotine patch. Encouraged cessation. CODE STATUS: Full code DVT prophylaxis: Heparin Discussed with: Patient and RN Anticipated discharge date: 1-[address]: Possible homeless care home A total of 35 minutes was spent on the care of this complex patient more than 50% of the time was spent in counseling and care coordination. Objective - Vital Signs Vital signs: Vital Signs Temp 98.6 F 11/05/21 14:24 Pulse 74 11/05/21 14:24 Resp 18 11/05/21 07:13 BP 149/88 11/05/21 14:24 Pulse Ox 98 11/05/21 14:24 Intake & Output 11/04/21 11/05/21 11/05/21 18:59 06:59 18:59 Intake Total 1999 Balance 1999 Weight 70.307 kg 70.307 kg Intake: Intake, IV Titration 2000 Amount Sodium Chloride 0.9% 1, 1000 000 ml @ 999 mls/hr IV . Q1H1M ONE Rx#:[id number] Sodium Chloride 0.9% 500 1000 ml 500 ml @ 999 mls/hr IV .Q31M ONE Rx#:[id number] Other: # Voids 2 - Labs CBC & Chem 7: 11/05/21 06:41 11/05/21 06:41 Labs: Abnormal Lab Results - Last 24 Hours (Table) 11/04/21 11/04/21 11/05/21 Range/Units 16:31 16:31 06:41 WBC 12.86 H (4.50-10.00) X 10*3/uL Hgb 17.8 H (13.0-17.5) gm/dL Hct 53.6 H (39.0-53.0) % MCV 102.9 H 98.6 H (80.0-100.0) fL MCH 32.7 H (27.0-32.0) pg Immature Gran # 0.06 H (0.00-0.04) X 10*3/uL Neutrophils # 10.72 H (1.80-7.70) X 10*3/uL Lymphocytes # 0.75 L (0.90-5.00) X 10*3/uL Monocytes # 1.17 H (0.20-1.00) X 10*3/uL Basophils # 0.11 H (0.00-0.10) X 10*3/uL Chloride 108 H (98-107) mmol/L BUN 7 L (9-20) mg/dL Creatinine 0.55 L (0.66-1.25) mg/dL BUN/Creatinine Ratio (12.00-20.00) Ratio Glucose (70-110) mg/dL AST (14-35) U/L Alkaline Phosphatase 152 H (38-126) U/L Total Protein (6.2-8.2) g/dL Albumin (3.8-4.9) g/dL Albumin/Globulin Ratio (1.60-3.17) g/dL Serum Alcohol 394 H* mg/dL 11/05/21 Range/Units 06:41 WBC (4.50-10.00) X 10*3/uL Hgb (13.0-17.5) gm/dL Hct (39.0-53.0) % MCV (80.0-100.0) fL MCH (27.0-32.0) pg Immature Gran # (0.00-0.04) X 10*3/uL Neutrophils # (1.80-7.70) X 10*3/uL Lymphocytes # (0.90-5.00) X 10*3/uL Monocytes # (0.20-1.00) X 10*3/uL Basophils # (0.00-0.10) X 10*3/uL Chloride (98-107) mmol/L BUN 5.3 L (9-20) mg/dL Creatinine (0.66-1.25) mg/dL BUN/Creatinine Ratio 8.83 L (12.00-20.00) Ratio Glucose 140 H (70-110) mg/dL AST 43 H (14-35) U/L Alkaline Phosphatase 133 H (38-126) U/L Total Protein 6.1 L (6.2-8.2) g/dL Albumin 3.6 L (3.8-4.9) g/dL Albumin/Globulin Ratio 1.44 L (1.60-3.17) g/dL Serum Alcohol mg/dL
[2021-11-05] MEDS: MULTIVITAMINS, THERA 1 EACH TAB PO SCH (16:38)
[2021-11-05] MEDS: FOLIC ACID 1 MG TAB PO SCH (16:38)
[2021-11-05] MEDS: NICOTINE 21MG/24HR PATCH TRANSDERM SCH (16:38)
[2021-11-06] MEDS: HEPARIN SODIUM,PORCINE/PF 5,000 UNIT/0.5 ML SYRINGE SQ SCH ×2 (00:04→09:28)
[2021-11-06 07:34] VITALS: BP 143/82; PULSE 72; RESP 18; TEMP 98.4
[2021-11-06] MEDS: NICOTINE 21MG/24HR PATCH TRANSDERM SCH (09:28)
[2021-11-06] MEDS: MULTIVITAMINS, THERA 1 EACH TAB PO SCH (09:28)
[2021-11-06] MEDS: FOLIC ACID 1 MG TAB PO SCH (09:28)
[2021-11-06] MEDS: THIAMINE 100 MG TAB PO SCH (09:28)
[2021-11-06] MEDS: PANTOPRAZOLE 40 MG TABLET PO SCH (09:28)
--- NOTE | 2021-11-06 15:52 | P.DS ---
Providers Date of admission: 11/04/21 17:42 Expected date of discharge: 11/06/21 Attending physician: Chandler Catherine MD Primary care physician: Stated None Hospital Course: Discharge Diagnosis: Alcohol intoxication pending withdrawal Nicotine dependence Hospital Course: Patient is a 56-year-old male with a past medical history of alcohol abuse and tobacco dependence. Patient presented to the emergency department on 11/04/21 and custody of police for alcohol intoxication and brought to the emergency department as patient was unable to provide safe care for self and was found lying on the ground as he reportedly homeless [place] bridge. In the emergency department patient underwent full evaluation. He was found to have an alcohol level of 394, elevated alkaline phosphatase of 152, an elevated hemoglobin of 17.8. Patient was admitted under our services. He received IV hydration and over 24 hour time period only received 1 mg of Ativan for treatment of alcohol withdrawal. Patient was offered assistance with placement in rehab and outpatient resources that are available to him. Patient declining. Patient states that he wants to be discharged in medically is stable for discharge. Again patient offered assistance with placement in rehab or even homeless [place] [facility] and patient declined. Patient was given [employer] gift cards, blankets, and additional food to take with him upon discharge. Physical exam: Vital signs reviewed and stable. General: Nontoxic, no distress and appears stated age. Unkempt and disheveled appearance. Derm: Skin warm and dry, normal coloration for ethnicity. Head: Atraumatic, normocephalic and symmetric. Eyes: EOMs intact, no lid lag, and anicteric sclera Mouth: no lip lesions, mucus membranes moist Cardiovascular: regular rate and rhythm with normal S1S2, no murmur, positive posterior tibial pulses bilaterally, and cap refill < 2 seconds. Lungs: Respirations even, regular, and unlabored on room air. Lungs CTA bilaterally, no rhonchi, no rales, no wheezing, and no accessory muscle usage. Abdominal: soft, nontender to palpation, no guarding, no appreciable organomegaly Ext: ROM intact. No gross muscle atrophy, no edema, no contractures Neuro: Speech clear, face symmetrical and CN II-XII grossly intact with no noted focal neuro deficits Psych: Alert and oriented to person, place, time, and situation. Appropriate and pleasant affect. A total of 35 minutes of time were spent preparing this complex discharge summary. Patient Condition at Discharge: Stable Plan - Discharge Summary Discharge Rx Participant: Yes New Discharge Prescriptions: Continue Sertraline [Zoloft] 50 mg PO DAILY #30 tab Thiamine [Vitamin B-1] 100 mg PO DAILY #30 tablet Discharge Medication List Sertraline [Zoloft] 50 mg PO DAILY #30 tab 10/25/21 [Rx] Thiamine [Vitamin B-1] 100 mg PO DAILY #30 tablet 10/25/21 [Rx] Follow up Appointment(s)/Referral(s): None,Stated [Primary Care Provider] - 1-2 days Patient Instructions/Handouts: Nonepileptic Seizures (DC) Activity/Diet/Wound Care/Special Instructions: Activity: As tolerated. Take breaks as needed. Diet: Heart healthy and carb consistent diet. Avoid salts, or foods with hidden salts such as canned or boxed foods and frozen dinners. Extra salt makes your heart work harder and traps the fluid in your body for longer. Special Instructions: Take all of your medications as directed and remember to keep all of your doctor's appointments and follow-up as needed. Thank you for allowing us to participate in your care, it was truly a pleasure having you for our patient!!! Discharge Disposition: HOME SELF-CARE
== END 2021-11-06 11:03 | disposition home or self-care (01) | DRG 897 ==
LOC: EC 15:15 → 4SSUR 17:42
PROVIDERS: ADMIT Internal Medicine; ATTEND Internal Medicine
DX: F10.121 Alcohol abuse with intoxication delirium (principal); E46 Unspecified protein-calorie malnutrition; F10.139 Alcohol abuse with withdrawal, unspecified; D75.89 Other specified diseases of blood and blood-forming organs; Z68.23 Body mass index [BMI] 23.0-23.9, adult; F17.200 Nicotine dependence, unspecified, uncomplicated; Y90.8 Blood alcohol level of 240 mg/100 ml or more; Z59.00 Homelessness unspecified; Z79.899 Other long term (current) drug therapy
CPT/HCPCS: 36415; 80053; 80320; 83735; 85025; 96361; 96372; 96374; 99285

== ENCOUNTER 2021-12-07 23:48 | Emergency (ER) | payer OTHER ==
[2021-12-07 23:55] VITALS: BP 130/85; PULSE 79; RESP 16; TEMP 96.8
--- NOTE | 2021-12-08 07:14 | ED ---
Alcohol HPI - General Chief Complaint: Alcohol Stated Complaint: ETOH Time Seen by Provider: 12/08/21 01:23 Source: patient Mode of arrival: ambulatory Limitations: altered mental status (Detoxicated) - History of Present Illness Initial Comments: Patient's 56-year-old man found sleeping on hospital grounds. Patient denies trauma. Admits alcohol use. Denies other complaints. MD Complaint: alcohol intoxication Last Drink: unknown Previous Visits for Alcohol Intoxication?: Yes Recent Trauma: No Associated Symptoms: denies other symptoms - Related Data Previous Rx's Medication Instructions Recorded Sertraline [Zoloft] 50 mg PO DAILY #30 tab 10/25/21 Thiamine [Vitamin B-1] 100 mg PO DAILY #30 tablet 10/25/21 Allergies Allergy/AdvReac Type Severity Reaction Status Date / Time No Known Allergies Allergy Verified 12/07/21 23:54 Review of Systems ROS Statement: Those systems with pertinent positive or pertinent negative responses have been documented in the HPI. ROS Other: All systems not noted in ROS Statement are negative. Limitations: ROS unobtainable due to patients medical condition (Intoxicated) Respiratory: Denies: cough, dyspnea Cardiovascular: Denies: chest pain Gastrointestinal: Denies: abdominal pain Musculoskeletal: Denies: back pain Neurological: Denies: headache Past Medical History Past Medical History: No Reported History, Unable to Obtain Additional Past Medical History / Comment(s): etoh History of Any Multi-Drug Resistant Organisms: None Reported Past Surgical History: Hernia Repair Past Anesthesia/Blood Transfusion Reactions: No Reported Reaction Past Psychological History: No Psychological Hx Reported Smoking Status: Current every day smoker Past Alcohol Use History: Abuse, Daily, Heavy Past Drug Use History: None Reported - Past Family History Family Family Medical History: No Reported History General Exam Limitations: no limitations General appearance: alert, in no apparent distress, appears intoxicated Head exam: Present: atraumatic, normocephalic Eye exam: Present: normal appearance Respiratory exam: Present: normal lung sounds bilaterally, rhonchi. Absent: respiratory distress, wheezes, rales, stridor Cardiovascular Exam: Present: regular rate, normal rhythm, normal heart sounds. Absent: systolic murmur, diastolic murmur, rubs, gallop GI/Abdominal exam: Present: soft. Absent: distended, tenderness, guarding, rebound, rigid Back exam: Present: normal inspection. Absent: CVA tenderness (R), CVA tenderness (L) Neurological exam: Present: altered, CN II-XII intact. Absent: motor sensory deficit Skin exam: Present: warm, dry, intact, normal color. Absent: rash Course Vital Signs 12/07/21 23:54 Temperature 96.8 F L Pulse Rate 79 Respiratory 16 Rate Blood Pressure 130/85 O2 Sat by Pulse 98 Oximetry Disposition Clinical Impression: Alcoholic intoxication Disposition: HOME SELF-CARE Condition: Fair Instructions (If sedation given, give patient instructions): Alcohol Intoxication (ED) Is patient prescribed a controlled substance at d/c from ED?: No Referrals: None,Stated [Primary Care Provider] - 1-2 days
== END 2021-12-08 07:17 | disposition home or self-care (01) ==
LOC: EC 23:48
DX: F10.129 Alcohol abuse with intoxication, unspecified (principal); F17.200 Nicotine dependence, unspecified, uncomplicated
CPT/HCPCS: 99284

== ENCOUNTER 2021-12-29 00:58 | Emergency (ER) | payer OTHER ==
[2021-12-29 01:07] VITALS: TEMP 98
[2021-12-29 06:19] VITALS: RESP 18
[2021-12-29 07:03] VITALS: BP 146/84; PULSE 84
--- NOTE | 2022-01-25 19:13 | ED ---
Alcohol HPI - General Chief Complaint: Alcohol Stated Complaint: ETOH Time Seen by Provider: 12/29/21 01:11 Source: patient, police Mode of arrival: ambulatory - History of Present Illness Initial Comments: Patient's 56-year-old man brought by police for being found intoxicated and sleeping in a workplace. Patient denies any complaints. Denies fall or injury. MD Complaint: alcohol intoxication Last Drink: unknown -: minute(s) Previous Visits for Alcohol Intoxication?: Yes Recent Trauma: No Associated Symptoms: denies other symptoms Treatments Prior to Arrival: none Chronic Alcohol Use: Yes - Related Data Previous Rx's Medication Instructions Recorded Sertraline [Zoloft] 50 mg PO DAILY #30 tab 10/25/21 Thiamine [Vitamin B-1] 100 mg PO DAILY #30 tablet 10/25/21 Clotrimazole Cream [Lotrimin Cream] 1 applic TOPICAL BID 21 Days #60 gm 01/07/22 Allergies Allergy/AdvReac Type Severity Reaction Status Date / Time No Known Allergies Allergy Verified 01/07/22 21:54 Review of Systems ROS Statement: Those systems with pertinent positive or pertinent negative responses have been documented in the HPI. ROS Other: All systems not noted in ROS Statement are negative. Eyes: Denies: vision change Respiratory: Denies: cough, dyspnea Cardiovascular: Denies: chest pain Gastrointestinal: Denies: abdominal pain, vomiting Musculoskeletal: Denies: back pain Neurological: Denies: headache, weakness Past Medical History Past Medical History: No Reported History, Unable to Obtain Additional Past Medical History / Comment(s): etoh History of Any Multi-Drug Resistant Organisms: None Reported Past Surgical History: Hernia Repair Past Anesthesia/Blood Transfusion Reactions: No Reported Reaction Past Psychological History: No Psychological Hx Reported Smoking Status: Current every day smoker Past Alcohol Use History: Abuse, Daily, Heavy Past Drug Use History: None Reported - Past Family History Family Family Medical History: No Reported History General Exam General appearance: alert, in no apparent distress, appears intoxicated Head exam: Present: atraumatic, normocephalic, normal inspection Eye exam: Present: normal appearance, PERRL, EOMI, nystagmus. Absent: scleral icterus, conjunctival injection Neck exam: Present: normal inspection, full ROM. Absent: tenderness Respiratory exam: Present: normal lung sounds bilaterally. Absent: respiratory distress, wheezes, rales, rhonchi, stridor, chest wall tenderness Cardiovascular Exam: Present: regular rate, normal rhythm, normal heart sounds. Absent: systolic murmur, diastolic murmur, rubs, gallop GI/Abdominal exam: Present: soft. Absent: distended, tenderness, guarding, rebound, mass Extremities exam: Present: normal inspection Back exam: Present: normal inspection. Absent: vertebral tenderness Neurological exam: Present: alert, oriented X3, other (There is moderate ataxia. Mild dysarthria.). Absent: motor sensory deficit Skin exam: Present: warm, dry, intact, normal color. Absent: rash Course Vital Signs 12/29/21 12/29/21 12/29/21 01:04 06:00 07:02 Temperature 98 F Pulse Rate 97 84 Respiratory 19 18 18 Rate Blood Pressure 172/93 146/84 O2 Sat by Pulse 95 95 Oximetry Medical Decision Making - Medical Decision Making Patient's 56-year-old man brought for public intoxication. He did sleep a number of hours and he was clinically sober prior to discharge. Walking without ataxia, talking without dysarthria. Disposition Clinical Impression: Alcoholic intoxication Disposition: HOME SELF-CARE Condition: Good Instructions (If sedation given, give patient instructions): Alcohol Intoxication (ED) Is patient prescribed a controlled substance at d/c from ED?: No Referrals: None,Stated [Primary Care Provider] - 1-2 days
== END 2021-12-29 07:18 | disposition home or self-care (01) ==
LOC: EC 00:58
DX: F10.129 Alcohol abuse with intoxication, unspecified (principal); F17.200 Nicotine dependence, unspecified, uncomplicated
CPT/HCPCS: 99283

== ENCOUNTER 2022-01-01 21:49 | Emergency (ER) | payer OTHER ==
[2022-01-01 22:19] VITALS: RESP 20
[2022-01-01] MEDS ORDERED: ZIPRASIDONE 20 MG VIAL IM STA (22:38)
--- NOTE | 2022-01-01 22:50 | ED ---
Alcohol HPI - General Chief Complaint: Alcohol Stated Complaint: Intoxicated Time Seen by Provider: 01/01/22 22:12 Source: patient, police, RN notes reviewed, old records reviewed Mode of arrival: ambulatory Limitations: no limitations - History of Present Illness Initial Comments: This is a 56-year-old male to the emergency department for evaluation. Patient presents today for evaluation of significant alcohol intoxication. Patient unable to provide history secondary to significant intoxication. Patient's brought to the emergency department well-known to our emergency department for alcohol intoxication. Patient is homeless. Patient arrives by PD for evaluation regarding petition for try to jump in front of the car Complaint: alcohol intoxication Last Drink: just [employer] -: minute(s) Previous Visits for Alcohol Intoxication?: Yes Recent Trauma: Yes Associated Symptoms: denies other symptoms Treatments Prior to Arrival: none Chronic Alcohol Use: Yes - Related Data Previous Rx's Medication Instructions Recorded Sertraline [Zoloft] 50 mg PO DAILY #30 tab 10/25/21 Thiamine [Vitamin B-1] 100 mg PO DAILY #30 tablet 10/25/21 Allergies Allergy/AdvReac Type Severity Reaction Status Date / Time No Known Allergies Allergy Verified 01/01/22 22:27 Review of Systems ROS Statement: Those systems with pertinent positive or pertinent negative responses have been documented in the HPI. ROS Other: All systems not noted in ROS Statement are negative. Past Medical History Past Medical History: No Reported History, Unable to Obtain Additional Past Medical History / Comment(s): etoh History of Any Multi-Drug Resistant Organisms: None Reported Past Surgical History: Hernia Repair Past Anesthesia/Blood Transfusion Reactions: No Reported Reaction Past Psychological History: No Psychological Hx Reported Smoking Status: Current every day smoker Past Alcohol Use History: Abuse, Daily, Heavy Past Drug Use History: None Reported - Past Family History Family Family Medical History: No Reported History General Exam General appearance: appears intoxicated Head exam: Present: atraumatic, normocephalic, normal inspection Eye exam: Present: normal appearance, PERRL, EOMI. Absent: scleral icterus, conjunctival injection, periorbital swelling ENT exam: Present: normal exam, mucous membranes moist Neck exam: Present: normal inspection. Absent: tenderness, meningismus, lymphadenopathy Respiratory exam: Present: normal lung sounds bilaterally. Absent: respiratory distress, wheezes, rales, rhonchi, stridor Cardiovascular Exam: Present: regular rate, normal rhythm, normal heart sounds. Absent: systolic murmur, diastolic murmur, rubs, gallop, clicks GI/Abdominal exam: Present: soft, normal bowel sounds. Absent: distended, tenderness, guarding, rebound, rigid Extremities exam: Present: normal inspection, full ROM, normal capillary refill. Absent: tenderness, pedal edema, joint swelling, calf tenderness Back exam: Present: normal inspection Neurological exam: Present: alert, oriented X3, CN II-XII intact Psychiatric exam: Present: normal affect, normal mood Skin exam: Present: warm, dry, intact, normal color. Absent: rash Course Vital Signs 01/01/22 01/01/22 01/02/22 21:55 22:13 03:00 Temperature 97.5 F L 97.6 F Pulse Rate 102 H 78 Respiratory 18 20 20 Rate Blood Pressure 157/102 155/85 O2 Sat by Pulse 92 L 98 Oximetry 01/02/22 06:24 Temperature 98.3 F Pulse Rate 79 Respiratory 20 Rate Blood Pressure 154/87 O2 Sat by Pulse 98 Oximetry - Reevaluation(s) Reevaluation #1: 01/01/22 22:49 Medical record is reviewed Reevaluation #2: 01/01/22 22:50 Patient requiring chemical sedation for agitation Reevaluation #3: 01/02/22 Patient is awake and alert able to ambulate without difficulty with like to be discharged home Medical Decision Making - Medical Decision Making 56 mailed ER with alcohol intoxication, well-known to our facility for similar admissions, patient currently awake and alert was able to sleep it off Overnight and can be discharged home, patient is homeless - Lab Data Lab Results 01/01/22 Range/Units 22:48 Urine Color Light Yellow Urine Appearance Clear (Clear) Urine pH 5.0 (5.0-8.0) Ur Specific [place] 1.002 (1.001-1.035) Urine Protein Negative (Negative) Urine Glucose (UA) Negative (Negative) Urine Ketones Negative (Negative) Urine Blood Negative (Negative) Urine Nitrite Negative (Negative) Urine Bilirubin Negative (Negative) Urine Urobilinogen <2.0 (<2.0) mg/dL Ur Leukocyte Esterase Negative (Negative) Urine Opiates Screen Not Detected (NotDetected) Ur Oxycodone Screen Not Detected (NotDetected) Urine Methadone Screen Not Detected (NotDetected) Ur Propoxyphene Screen Not Detected (NotDetected) Ur Barbiturates Screen Not Detected (NotDetected) U Tricyclic Antidepress Not Detected (NotDetected) Ur Phencyclidine Scrn Not Detected (NotDetected) Ur Amphetamines Screen Not Detected (NotDetected) U Methamphetamines Scrn Not Detected (NotDetected) U Benzodiazepines Scrn Not Detected (NotDetected) Urine Cocaine Screen Not Detected (NotDetected) U Marijuana (THC) Screen Not Detected (NotDetected) Disposition Clinical Impression: Alcoholic intoxication Disposition: HOME SELF-CARE Condition: Fair Instructions (If sedation given, give patient instructions): Alcohol Intoxication (ED) Is patient prescribed a controlled substance at d/c from ED?: No Referrals: None,Stated [Primary Care Provider] - 1-2 days
[2022-01-01 23:14] LABS: Appearance,Urine Clear (Clear); Bilirubin,Urine Negative (Negative); Blood,Urine Negative (Negative); Color,Urine Light Yellow; Glucose,Urine (UA) Negative (Negative); Ketones,Urine Negative (Negative); Leukocyte Esterase,Urine Negative (Negative); Nitrite,Urine Negative (Negative); Protein,Urine Negative (Negative); Specific Gravity,Urine 1.002 (1.001-1.035); Urobilinogen,Urine <2.0 mg/dL (<2.0)
[2022-01-01 23:43] LABS: Amphetamine Screen,Urine Not Detected (NotDetected); Barbiturate Screen,Urine Not Detected (NotDetected); Benzodiazepines Screen,Urine Not Detected (NotDetected); Cocaine Screen,Urine Not Detected (NotDetected); Methadone Screen, Urine Not Detected (NotDetected); Opiate Screen,Urine Not Detected (NotDetected); Oxycodone Screen, Urine Not Detected (NotDetected); Phencyclidine Screen,Urine Not Detected (NotDetected); Tricyclic Antidepressant,Urine Not Detected (NotDetected); Urn Cannabinoid Scrn Not Detected (NotDetected)
[2022-01-02 06:25] VITALS: BP 154/87; PULSE 79; TEMP 98.3
== END 2022-01-02 06:27 | disposition home or self-care (01) ==
LOC: EC 21:49
DX: F10.929 Alcohol use, unspecified with intoxication, unspecified (principal); F17.200 Nicotine dependence, unspecified, uncomplicated
CPT/HCPCS: 99284; 96372; 82075; 81003; 80306; J3486

== ENCOUNTER 2022-01-07 19:53 | Emergency (ER) | payer OTHER ==
[2022-01-07 21:54] VITALS: BP 128/76; PULSE 97; RESP 18; TEMP 98.4
[2022-01-07] MEDS ORDERED: ACETAMINOPHEN TAB 500 MG TAB PO STA (22:23)
--- NOTE | 2022-01-07 22:23 | ED ---
Skin/Abscess/FB HPI - General Chief complaint: Skin/Abscess/Foreign Body Stated complaint: red/swollen feet Time Seen by Provider: 01/07/22 22:15 Source: patient, RN notes reviewed Mode of arrival: wheelchair - History of Present Illness Initial comments: This is a 56-year-old male with a history of chronic alcoholism, patient states he is outside a lot. His feet are bothering him. Patient states his feet frequently get wet. Patient is also walking around today in warm weather in what appeared to be Winter socks and boots. She is getting inflammation and itching rashes to both feet. Patient denies any other skin rash or irritation. No headache, no fever or chills, no changes in vision or hearing, no sore throat or difficulty with speech, no neck pain, no chest pain or shortness of breath, no abdominal pain, no nausea or vomiting, no changes in urination or bowel movements, no numbness or tingling, no extremity pain - Related Data Previous Rx's Medication Instructions Recorded Sertraline [Zoloft] 50 mg PO DAILY #30 tab 10/25/21 Thiamine [Vitamin B-1] 100 mg PO DAILY #30 tablet 10/25/21 Clotrimazole Cream [Lotrimin Cream] 1 applic TOPICAL BID 21 Days #60 gm 01/07/22 Allergies Allergy/AdvReac Type Severity Reaction Status Date / Time No Known Allergies Allergy Verified 01/07/22 21:54 Review of Systems ROS Statement: Those systems with pertinent positive or pertinent negative responses have been documented in the HPI. ROS Other: All systems not noted in ROS Statement are negative. Past Medical History Past Medical History: No Reported History, Unable to Obtain Additional Past Medical History / Comment(s): etoh History of Any Multi-Drug Resistant Organisms: None Reported Past Surgical History: Hernia Repair Past Anesthesia/Blood Transfusion Reactions: No Reported Reaction Past Psychological History: No Psychological Hx Reported Smoking Status: Current every day smoker Past Alcohol Use History: Abuse, Daily, Heavy Past Drug Use History: None Reported - Past Family History Family Family Medical History: No Reported History General Exam General appearance: alert, in no apparent distress Head exam: Present: atraumatic, normocephalic, normal inspection Eye exam: Present: normal appearance, PERRL, EOMI. Absent: scleral icterus, conjunctival injection, periorbital swelling ENT exam: Present: normal exam, mucous membranes moist Neck exam: Present: normal inspection. Absent: tenderness, meningismus, lymphadenopathy Respiratory exam: Present: normal lung sounds bilaterally. Absent: respiratory distress, wheezes, rales, rhonchi, stridor Cardiovascular Exam: Present: regular rate, normal rhythm, normal heart sounds. Absent: systolic murmur, diastolic murmur, rubs, gallop, clicks GI/Abdominal exam: Present: soft, normal bowel sounds. Absent: distended, tenderness, guarding, rebound, rigid Extremities exam: Present: normal inspection, full ROM, normal capillary refill. Absent: tenderness, pedal edema, joint swelling, calf tenderness Back exam: Present: normal inspection Neurological exam: Present: alert, oriented X3, CN II-XII intact Psychiatric exam: Present: normal affect, normal mood Skin exam: Present: warm, dry, intact, rash, other (Patient has a scaling, mildly erythematous rash to both feet consistent with moccasin type tinea pedis. No evidence of cellulitis. No evidence of neurovascular insult. Pulses are intact). Absent: normal color, cyanosis, diaphoretic, urticaria, vesicles Course Vital Signs 01/07/22 21:51 Temperature 98.4 F Pulse Rate 97 Respiratory 18 Rate Blood Pressure 128/76 O2 Sat by Pulse 96 Oximetry Medical Decision Making - Medical Decision Making Patient presents with bilateral irritation and itching with rash consistent with tinea pedis. We will treat with topical antifungals. Discussed conservative measures such as keeping the feet dry, alternating shoes and other measures with the patient. Patient was told to return to the ER for any signs or symptoms worsen. Told to return immediately if any other problems arise. All questions answered. Treatment plan discussed. Patient in agreement Every effort has been made to ensure accuracy of this dictation. However, due to the limitations of electronic medical records and dictation devices, errors in charting still occur. Disposition Clinical Impression: Tinea pedis of both feet Disposition: HOME SELF-CARE Condition: Stable Instructions (If sedation given, give patient instructions): Athlete's Foot (ED) Additional Instructions: Apply the cream twice daily as directed. Keep your feet dry as much as possible. Change and rotate shoes daily. Follow-up with your regular physician. If he do not have regular doctor I will provide U the name of somebody to follow up with. Prescriptions: Clotrimazole Cream [Lotrimin Cream] 1 applic TOPICAL BID 21 Days #60 gm Is patient prescribed a controlled substance at d/c from ED?: No Referrals: Pippa Lyle MD [REFERRING] - 01/14/22 Time of Disposition: 22:21
[2022-01-07] MEDS ORDERED: TERBINAFINE 1% CREAM 15 GM TUBE TOPICAL ONE (22:30)
== END 2022-01-07 22:56 | disposition home or self-care (01) ==
LOC: EC 19:53
DX: B35.3 Tinea pedis (principal); F17.200 Nicotine dependence, unspecified, uncomplicated
CPT/HCPCS: 99282

== ENCOUNTER 2022-01-29 23:46 | Emergency (ER) | payer OTHER ==
[2022-01-30] MEDS ORDERED: LORazepam 2 MG/ML INJ IM STA (00:13)
[2022-01-30] MEDS ORDERED: HALOPERIDOL LACTATE 5 MG/ML 1 ML VIAL IM STA (00:14)
[2022-01-30 05:40] LABS: Urn Cannabinoid Scrn Detected (NotDetected)
[2022-01-30 05:41] LABS: Amphetamine Screen,Urine Not Detected (NotDetected); Barbiturate Screen,Urine Not Detected (NotDetected); Benzodiazepines Screen,Urine Not Detected (NotDetected); Cocaine Screen,Urine Not Detected (NotDetected); Methadone Screen, Urine Not Detected (NotDetected); Opiate Screen,Urine Not Detected (NotDetected); Oxycodone Screen, Urine Not Detected (NotDetected); Phencyclidine Screen,Urine Not Detected (NotDetected); Tricyclic Antidepressant,Urine Not Detected (NotDetected)
[2022-01-30 06:55] VITALS: RESP 18
--- NOTE | 2022-01-30 08:21 | ED ---
Alcohol HPI - General Source: police, EMS Mode of arrival: EMS Limitations: language barrier - History of Present Illness MD Complaint: alcohol intoxication Previous Visits for Alcohol Intoxication?: Yes Recent Trauma: No Associated Symptoms: denies other symptoms <Dawood Price - Last Filed: 01/30/22 08:18> <David Pacheco - Last Filed: 01/30/22 14:51> - General Chief Complaint: Alcohol Stated Complaint: ETOH Time Seen by Provider: 01/30/22 00:13 - History of Present Illness Initial Comments: Patient's 56-year-old man brought by police after they found him in the middle of a road. The patient's does admit to drinking. When questioned about suicidal ideation patient states he doesn't care he was just drinking. He had made some statements indicating he didn't care if he lived or to police and they have filed a petition. (Dawood Price) - Related Data Previous Rx's Medication Instructions Recorded Sertraline [Zoloft] 50 mg PO DAILY #30 tab 10/25/21 Thiamine [Vitamin B-1] 100 mg PO DAILY #30 tablet 10/25/21 Clotrimazole Cream [Lotrimin Cream] 1 applic TOPICAL BID 21 Days #60 gm 01/07/22 Allergies Allergy/AdvReac Type Severity Reaction Status Date / Time No Known Allergies Allergy Verified 01/30/22 06:56 Review of Systems ROS Other: All systems not noted in ROS Statement are negative. Constitutional: Denies: fever Respiratory: Denies: cough, dyspnea Cardiovascular: Denies: chest pain Gastrointestinal: Denies: abdominal pain Musculoskeletal: Denies: back pain Skin: Denies: rash Neurological: Denies: headache Psychiatric: Reports: suicidal thoughts. Denies: depression, homicidal thoughts <Dawood Price - Last Filed: 01/30/22 08:18> ROS Other: All systems not noted in ROS Statement are negative. <David Pacheco - Last Filed: 01/30/22 14:51> ROS Statement: Those systems with pertinent positive or pertinent negative responses have been documented in the HPI. Past Medical History Past Medical History: No Reported History, Unable to Obtain Additional Past Medical History / Comment(s): etoh History of Any Multi-Drug Resistant Organisms: None Reported Past Surgical History: Hernia Repair Past Anesthesia/Blood Transfusion Reactions: No Reported Reaction Past Psychological History: No Psychological Hx Reported Smoking Status: Current every day smoker Past Alcohol Use History: Abuse, Daily, Heavy Past Drug Use History: None Reported - Past Family History Family Family Medical History: No Reported History <Dawood Price - Last Filed: 01/30/22 08:18> General Exam Limitations: language barrier General appearance: alert, in no apparent distress Head exam: Present: atraumatic, normocephalic Eye exam: Present: normal appearance Neck exam: Present: normal inspection Respiratory exam: Present: normal lung sounds bilaterally. Absent: respiratory distress, wheezes, rales, rhonchi, stridor Cardiovascular Exam: Present: regular rate, normal rhythm, normal heart sounds. Absent: systolic murmur, diastolic murmur, rubs, gallop GI/Abdominal exam: Present: soft. Absent: distended, tenderness, guarding, rebound, rigid, mass Extremities exam: Present: normal inspection, normal capillary refill Back exam: Present: normal inspection. Absent: vertebral tenderness Neurological exam: Present: alert, CN II-XII intact. Absent: motor sensory deficit Psychiatric exam: Present: normal affect Skin exam: Present: warm, dry, intact, normal color. 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 Patient was intoxicated with alcohol. Disposition was pending sobriety as well as psychiatric evaluation. Patient was medically cleared by the prior physician. Psychiatry evaluated the patient when patient was sober. Patient does not meet inpatient criteria, will be set up for discharge home with a safety plan and resources. (David Pacheco) - Lab Data Lab Results 01/30/22 Range/Units 05:05 Urine Opiates Screen Not Detected (NotDetected) Ur Oxycodone Screen Not Detected (NotDetected) Urine Methadone Screen Not Detected (NotDetected) Ur Propoxyphene Screen Not Detected (NotDetected) Ur Barbiturates Screen Not Detected (NotDetected) U Tricyclic Antidepress Not Detected (NotDetected) Ur Phencyclidine Scrn Not Detected (NotDetected) Ur Amphetamines Screen Not Detected (NotDetected) U Methamphetamines Scrn Detected H (NotDetected) U Benzodiazepines Scrn Not Detected (NotDetected) Urine Cocaine Screen Not Detected (NotDetected) U Marijuana (THC) Screen Detected H (NotDetected) Disposition <Dawood Price - Last Filed: 01/30/22 08:18> Is patient prescribed a controlled substance at d/c from ED?: No <David Pacheco - Last Filed: 01/30/22 14:51> Clinical Impression: Alcohol intoxication, Encounter for psychiatric assessment Disposition: HOME SELF-CARE Condition: Good Additional Instructions: see safety discharge plan Referrals: None,Stated [Primary Care Provider] - 1-2 days
[2022-01-30 15:24] VITALS: BP 130/76; PULSE 80; TEMP 98
== END 2022-01-30 15:22 | disposition home or self-care (01) ==
LOC: EC 23:46
DX: Z04.6 Encounter for general psychiatric examination, requested by authority (principal); F10.129 Alcohol abuse with intoxication, unspecified; F17.200 Nicotine dependence, unspecified, uncomplicated
CPT/HCPCS: 82075; 80306; 99285; 96372; J2060; J1630

== ENCOUNTER 2022-04-30 00:53 | Inpatient (IN) | payer OTHER ==
[2022-04-30 03:16] LABS: Basophils # (A) 0.1 k/uL (0-0.2); Basophils % (A) 1 %; Eosinophils # (A) 0.1 k/uL (0-0.7); Eosinophils % (A) 1 %; HCT 53.2 % (39.0-53.0); HGB 17.6 gm/dL (13.0-17.5); Lymphocytes # (A) 1.4 k/uL (1.0-4.8); Lymphocytes % (A) 15 %; MCH 33.5 pg (25.0-35.0); MCHC 33.1 g/dL (31.0-37.0); MCV 101.2 fL (80.0-100.0); Macrocytosis Slight; Mean Platelet Volume 7.5; Monocytes # (A) 0.8 k/uL (0-1.0); Monocytes % (A) 8 %; Neutrophils # (A) 6.5 k/uL (1.3-7.7); Neutrophils % (A) 71 %; Platelet Count 251 k/uL (150-450); RBC 5.26 m/uL (4.30-5.90); WBC 9.3 k/uL (3.8-10.6)
[2022-04-30 03:23] LABS: ALT 21 U/L (4-49); AST 38 U/L (17-59); African American GFR (CKD) >90 (>60 ml/min/1.73 sqM); Albumin 4.5 g/dL (3.5-5.0); Alkaline Phosphatase 146 U/L (38-126); Anion Gap 17 mmol/L; Blood Urea Nitrogen 5 mg/dL (9-20); Calcium 9.5 mg/dL (8.4-10.2); Carbon Dioxide 21 mmol/L (22-30); Chloride 103 mmol/L (98-107); Glucose 91 mg/dL (74-99); Lipase 154 U/L (23-300); Magnesium 2.1 mg/dL (1.6-2.3); Non-African American GFR(CKD) >90 (>60 ml/min/1.73 sqM); Phosphorus 4.3 mg/dL (2.5-4.5); Sodium 141 mmol/L (137-145); Total Bilirubin 0.3 mg/dL (0.2-1.3); Total Protein 7.8 g/dL (6.3-8.2)
[2022-04-30 03:45] LABS: Alcohol 312 mg/dL
[2022-04-30] MEDS ORDERED: LORazepam 2 MG/ML INJ IV PRN ×3 (03:47)
[2022-04-30] MEDS ORDERED: NALOXONE 0.4 MG/ML 1 ML VIAL IV PRN (03:47)
[2022-04-30] MEDS ORDERED: SODIUM CHLORIDE 0.9% 1,000 ML IV SCH (04:00)
[2022-04-30] MEDS ORDERED: THIAMINE 100 MG/ML 2 ML VIAL IM ONE (04:00)
[2022-04-30] MEDS ORDERED: PANTOPRAZOLE 40 MG/10 ML VIAL IV SCH (09:00)
[2022-04-30 11:12] VITALS: BP 138/88; PULSE 81; RESP 18; TEMP 98
[2022-04-30] MEDS ORDERED: THIAMINE 100 MG TAB PO SCH (17:30)
--- NOTE | 2022-05-01 00:12 | HP ---
HISTORY AND PHYSICAL CHIEF COMPLAINT: Alcohol withdrawal. HISTORY OF PRESENT ILLNESS: This 56-year-old gentleman with a past medical history of EtOH, was admitted with significant alcohol intake and withdrawal. The patient initially was intoxicated. Alcohol was elevated. There is no history of any fever, rigors, or chills at this time. PAST MEDICAL HISTORY: History of EtOH, other history reviewed. HOME MEDICATIONS: None. ALLERGIES: None. FAMILY HISTORY: No history of heart disease or strokes in the family. SOCIAL HISTORY: Alcohol, smoking. REVIEW OF SYSTEMS: A 14-point review is negative as mentioned earlier. PHYSICAL EXAMINATION: VITAL SIGNS: Pulse is 88, blood pressure N respirations 18. HEENT: Conjunctivae normal. NECK: No jugular venous distention RESPIRATIONS: Breath sounds diminished at the bases. A few scattered rhonchi. ABDOMEN: Soft. LEGS: No edema, no swelling. NERVOUS SYSTEM: Diffusely weak and tremors. SKIN: Erythematous hue present. JOINTS: No active LABS: Reviewed. Alcohol is 312. ASSESSMENT: 1. Acute alcohol intoxication. 2. Early delirium tremens. 3. History of nicotine dependence. RECOMMENDATIONS: This 56-year-old gentleman presented with multiple complex medical issues. We will monitor the patient closely for DT precautions. [facility] protocol. Prognosis guarded, Social Work consultation. See orders for details, prognosis guarded. MMODL / IJN: [id number] / EARL
== END 2022-04-30 14:50 | disposition left against medical advice (07) | DRG 894 ==
LOC: EC 00:53 → 4SSUR 03:47
PROVIDERS: ADMIT Hospitalist; ATTEND Hospitalist
DX: F10.229 Alcohol dependence with intoxication, unspecified (principal); F10.231 Alcohol dependence with withdrawal delirium; Z87.891 Personal history of nicotine dependence
CPT/HCPCS: 36415; 80053; 80320; 82140; 83690; 83735; 84100; 85025; 96372; 96374; 99285

== ENCOUNTER 2022-08-09 02:05 | Emergency (ER) | payer OTHER ==
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
[2022-08-09 13:52] VITALS: BP 138/88; PULSE 89; RESP 18; TEMP 97.7
== END 2022-08-09 12:50 | disposition home or self-care (01) ==
LOC: EC 02:05
DX: F10.129 Alcohol abuse with intoxication, unspecified (principal); R45.6 Violent behavior; F17.200 Nicotine dependence, unspecified, uncomplicated; F10.10 Alcohol abuse, uncomplicated
CPT/HCPCS: 99284

== ENCOUNTER 2022-09-03 22:45 | Emergency (ER) | payer OTHER ==
[2022-09-03 22:50] VITALS: BP 148/84; PULSE 100; TEMP 97.6
[2022-09-03] MEDS ORDERED: LORazepam 0.5 MG TAB PO PRN (23:26)
[2022-09-03] MEDS ORDERED: LORazepam 1 MG TAB PO PRN ×3 (23:26)
[2022-09-03] MEDS ORDERED: THIAMINE 100 MG/ML 2 ML VIAL IM STA (23:26)
[2022-09-03 23:53] LABS: Appearance,Urine Clear (Clear); Bilirubin,Urine Negative (Negative); Blood,Urine Negative (Negative); Color,Urine Light Yellow; Glucose,Urine (UA) Negative (Negative); Ketones,Urine Negative (Negative); Leukocyte Esterase,Urine Negative (Negative); Nitrite,Urine Negative (Negative); Protein,Urine Negative (Negative); Specific Gravity,Urine 1.004 (1.001-1.035); Urobilinogen,Urine <2.0 mg/dL (<2.0)
[2022-09-04 00:14] LABS: Amphetamine Screen,Urine Not Detected (NotDetected); Barbiturate Screen,Urine Not Detected (NotDetected); Benzodiazepines Screen,Urine Not Detected (NotDetected); Cocaine Screen,Urine Not Detected (NotDetected); Methadone Screen, Urine Not Detected (NotDetected); Opiate Screen,Urine Not Detected (NotDetected); Oxycodone Screen, Urine Not Detected (NotDetected); Phencyclidine Screen,Urine Not Detected (NotDetected); Tricyclic Antidepressant,Urine Not Detected (NotDetected); Urn Cannabinoid Scrn Detected (NotDetected)
[2022-09-04 01:19] VITALS: RESP 16
--- NOTE | 2022-09-04 03:18 | ED ---
Psych HPI - General Source: patient, RN notes reviewed Mode of arrival: ambulatory - History of Present Illness MD Complaint: suicidal ideation, other (ETOH) <Yarely Whittaker - Last Filed: 09/04/22 04:24> <Emory Andrew - Last Filed: 09/04/22 06:05> - General Chief Complaint: Psychiatric Symptoms Stated Complaint: mental health Time Seen by Provider: 09/03/22 22:57 - History of Present Illness Initial Comments: This is a 56-year-old male who presents to the emergency department for alcohol intoxication and psychiatric evaluation. Patient is intoxicated on arrival and denoting suicidal ideations. Currently requesting admission and to speak with the mental health nurse. At this time, he is rambling and not making any sense. We are unable to obtain a history from him including when his last alcoholic beverage was and how much he drank. He does have a substantial history of alcohol abuse, including recurrent emergency department visits for this issue. (Yarely Whittaker) - Related Data Home Medications Medication Instructions Recorded Confirmed No Known Home Medications 04/30/22 04/30/22 Allergies Allergy/AdvReac Type Severity Reaction Status Date / Time No Known Allergies Allergy Verified 09/03/22 22:50 Review of Systems ROS Other: All systems not noted in ROS Statement are negative. <Yarely Whittaker - Last Filed: 09/04/22 04:24> ROS Other: All systems not noted in ROS Statement are negative. <Emory Andrew - Last Filed: 09/04/22 06:05> ROS Statement: Those systems with pertinent positive or pertinent negative responses have been documented in the HPI. Past Medical History Past Medical History: No Reported History, Unable to Obtain Additional Past Medical History / Comment(s): etoh History of Any Multi-Drug Resistant Organisms: None Reported Past Surgical History: Hernia Repair Past Anesthesia/Blood Transfusion Reactions: No Reported Reaction Past Psychological History: No Psychological Hx Reported Smoking Status: Current every day smoker Past Alcohol Use History: Abuse, Daily, Heavy Past Drug Use History: None Reported - Past Family History Family Family Medical History: No Reported History <Yarely Whittaker - Last Filed: 09/04/22 04:24> General Exam Limitations: altered mental status (secondary to ETOH) General appearance: alert, appears intoxicated Head exam: Present: atraumatic, normocephalic, normal inspection Respiratory exam: Present: normal lung sounds bilaterally. Absent: respiratory distress, wheezes, rales, rhonchi, stridor Cardiovascular Exam: Present: regular rate, normal rhythm, normal heart sounds. Absent: systolic murmur, diastolic murmur, rubs, gallop, clicks Neurological exam: Present: alert Psychiatric exam: Present: suicidal ideation. Absent: homicidal ideation Skin exam: Present: warm, dry, intact, normal color. Absent: rash <Yarely Whittaker - Last Filed: 09/04/22 04:24> Course Vital Signs 09/03/22 09/04/22 22:46 01:18 Temperature 97.6 F Pulse Rate 100 Respiratory 18 16 Rate Blood Pressure 148/84 O2 Sat by Pulse 96 Oximetry Medical Decision Making <Yarely Whittaker - Last Filed: 09/04/22 04:24> - Medical Decision Making This is a 56-year-old male who presents to the emergency department for alcohol intoxication and psychiatric evaluation. Was pt. sent in by a medical professional or institution? @ -No Did you speak to anyone other than the patient for history? @ -No Did you review nursing and triage notes? @ -Agree, accurate with regards to the patient's symptoms. Were old charts reviewed? @ -No Differential Diagnosis? @ --Alcohol intoxication, overdose, CVA, sympathomimetic syndrome, anti- muscarinic syndrome, serotonin syndrome, neuroleptic malignant syndrome, thyrotoxicosis, encephalitis, acute psychosis, hypoglycemia, trauma, sepsis. This is not meant to be an all-inclusive list. What testing was considered but not performed? (CT, X-rays, U/S, labs)? Why? @ -None What meds were considered but not given? Why? @ -[none] Did you discuss the management of the patient with other professionals? @ -No Did you reconcile home meds? @ -No Was smoking cessation discussed for >3mins.? @ -No Was critical care preformed (if so, how long)? @ -No Were there social determinants of health that impacted care today? How? (Homelessness, low income, unemployed, alcoholism, drug addiction, transportation, low edu. Level, literacy, decrease access to med. care, retirement, rehab)? @ -Alcoholism, unemployed Was there de-escalation of care discussed even if they declined? (Discuss DNR or withdrawal of care, Hospice)? @ -No What co-morbidities impacted this encounter? (DM, HTN, Smoking, COPD, CAD, Cancer, CVA, Hep., AIDS, mental health diagnosis, sleep apnea, morbid obesity)? @ -[DM, HTN, Smoking, COPD, CAD, Cancer, CVA, Hep., AIDS, mental health diagnosis, sleep apnea, morbid obesity?] Was patient admitted / discharged? @ -Patient was intoxicated and aggressive on arrival. ETOH level was 0.141. He provided a urine sample but declined any initial blood work or medication, and eventually fell asleep. He was sober at approximately 0300. Case signed out to Dr. Andrew at shift change. At this point, the plan is to have EPS evaluate the patient based on his suicidal statements. Drug Therapy requiring intensive monitoring for toxicity (Heparin, Nitro, Insulin, Cardizem)? @ -None Were any procedures done? @ -None Diagnosis/symptom? @ -[default] Acute, or Chronic, or Acute on Chronic? @ -[default] Uncomplicated (without systemic symptoms) or Complicated (systemic symptoms)? @ -[default] Side effects of treatment? @ -[none] Exacerbation, Progression, or Severe Exacerbation] @ -Not applicable Poses a threat to life or bodily function? @ -[no] (Yarely Whittaker) - Lab Data Lab Results 09/03/22 Range/Units 23:43 Urine Color Light Yellow Urine Appearance Clear (Clear) Urine pH 5.0 (5.0-8.0) Ur Specific [place] 1.004 (1.001-1.035) Urine Protein Negative (Negative) Urine Glucose (UA) Negative (Negative) Urine Ketones Negative (Negative) Urine Blood Negative (Negative) Urine Nitrite Negative (Negative) Urine Bilirubin Negative (Negative) Urine Urobilinogen <2.0 (<2.0) mg/dL Ur Leukocyte Esterase Negative (Negative) Urine Opiates Screen Not Detected (NotDetected) Ur Oxycodone Screen Not Detected (NotDetected) Urine Methadone Screen Not Detected (NotDetected) Ur Propoxyphene Screen Not Detected (NotDetected) Ur Barbiturates Screen Not Detected (NotDetected) U Tricyclic Antidepress Not Detected (NotDetected) Ur Phencyclidine Scrn Not Detected (NotDetected) Ur Amphetamines Screen Not Detected (NotDetected) U Methamphetamines Scrn Not Detected (NotDetected) U Benzodiazepines Scrn Not Detected (NotDetected) Urine Cocaine Screen Not Detected (NotDetected) U Marijuana (THC) Screen Detected H (NotDetected) Disposition <Yarely Whittaker - Last Filed: 09/04/22 04:24> Is patient prescribed a controlled substance at d/c from ED?: No Time of Disposition: 06:00 <Emory Andrew - Last Filed: 09/04/22 06:05> Clinical Impression: Depression, Alcoholic intoxication Disposition: HOME SELF-CARE Condition: Fair Instructions (If sedation given, give patient instructions): Abuse of Alcohol (ED) Referrals: None,Stated [Primary Care Provider] - 1-2 days
== END 2022-09-04 06:12 | disposition home or self-care (01) ==
LOC: EC 22:45
DX: F32.A Depression, unspecified (principal); F10.129 Alcohol abuse with intoxication, unspecified; F17.200 Nicotine dependence, unspecified, uncomplicated
CPT/HCPCS: 80306; 81003; 82075; 99284

== ENCOUNTER 2022-09-25 00:34 | Emergency (ER) | payer OTHER ==
[2022-09-25 00:48] VITALS: BP 125/80; PULSE 76; RESP 18; TEMP 97.5
--- NOTE | 2022-09-25 01:32 | ED ---
Alcohol HPI - General Chief Complaint: Alcohol Stated Complaint: Mental Health Time Seen by Provider: 09/25/22 00:38 Source: patient, RN notes reviewed Mode of arrival: ambulatory Limitations: no limitations - History of Present Illness Initial Comments: 56-year-old male presents emergency Department with chief complaint of alcohol intoxication and homelessness. Patient states that he is cold outside he states that he has been drinking alcohol tonight and complains of anxiety denies being suicidal, homicidal or depressed. He has no physical complaints other then being cold. patient has been emergency dept several times in the past. - Related Data Home Medications Medication Instructions Recorded Confirmed No Known Home Medications 04/30/22 04/30/22 Allergies Allergy/AdvReac Type Severity Reaction Status Date / Time No Known Allergies Allergy Verified 09/25/22 00:42 Review of Systems ROS Statement: Those systems with pertinent positive or pertinent negative responses have been documented in the HPI. ROS Other: All systems not noted in ROS Statement are negative. Past Medical History Past Medical History: No Reported History, Unable to Obtain Additional Past Medical History / Comment(s): etoh History of Any Multi-Drug Resistant Organisms: None Reported Past Surgical History: Hernia Repair Past Anesthesia/Blood Transfusion Reactions: No Reported Reaction Past Psychological History: No Psychological Hx Reported Smoking Status: Current every day smoker Past Alcohol Use History: Abuse, Daily, Heavy Past Drug Use History: None Reported - Past Family History Family Family Medical History: No Reported History General Exam Limitations: no limitations General appearance: alert, in no apparent distress Head exam: Present: atraumatic, normocephalic, normal inspection Eye exam: Present: normal appearance, PERRL, EOMI. Absent: scleral icterus, conjunctival injection, periorbital swelling ENT exam: Present: mucous membranes moist. Absent: normal exam, normal oropharynx (Edentulous) Neck exam: Present: normal inspection, full ROM. Absent: tenderness, meningismus, lymphadenopathy Respiratory exam: Present: normal lung sounds bilaterally. Absent: respiratory distress, wheezes, rales, rhonchi, stridor Cardiovascular Exam: Present: regular rate, normal rhythm, normal heart sounds. Absent: systolic murmur, diastolic murmur, rubs, gallop, clicks Neurological exam: Present: alert, oriented X3 Skin exam: Present: warm, dry, intact, normal color. Absent: rash Course Vital Signs 09/25/22 00:42 Temperature 97.5 F L Pulse Rate 76 Respiratory 18 Rate Blood Pressure 125/80 O2 Sat by Pulse 97 Oximetry Medical Decision Making - Medical Decision Making Was pt. sent in by a medical professional or institution (JATINDER Wilson, ADJUNCT TEACHER, urgent care, hospital, or halfway...) When possible be specific @ -No Did you speak to anyone other than the patient for history (EMS, parent, family, police, friend...)? What history was obtained from this source @ -No Did you review nursing and triage notes (agree or disagree)? Why? @ -I reviewed and agree with nursing and triage notes Were old charts reviewed (outside hosp., previous admission, EMS record, old EKG, old radiological studies, urgent care reports/EKG's, halfway records)? Report findings @ -No old charts were reviewed Differential Diagnosis (chest pain, altered mental status, abdominal pain women, abdominal pain men, vaginal bleeding, weakness, fever, dyspnea, syncope, headache, dizziness, GI bleed, back pain, seizure, CVA, palpatations, mental health)? @ -Anxiety, alcohol intoxication, drug abuse, this was not all-inclusive EKG interpreted by me (3pts min.). @ -None X-rays interpreted by me (1pt min.). @ -None done CT interpreted by me (1pt min.). @ -None done U/S interpreted by me (1pt. min.). @ -None done What testing was considered but not performed or refused? (CT, X-rays, U/S, labs)? Why? @ -None What meds were considered but not given or refused? Why? @ -None Did you discuss the management of the patient with other professionals (professionals i.e. JATINDER Wilson, ADJUNCT TEACHER, lab, RT, psych nurse, social media strategist, toll bridge operator, teacher, human resource officer, case assembler)? Give summary @ -No Was smoking cessation discussed for >3mins.? @ -No Was critical care preformed (if so, how long)? @ -No Were there social determinants of health that impacted care today? How? (Homelessness, low income, unemployed, alcoholism, drug addiction, transportation, low edu. Level, literacy, decrease access to med. care, correction, rehab)? @ -Patient is homeless and alcoholic patient struggles to find somewhere to stay including halfway because he is an alcoholic. Was there de-escalation of care discussed even if they declined (Discuss DNR or withdrawal of care, Hospice)? DNR status @ -No What co-morbidities impacted this encounter? (DM, HTN, Smoking, COPD, CAD, Cancer, CVA, ARF, Chemo, Hep., AIDS, mental health diagnosis, sleep apnea, morbid obesity)? @ -None Was patient admitted / discharged? Hospital course, mention meds given and route, prescriptions, significant lab abnormalities, going to OR and other pe rtinent info. @ -Discharged patient had minimally elevated alcohol level. Patient was be kept here until sober he denied being suicidal or homicidal denies any drug use. Patient was escorted by nurse prior to my discharge Undiagnosed new problem with uncertain prognosis? @ -No Drug Therapy requiring intensive monitoring for toxicity (Heparin, Nitro, Insulin, Cardizem)? @ -No Were any procedures done? @ -No Diagnosis/symptom? @ -Alcohol intoxication Acute, or Chronic, or Acute on Chronic? @ -Acute on chronic Uncomplicated (without systemic symptoms) or Complicated (systemic symptoms)? @ -Uncomplicated Side effects of treatment? @ -No Exacerbation, Progression, or Severe Exacerbation? @ -No Poses a threat to life or bodily function? How? (Chest pain, [place], [place], pneumonia, PE, COPD, DKA, ARF, appy, cholecystitis, CVA, Diverticulitis, Homicidal, Suic idal, threat to staff... and all critical care pts) @ -No Disposition Clinical Impression: Alcoholic intoxication Disposition: Left Against Medical Advice Condition: Fair Referrals: None,Stated [Primary Care Provider] - 1-2 days Time of Disposition: 02:48
== END 2022-09-25 01:45 | disposition left against medical advice (07) ==
LOC: EC 00:34
DX: F10.129 Alcohol abuse with intoxication, unspecified (principal); F17.200 Nicotine dependence, unspecified, uncomplicated; Z59.00 Homelessness unspecified; Z53.29 Procedure and treatment not carried out because of patient's decision for other reasons
CPT/HCPCS: 99283

== ENCOUNTER 2022-09-26 23:31 | Emergency (ER) | payer OTHER ==
[2022-09-26 23:38] VITALS: BP 135/98; PULSE 79; RESP 12; TEMP 97.4
--- NOTE | 2022-09-26 23:59 | ED ---
General Adult HPI - General Chief complaint: Alcohol Stated complaint: Drunk Time Seen by Provider: 09/26/22 23:39 Source: patient, RN notes reviewed, old records reviewed Mode of arrival: ambulatory Limitations: no limitations - History of Present Illness Initial comments: 56-year-old male presents ambulatory with complaints of anxiety. Patient states he has been drinking today but denies any drug use. Denies any pain or discomfort. Denies homicidal or suicidal ideations. Denies any trauma. -: days(s) (1) Severity scale (1-10): 0 Associated Symptoms: other (anxiety) - Related Data Home Medications Medication Instructions Recorded Confirmed No Known Home Medications 04/30/22 04/30/22 Allergies Allergy/AdvReac Type Severity Reaction Status Date / Time No Known Allergies Allergy Verified 09/25/22 00:42 Review of Systems ROS Statement: Those systems with pertinent positive or pertinent negative responses have been documented in the HPI. ROS Other: All systems not noted in ROS Statement are negative. Past Medical History Past Medical History: No Reported History, Unable to Obtain Additional Past Medical History / Comment(s): etoh History of Any Multi-Drug Resistant Organisms: None Reported Past Surgical History: Hernia Repair Past Anesthesia/Blood Transfusion Reactions: No Reported Reaction Past Psychological History: No Psychological Hx Reported Smoking Status: Current every day smoker Past Alcohol Use History: Abuse, Daily, Heavy Past Drug Use History: None Reported - Past Family History Family Family Medical History: No Reported History General Exam Limitations: no limitations, altered mental status (Alcohol intoxication) General appearance: alert, in no apparent distress Head exam: Present: atraumatic, normocephalic, normal inspection Eye exam: Absent: scleral icterus, periorbital swelling, periorbital tenderness ENT exam: Present: mucous membranes moist, other (poor dentition with missing teeth) Neck exam: Present: normal inspection, full ROM. Absent: tenderness, meningismus Respiratory exam: Absent: respiratory distress, accessory muscle use Cardiovascular Exam: Present: regular rate GI/Abdominal exam: Present: soft. Absent: distended, tenderness, guarding, rebound, rigid Back exam: Present: normal inspection. Absent: tenderness, CVA tenderness (R), CVA tenderness (L), rash noted Neurological exam: Present: alert, normal gait Psychiatric exam: Present: normal affect, normal mood. Absent: flat affect, manic, homicidal ideation, suicidal ideation Skin exam: Present: warm, dry, normal color. Absent: cyanosis, diaphoretic, petechiae, pallor Course Vital Signs 09/26/22 23:34 Temperature 97.4 F L Pulse Rate 79 Respiratory 12 Rate Blood Pressure 135/98 O2 Sat by Pulse 100 Oximetry Medical Decision Making - Medical Decision Making Patient presents to the emergency room with intoxication and anxiety. In the hospital emergency room frequently for same. Patient up ambulating in ruiz in no acute distress. Disposition Clinical Impression: Alcoholic intoxication Disposition: Left Against Medical Advice Condition: Stable Instructions (If sedation given, give patient instructions): Alcohol Intoxication (ED) Is patient prescribed a controlled substance at d/c from ED?: No Referrals: None,Stated [Primary Care Provider] - 1-2 days Time of Disposition: 03:15
== END 2022-09-27 00:53 | disposition left against medical advice (07) ==
LOC: EC 23:31
DX: F10.129 Alcohol abuse with intoxication, unspecified (principal); F17.200 Nicotine dependence, unspecified, uncomplicated; Z53.29 Procedure and treatment not carried out because of patient's decision for other reasons
CPT/HCPCS: 99283

== ENCOUNTER 2022-11-23 00:10 | Emergency (ER) | payer OTHER ==
[2022-11-23] MEDS ORDERED: LORazepam 2 MG/ML INJ IM STA (00:17)
[2022-11-23] MEDS ORDERED: HALOPERIDOL LACTATE 5 MG/ML 1 ML VIAL IM STA (00:18)
[2022-11-23] MEDS ORDERED: SODIUM CHLORIDE 0.9% 1,000 ML IV STA (00:39)
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
[2022-11-23 01:07] VITALS: BP 130/86; PULSE 81; RESP 20; TEMP 98.2
[2022-11-23 01:34] LABS: Basophils # (A) 0.1 k/uL (0-0.2); Basophils % (A) 1 %; Eosinophils # (A) 0.2 k/uL (0-0.7); Eosinophils % (A) 2 %; HCT 52.7 % (39.0-53.0); HGB 17.9 gm/dL (13.0-17.5); Lymphocytes # (A) 1.9 k/uL (1.0-4.8); Lymphocytes % (A) 27 %; MCH 32.6 pg (25.0-35.0); MCV 95.9 fL (80.0-100.0); Mean Platelet Volume 7.6; Monocytes # (A) 0.3 k/uL (0-1.0); Monocytes % (A) 4 %; Neutrophils # (A) 4.5 k/uL (1.3-7.7); Neutrophils % (A) 62 %; Platelet Count 265 k/uL (150-450); RDW 14.1 % (11.5-15.5); WBC 7.3 k/uL (3.8-10.6)
[2022-11-23 01:39] LABS: African American GFR (CKD) >90 (>60 ml/min/1.73 sqM); Anion Gap 14 mmol/L; Blood Urea Nitrogen 8 mg/dL (9-20); Carbon Dioxide 19 mmol/L (22-30); Chloride 109 mmol/L (98-107); Glucose 89 mg/dL (74-99); Non-African American GFR(CKD) >90 (>60 ml/min/1.73 sqM); Potassium 4.3 mmol/L (3.5-5.1); Sodium 142 mmol/L (137-145)
[2022-11-23 02:14] LABS: Alcohol 352 mg/dL
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
--- NOTE | 2022-11-23 03:53 | XR ---
EXAMINATION TYPE: XR chest 1V DATE OF EXAM: 11/23/2022 COMPARISON: NONE HISTORY: Pain TECHNIQUE: Single view FINDINGS: Heart and mediastinum are normal. Lungs are clear of consolidation. There are some coarse i nterstitial infiltrate in the left mid lung and the right lower lobe. No heart failure. Diaphragm is normal. Bony thorax is intact. IMPRESSION: There are some pulmonary interstitial infiltrates which are increased compared to old exa m. Normal heart size. No pneumothorax.
== END 2022-11-23 06:11 | disposition home or self-care (01) ==
LOC: EC 00:10
DX: F10.129 Alcohol abuse with intoxication, unspecified (principal); F91.1 Conduct disorder, childhood-onset type; F17.200 Nicotine dependence, unspecified, uncomplicated; Y90.8 Blood alcohol level of 240 mg/100 ml or more; W18.30XA Fall on same level, unspecified, initial encounter
CPT/HCPCS: 99291 ×2; 96360 ×2; 96372 ×2; 36415; 93005; 80048; 85025; 71045; 72125; 70486; 70450; G0480; J2060; J1630; 80320

== ENCOUNTER 2023-04-08 22:12 | Emergency (ER) | payer OTHER ==
[2023-04-08] MEDS ORDERED: ACETAMINOPHEN TAB 325 MG TAB PO STA (23:25)
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
--- NOTE | 2023-04-09 00:02 | CT ---
EXAM: CT Head Without Intravenous Contrast CLINICAL HISTORY: ITS.REASON CT Reason: head injury TECHNIQUE: Axial computed tomography images of the head/brain without intravenous contrast. CTDI is 45.2 mGy and DLP is 1048 mGy-cm. This CT exam was performed using one or more of the following dose reduction techniques: automated exposure control, adjustment of the mA and/or kV according to patient size, and/or use of iterative reconstruction technique. COMPARISON: No relevant prior studies available. FINDINGS: No acute intracranial hemorrhage. No midline shift or mass effect. The territorial snell-white matter differentiation is maintained throughout. The ventricles and sulci are commensurate with age. The visualized orbits appear grossly unremarkable. The calvarium is intact. Mild right periorbital soft-tissue swelling. The visualized paranasal sinuses and mastoid air cells are grossly clear. IMPRESSION: No acute intracranial hemorrhage, midline shift, or mass effect. Mild right periorbital soft-tissue swelling. EXAM: CT Cervical Spine Without Intravenous Contrast CLINICAL HISTORY: ITS.REASON CT Reason: head injury TECHNIQUE: Axial computed tomography images of the cervical spine without intravenous contrast. CTDI is 10.7 mGy and DLP is 314.7 mGy-cm. This CT exam was performed using one or more of the following dose reduction techniques: automated exposure control, adjustment of the mA and/or kV according to patient size, and/or use of iterative reconstruction technique. COMPARISON: No relevant prior studies available. FINDINGS: The vertebral body heights are maintained. The craniocervical junction is intact. The atlanto-dens interval is maintained. The dens is intact. There is no spondylolisthesis. Multilevel cervical spondylosis and degenerative disc disease. Straightening of the cervical lordosis. The unenhanced neck soft tissues are grossly unremarkable. The visualized lung apices are grossly clear. IMPRESSION: No acute fracture or subluxation of the cervical spine.
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
[2023-04-09 06:21] VITALS: BP 127/77; PULSE 87; RESP 17; TEMP 98.7
== END 2023-04-09 06:22 | disposition home or self-care (01) ==
LOC: EC 22:12
DX: S00.03XA Contusion of scalp, initial encounter (principal); M47.816 Spondylosis without myelopathy or radiculopathy, lumbar region; F17.200 Nicotine dependence, unspecified, uncomplicated; Y04.0XXA Assault by unarmed brawl or fight, initial encounter; Y92.410 Unspecified street and highway as the place of occurrence of the external cause; Y93.01 Activity, walking, marching and hiking
CPT/HCPCS: 70450; 72100; 72125; 72220; 82075; 99284; 99285

== ENCOUNTER 2023-04-11 05:28 | Observation (INO) | payer OTHER ==
--- NOTE | 2023-04-11 06:38 | ED ---
Alcohol HPI - General Chief Complaint: Alcohol Stated Complaint: ETOH Source: patient Mode of arrival: wheelchair Limitations: altered mental status (Appears intoxicated) - History of Present Illness Initial Comments: This patient is 57-year-old man brought to have evaluation of suspected intoxication. Patient reportedly was very intoxicated in public, first round were not able to understand what he was sighing they brought him to have evaluation. When I review the patient he is denying trauma. Admits to drinking tonight. Patient otherwise poor historian MD Complaint: alcohol intoxication Last Drink: unknown Previous Visits for Alcohol Intoxication?: Yes Recent Trauma: No Associated Symptoms: denies other symptoms - Related Data Home Medications Medication Instructions Recorded Confirmed No Known Home Medications 04/30/22 04/11/23 Allergies Allergy/AdvReac Type Severity Reaction Status Date / Time No Known Allergies Allergy Verified 04/11/23 05:32 Review of Systems ROS Statement: Those systems with pertinent positive or pertinent negative responses have been documented in the HPI. ROS Other: All systems not noted in ROS Statement are negative. Limitations: ROS unobtainable due to patients medical condition (Poor historian) Constitutional: Denies: fever, weakness Eyes: Denies: vision change Respiratory: Denies: cough, dyspnea Cardiovascular: Denies: chest pain Gastrointestinal: Denies: abdominal pain, vomiting, diarrhea Genitourinary: Denies: dysuria Musculoskeletal: Denies: back pain Skin: Denies: rash Neurological: Denies: headache, weakness, numbness Past Medical History Past Medical History: No Reported History, Unable to Obtain Additional Past Medical History / Comment(s): etoh History of Any Multi-Drug Resistant Organisms: None Reported Past Surgical History: Hernia Repair Past Anesthesia/Blood Transfusion Reactions: No Reported Reaction Past Psychological History: No Psychological Hx Reported Smoking Status: Current every day smoker Past Alcohol Use History: Abuse, Daily, Heavy Past Drug Use History: None Reported - Past Family History Family Family Medical History: No Reported History General Exam Limitations: no limitations General appearance: alert, appears intoxicated Head exam: Present: atraumatic, normocephalic Eye exam: Present: normal appearance. Absent: scleral icterus, conjunctival injection Neck exam: Present: normal inspection Respiratory exam: Present: normal lung sounds bilaterally. Absent: respiratory distress, wheezes, rales, rhonchi, stridor Cardiovascular Exam: Present: regular rate, normal rhythm, normal heart sounds. Absent: systolic murmur, diastolic murmur, rubs, gallop GI/Abdominal exam: Present: soft. Absent: distended, tenderness, guarding, rebound, rigid, mass Extremities exam: Present: normal inspection, normal capillary refill. Absent: pedal edema, calf tenderness Back exam: Present: normal inspection. Absent: CVA tenderness (R), CVA tenderness (L) Neurological exam: Present: alert Skin exam: Present: warm, dry, intact, normal color. Absent: rash Course Vital Signs 04/11/23 04/11/23 05:32 12:27 Temperature 98.2 F Pulse Rate 101 H 98 Respiratory 18 20 Rate Blood Pressure 167/78 108/63 O2 Sat by Pulse 95 98 Oximetry Medical Decision Making - Medical Decision Making Patient is 57-year-old man found very intoxicated in public and brought here for evaluation. Patient be admitted for impending DTs. Was pt. sent in by a medical professional or institution (, PA, [employer], urgent care, hospital, or senior living...) When possible be specific @ -[No] Did you speak to anyone other than the patient for history (EMS, parent, family, police, friend...)? What history was obtained from this source @ -[No] Did you review nursing and triage notes (agree or disagree)? Why? @ -[I reviewed and agree with nursing and triage notes] Were old charts reviewed (outside hosp., previous admission, EMS record, old EKG, old radiological studies, urgent care reports/EKG's, senior living records)? Report findings @ -[No old charts were reviewed] Differential Diagnosis (chest pain, altered mental status, abdominal pain women, abdominal pain men, vaginal bleeding, weakness, fever, dyspnea, syncope, headache, dizziness, GI bleed, back pain, seizure, CVA, palpatations, mental health, musculoskeletal)? @ -[Differential Altered Mental Status: Hypoglycemia, DKA, hypercapnia, ETOH, overdose, CO poisoning, trauma, myxedema coma, HTN encephalopathy, infection, encephalitis, psychosis, intercranial hemorrhage, hepatic encephalopathy, meningitis, CVA, this is not meant to be an all-inclusive list EKG interpreted by me (3pts min.). @ -[As above] X-rays interpreted by me (1pt min.). @ -[None done] CT interpreted by me (1pt min.). @ -[None done] U/S interpreted by me (1pt. min.). @ -[None done] What testing was considered but not performed or refused? (CT, X-rays, U/S, labs)? Why? @ -[None] What meds were considered but not given or refused? Why? @ -[None] Did you discuss the management of the patient with other professionals (professionals i.e. , PA, [employer], lab, RT, psych nurse, social service director, workday consultant, teacher, restoration officer, case maker)? Give summary @ -[Case discussed with admitting physician Was smoking cessation discussed for >3mins.? @ -[No] Was critical care preformed (if so, how long)? @ -[No] Were there social determinants of health that impacted care today? How? (Ho melessness, low income, unemployed, alcoholism, drug addiction, transportation, low edu. Level, literacy, decrease access to med. care, [facility] [facility], rehab)? @ -[No] Was there de-escalation of care discussed even if they declined (Discuss DNR or withdrawal of care, Hospice)? DNR status @ -[No] What co-morbidities impacted this encounter? (DM, HTN, Smoking, COPD, CAD, Cancer, CVA, ARF, Chemo, Hep., AIDS, mental health diagnosis, sleep apnea, morbid obesity)? @ -[None] Was patient admitted / discharged? Hospital course, mention meds given and route, prescriptions, significant lab abnormalities, going to OR and other pertinent info. @ -[Patient admitted with coverage for impending DTs Undiagnosed new problem with uncertain prognosis? @ -[No] Drug Therapy requiring intensive monitoring for toxicity (Heparin, Nitro, Insulin, Cardizem)? @ -[No] Were any procedures done? @ -[No] Diagnosis/symptom? @ -[Acute alcohol intoxication Impending delirium tremens Acute, or Chronic, or Acute on Chronic? @ -[Acute Uncomplicated (without systemic symptoms) or Complicated (systemic symptoms)? @ -[default] Side effects of treatment? @ -[No] Exacerbation, Progression, or Severe Exacerbation? @ -[No] Poses a threat to life or bodily function? How? (Chest pain, USA, OR, pneumonia, PE, COPD, DKA, ARF, appy, cholecystitis, CVA, Diverticulitis, Homicidal, Suicidal, threat to staff... and all critical care pts) @ -[Yes patient's experiencing delirium tremens have significant risk of mortality if untreated - Lab Data Result diagrams: 04/11/23 05:51 04/11/23 05:51 Lab Results 04/11/23 04/11/23 Range/Units 05:51 05:51 WBC 13.0 H (3.8-10.6) k/uL RBC 5.10 (4.30-5.90) m/uL Hgb 16.9 (13.0-17.5) gm/dL Hct 50.5 (39.0-53.0) % MCV 99.0 (80.0-100.0) fL MCH 33.2 (25.0-35.0) pg MCHC 33.5 (31.0-37.0) g/dL RDW 15.1 (11.5-15.5) % Plt Count 284 (150-450) k/uL MPV 7.4 Neutrophils % 72 % Lymphocytes % 17 % Monocytes % 7 % Eosinophils % 2 % Basophils % 1 % Neutrophils # 9.3 H (1.3-7.7) k/uL Lymphocytes # 2.2 (1.0-4.8) k/uL Monocytes # 0.9 (0-1.0) k/uL Eosinophils # 0.2 (0-0.7) k/uL Basophils # 0.1 (0-0.2) k/uL Macrocytosis Slight Sodium 141 (137-145) mmol/L Potassium 4.5 (3.5-5.1) mmol/L Chloride 108 H (98-107) mmol/L Carbon Dioxide 19 L (22-30) mmol/L Anion Gap 14 mmol/L BUN 10 (9-20) mg/dL Creatinine 0.54 L (0.66-1.25) mg/dL Est GFR (CKD-EPI)AfAm >90 (>60 ml/min/1.73 sqM) Est GFR (CKD-EPI)NonAf >90 (>60 ml/min/1.73 sqM) Glucose 114 H (74-99) mg/dL Calcium 9.1 (8.4-10.2) mg/dL Total Bilirubin 0.5 (0.2-1.3) mg/dL AST 34 (17-59) U/L ALT 20 (4-49) U/L Alkaline Phosphatase 195 H (38-126) U/L Total Protein 8.2 (6.3-8.2) g/dL Albumin 4.4 (3.5-5.0) g/dL Serum Alcohol 346 H* mg/dL Disposition Clinical Impression: Alcoholic intoxication Disposition: ADMITTED IP TO THIS HOSP Condition: Fair Is patient prescribed a controlled substance at d/c from ED?: No
[2023-04-11 06:40] LABS: Basophils # (A) 0.1 k/uL (0-0.2); Basophils % (A) 1 %; Eosinophils # (A) 0.2 k/uL (0-0.7); Eosinophils % (A) 2 %; HCT 50.5 % (39.0-53.0); HGB 16.9 gm/dL (13.0-17.5); Lymphocytes # (A) 2.2 k/uL (1.0-4.8); Lymphocytes % (A) 17 %; MCH 33.2 pg (25.0-35.0); MCHC 33.5 g/dL (31.0-37.0); Macrocytosis Slight; Mean Platelet Volume 7.4; Monocytes # (A) 0.9 k/uL (0-1.0); Monocytes % (A) 7 %; Neutrophils # (A) 9.3 k/uL (1.3-7.7); Neutrophils % (A) 72 %; Platelet Count 284 k/uL (150-450); RDW 15.1 % (11.5-15.5)
[2023-04-11 06:46] LABS: ALT 20 U/L (4-49); AST 34 U/L (17-59); African American GFR (CKD) >90 (>60 ml/min/1.73 sqM); Albumin 4.4 g/dL (3.5-5.0); Alkaline Phosphatase 195 U/L (38-126); Anion Gap 14 mmol/L; Blood Urea Nitrogen 10 mg/dL (9-20); Calcium 9.1 mg/dL (8.4-10.2); Carbon Dioxide 19 mmol/L (22-30); Chloride 108 mmol/L (98-107); Glucose 114 mg/dL (74-99); Non-African American GFR(CKD) >90 (>60 ml/min/1.73 sqM); Potassium 4.5 mmol/L (3.5-5.1); Sodium 141 mmol/L (137-145); Total Bilirubin 0.5 mg/dL (0.2-1.3); Total Protein 8.2 g/dL (6.3-8.2)
[2023-04-11 06:58] LABS: Alcohol 346 mg/dL
[2023-04-11] MEDS ORDERED: ACETAMINOPHEN TAB 325 MG TAB PO PRN (07:06)
[2023-04-11] MEDS ORDERED: NALOXONE 0.4 MG/ML 1 ML VIAL IV PRN (07:06)
[2023-04-11] MEDS ORDERED: LORazepam 1 MG TAB PO PRN (07:25)
[2023-04-11] MEDS ORDERED: THIAMINE 100 MG/ML 2 ML VIAL IM STA (07:25)
[2023-04-11] MEDS ORDERED: LORazepam 2 MG/ML INJ IV PRN ×3 (07:25)
--- NOTE | 2023-04-11 15:27 | P.HPIM ---
History of Present Illness H&P Date: 04/11/23 Patient is a 57-year-old male with history of alcohol dependence presenting with alcohol intoxication. Patient is a poor historian. He claims that he drinks alcohol out of the chart, unable to verbalize what kind. He is unable to verbalize how much alcohol but drinks daily. He also smokes, unable to verbalize how much. Denies any illicit drug use. In the ED, temperature was 98.2, pulse 101, blood pressure 167/78, respiratory rate 18, saturating at 95% on room air. Laboratory workup showed WBC 13, potassium 4.5, bicarb 19, creatinine 0.54, serum alcohol 346. Patient admitted for alcohol detox and impending withdrawal. Pertinent positives and negatives as discussed in HPI, a complete review of systems was performed and all other systems are negative. Patient seen and examined at bedside. Vital signs reviewed General: nontoxic, no distress, appears at stated age Derm: warm, dry Head: atraumatic, normocephalic, symmetric Eyes: EOMI, no lid lag, anicteric sclera, pupils equal round reactive to light ENT: Nose and ears atraumatic Neck: No thyromegaly, supple Mouth: no lip lesion, mucus membranes moist Cardiovascular: S1S2 reg, no murmur, no edema Lungs: clear to auscultation bilateral, no rhonchi, no rales, no wheeze, no accessory muscle use Abdominal: soft, nontender to palpation, no guarding, no appreciable organomegaly Ext: no gross muscle atrophy, muscle strength muscle strength 5 out of 5 in all 4 extremities, no contractures Neuro: CN II-XII grossly intact Psych: intoxicated, oriented, appropriate affect Assessment/Plan: Active: Acute alcohol intoxication Alcohol dependence, impending withdrawal Nicotine dependence Dehydration Leukocytosis -IV fluids normal saline at 1 30 mL an hour -Thiamine 100 mg daily -Ativan as needed based on CIWA score -Seizure precautions -Repeat labs tomorrow The patient is admitted with an anticipated less than 2 midnight stay as observation status for evaluation of alcohol intoxication. Surrogate decision-maker: None listed CODE STATUS: Full code DVT prophylaxis: SCD Anticipated discharge date: 1-[address]: Pending clinical course A total of 55 minutes was spent on the care of this complex patient more than 50% of the time was spent in counseling and care coordination. Past Medical History Past Medical History: No Reported History, Unable to Obtain Additional Past Medical History / Comment(s): etoh History of Any Multi-Drug Resistant Organisms: None Reported Past Surgical History: Hernia Repair Past Anesthesia/Blood Transfusion Reactions: No Reported Reaction Past Psychological History: No Psychological Hx Reported Smoking Status: Current every day smoker Past Alcohol Use History: Abuse, Daily, Heavy Past Drug Use History: None Reported - Past Family History Family Family Medical History: No Reported History Medications and Allergies Home Medications Medication Instructions Recorded Confirmed Type No Known Home Medications 04/30/22 04/11/23 History Allergies Allergy/AdvReac Type Severity Reaction Status Date / Time No Known Allergies Allergy Verified 04/11/23 05:32 Physical Exam Vitals: Vital Signs Temp Pulse Resp BP Pulse Ox 04/11/23 12:27 98 20 108/63 98 04/11/23 05:32 98.2 F 101 H 18 167/78 95 Intake and Output 04/11/23 04/11/23 04/11/23 06:59 14:59 22:59 Other: Weight 63.503 kg Results CBC & Chem 7: 04/11/23 05:51 04/11/23 05:51 Labs: Abnormal Lab Results - Last 24 Hours (Table) 04/11/23 04/11/23 Range/Units 05:51 05:51 WBC 13.0 H (3.8-10.6) k/uL Neutrophils # 9.3 H (1.3-7.7) k/uL Chloride 108 H (98-107) mmol/L Carbon Dioxide 19 L (22-30) mmol/L Creatinine 0.54 L (0.66-1.25) mg/dL Glucose 114 H (74-99) mg/dL Alkaline Phosphatase 195 H (38-126) U/L Serum Alcohol 346 H* mg/dL
[2023-04-11] MEDS ORDERED: SODIUM CHLORIDE 0.9% 1,000 ML IV SCH (15:30)
[2023-04-11 16:25] VITALS: BP 128/75; PULSE 92; RESP 16; TEMP 98.8
[2023-04-12] MEDS ORDERED: THIAMINE 100 MG TAB PO SCH (09:00)
--- NOTE | 2023-04-12 15:28 | P.DS ---
Providers Date of admission: 04/11/23 07:07 Expected date of discharge: 04/12/23 Attending physician: Ashley Mares MD Primary care physician: Stated None Hospital Course: Patient left AMA without being seen today on 04/12 Patient Condition at Discharge: Undetermined Plan - Discharge Summary Discharge Rx Participant: No New Discharge Prescriptions: No Action No Known Home Medications Discharge Medication List No Known Home Medications 04/30/22 [History] Follow up Appointment(s)/Referral(s): None,Stated [Primary Care Provider] - 1-2 days Discharge Disposition: LEFT AGAINST MEDICAL ADVICE
== END 2023-04-11 20:05 | disposition left against medical advice (07) ==
LOC: EC 05:28 → 6NMEDSUR 07:07
PROVIDERS: ADMIT Internal Medicine; ATTEND Internal Medicine
DX: F10.229 Alcohol dependence with intoxication, unspecified (principal); F10.239 Alcohol dependence with withdrawal, unspecified; Z53.29 Procedure and treatment not carried out because of patient's decision for other reasons; E86.0 Dehydration; F17.200 Nicotine dependence, unspecified, uncomplicated; Y90.8 Blood alcohol level of 240 mg/100 ml or more
CPT/HCPCS: 96372; 99285; 36415; 80053; 85025; G0378; G0480; J3411; 80320

== ENCOUNTER 2023-04-25 05:21 | Emergency (ER) | payer OTHER ==
[2023-04-25 05:26] VITALS: RESP 18
--- NOTE | 2023-04-25 06:32 | ED ---
General Adult HPI - General Chief complaint: Anxiety Stated complaint: Anxiety Time Seen by Provider: 04/25/23 06:20 Source: patient, RN notes reviewed, old records reviewed Mode of arrival: ambulatory Limitations: no limitations, altered mental status (appears intoxicated) - History of Present Illness Initial comments: 57-year-old male patient smells of alcohol will not answer any questions. Patient chief complaint per triage is anxiety. Vital signs are stable. Patient does have a history of EtOH abuse. - Related Data Home Medications Medication Instructions Recorded Confirmed No Known Home Medications 04/30/22 04/11/23 Allergies Allergy/AdvReac Type Severity Reaction Status Date / Time No Known Allergies Allergy Verified 04/11/23 05:32 Review of Systems ROS Statement: Those systems with pertinent positive or pertinent negative responses have been documented in the HPI. ROS Other: All systems not noted in ROS Statement are negative. Past Medical History Past Medical History: No Reported History, Unable to Obtain Additional Past Medical History / Comment(s): etoh History of Any Multi-Drug Resistant Organisms: None Reported Past Surgical History: Hernia Repair Past Anesthesia/Blood Transfusion Reactions: No Reported Reaction Past Psychological History: No Psychological Hx Reported Smoking Status: Current every day smoker Past Alcohol Use History: Abuse, Daily, Heavy Past Drug Use History: Marijuana - Past Family History Family Family Medical History: No Reported History General Exam Limitations: no limitations, altered mental status (will not answer any questions) General appearance: alert, appears intoxicated Head exam: Present: atraumatic, normocephalic, normal inspection Eye exam: Absent: scleral icterus, periorbital swelling, periorbital tenderness Pupils: Present: miosis (pinpoint) ENT exam: Present: mucous membranes moist Neck exam: Present: full ROM. Absent: tenderness, meningismus Respiratory exam: Absent: respiratory distress, accessory muscle use Cardiovascular Exam: Present: regular rate GI/Abdominal exam: Present: soft. Absent: distended, tenderness, guarding, rebound, rigid Extremities exam: Present: other (blisters to bottoms of both feet). Absent: pedal edema Back exam: Present: full ROM. Absent: tenderness Neurological exam: Present: alert (person only) Psychiatric exam: Present: normal affect, normal mood Skin exam: Present: warm, dry. Absent: cyanosis, diaphoretic, petechiae, pallor Course Vital Signs 04/25/23 04/25/23 05:21 14:43 Temperature 97.7 F 97.9 F Pulse Rate 61 67 Respiratory 18 Rate Blood Pressure 128/80 125/64 O2 Sat by Pulse 97 96 Oximetry Medical Decision Making - Medical Decision Making Was pt. sent in by a medical professional or institution (, JATINDER, ELECTRONIC PLOTTING SYSTEM OPERATOR, urgent care, hospital, or retirement...) When possible be specific @ -No Did you speak to anyone other than the patient for history (EMS, parent, family, police, friend...)? What history was obtained from this source @ -No Did you review nursing and triage notes (agree or disagree)? Why? @ -I reviewed and agree with nursing and triage notes Were old charts reviewed (outside hosp., previous admission, EMS record, old EKG, old radiological studies, urgent care reports/EKG's, retirement records)? Report findings @ -yes multiple ER visits for acute intoxication Differential Diagnosis (chest pain, altered mental status, abdominal pain women, abdominal pain men, vaginal bleeding, weakness, fever, dyspnea, syncope, headache, dizziness, GI bleed, back pain, seizure, CVA, palpatations, mental health, musculoskeletal)? @ -Differential Altered Mental Status: Hypoglycemia, DKA, hypercapnia, ETOH, overdose, CO poisoning, trauma, myxedema coma, HTN encephalopathy, infection, encephalitis, psychosis, intercranial hemorrhage, hepatic encephalopathy, meningitis, CVA, this is not an all- inclusive list EKG interpreted by me (3pts min.). @ -n/a X-rays interpreted by me (1pt min.). @ -None done CT interpreted by me (1pt min.). @ -yes CT OF THE BRAIN performed. INTERPRETED BY ME SHOWING NO EVIDENCE OF INTRACRANIAL BLEED, MASS OR FRACTURES. NO MIDLINE SHIFT. U/S interpreted by me (1pt. min.). @ -None done What testing was considered but not performed or refused? (CT, X-rays, U/S, labs)? Why? @ -None What meds were considered but not given or refused? Why? @ -None Did you discuss the management of the patient with other professionals (professionals i.e. JATINDER Wilson, ELECTRONIC PLOTTING SYSTEM OPERATOR, lab, RT, psych nurse, social work professor, amusement centre manager, teacher, disbursing officer, case sealer)? Give summary @ -No Was smoking cessation discussed for >3mins.? @ -No Was critical care preformed (if so, how long)? @ -No Were there social determinants of health that impacted care today? How? (Homelessness, low income, unemployed, alcoholism, drug addiction, transportation, low edu. Level, literacy, decrease access to med. care, [facility], rehab)? @ -No Was there de-escalation of care discussed even if they declined (Discuss DNR or withdrawal of care, Hospice)? DNR status @ -No What co-morbidities impacted this encounter? (DM, HTN, Smoking, COPD, CAD, Cancer, CVA, ARF, Chemo, Hep., AIDS, mental health diagnosis, sleep apnea, morbid obesity)? @ -Alcohol abuse Was patient admitted / discharged? Hospital course, mention meds given and route, prescriptions, significant lab abnormalities, going to OR and other pertinent info. @ -Discharged 57-year-old male patient smells of alcohol will not answer any questions. Patient chief complaint per triage is anxiety. Vital signs are stable. Patient does have a history of EtOH abuse. Seen multiple times in the emergency room for this. CBC and electrolytes are unremarkable. Blood alcohol level 198, urine positive for marijuana. Due to patient's altered mental status upon arrival and acute intoxication CT OF THE BRAIN performed. INTERPRETED BY ME SHOWING NO EVIDENCE OF INTRACRANIAL BLEED, MASS OR FRACTURES. NO MIDLINE SHIFT. RADIOLOGIST INTERPRETATION NO ACUTE INTRACRANIAL ABNORMALITY SEEN. OLD NASAL BONE FRACTURES NOTED. Patient slept in the emergency room for several hours was up and ambulatory with steady gait. Ready to be discharged home. Denies any suicidal or homicidal ideation. Not interested in detox. Case discussed with Dr. Hood. Undiagnosed new problem with uncertain prognosis? @ -No Drug Therapy requiring intensive monitoring for toxicity (Heparin, Nitro, Insulin, Cardizem)? @ -No Were any procedures done? @ -No Diagnosis/symptom? @ -Acute alcohol intoxication Acute, or Chronic, or Acute on Chronic? @ -Acute Uncomplicated (without systemic symptoms) or Complicated (systemic symptoms)? @ -Uncomplicated Side effects of treatment? @ -No Exacerbation, Progression, or Severe Exacerbation? @ -No Poses a threat to life or bodily function? How? (Chest pain, [place], [place], pneumonia, PE, COPD, DKA, ARF, appy, cholecystitis, CVA, Diverticulitis, Homicidal, Suicidal, threat to staff... and all critical care pts) @ -No - Lab Data Result diagrams: 04/25/23 08:34 04/25/23 08:34 Lab Results 04/25/23 04/25/23 04/25/23 Range/Units 07:50 08:34 08:34 WBC 7.0 (3.8-10.6) k/uL RBC 4.82 (4.30-5.90) m/uL Hgb 16.3 (13.0-17.5) gm/dL Hct 49.2 (39.0-53.0) % MCV 102.1 H (80.0-100.0) fL MCH 33.8 (25.0-35.0) pg MCHC 33.1 (31.0-37.0) g/dL RDW 15.5 (11.5-15.5) % Plt Count 272 (150-450) k/uL MPV 7.4 Neutrophils % 51 % Lymphocytes % 33 % Monocytes % 7 % Eosinophils % 6 % Basophils % 1 % Neutrophils # 3.6 (1.3-7.7) k/uL Lymphocytes # 2.3 (1.0-4.8) k/uL Monocytes # 0.5 (0-1.0) k/uL Eosinophils # 0.4 (0-0.7) k/uL Basophils # 0.1 (0-0.2) k/uL Macrocytosis Slight PT 10.9 (9.0-12.0) sec INR 1.0 (<1.2) APTT 26.3 (22.0-30.0) sec Sodium (137-145) mmol/L Potassium (3.5-5.1) mmol/L Chloride (98-107) mmol/L Carbon Dioxide (22-30) mmol/L Anion Gap mmol/L BUN (9-20) mg/dL Creatinine (0.66-1.25) mg/dL Est GFR (CKD-EPI)AfAm (>60 ml/min/1.73 sqM) Est GFR (CKD-EPI)NonAf (>60 ml/min/1.73 sqM) Glucose (74-99) mg/dL POC Glucose (mg/dL) (70-110) mg/dL POC Glu Gas Transfer Operator ID Calcium (8.4-10.2) mg/dL Total Bilirubin (0.2-1.3) mg/dL AST (17-59) U/L ALT (4-49) U/L Alkaline Phosphatase (38-126) U/L Total Protein (6.3-8.2) g/dL Albumin (3.5-5.0) g/dL Urine Opiates Screen Not Detected (NotDetected) Ur Oxycodone Screen Not Detected (NotDetected) Urine Methadone Screen Not Detected (NotDetected) Ur Propoxyphene Screen Not Detected (NotDetected) Ur Barbiturates Screen Not Detected (NotDetected) U Tricyclic Antidepress Not Detected (NotDetected) Ur Phencyclidine Scrn Not Detected (NotDetected) Ur Amphetamines Screen Not Detected (NotDetected) U Methamphetamines Scrn Not Detected (NotDetected) U Benzodiazepines Scrn Not Detected (NotDetected) Urine Cocaine Screen Not Detected (NotDetected) U Marijuana (THC) Screen Detected H (NotDetected) Serum Alcohol mg/dL 04/25/23 04/25/23 Range/Units 08:34 08:35 WBC (3.8-10.6) k/uL RBC (4.30-5.90) m/uL Hgb (13.0-17.5) gm/dL Hct (39.0-53.0) % MCV (80.0-100.0) fL MCH (25.0-35.0) pg MCHC (31.0-37.0) g/dL RDW (11.5-15.5) % Plt Count (150-450) k/uL MPV Neutrophils % % Lymphocytes % % Monocytes % % Eosinophils % % Basophils % % Neutrophils # (1.3-7.7) k/uL Lymphocytes # (1.0-4.8) k/uL Monocytes # (0-1.0) k/uL Eosinophils # (0-0.7) k/uL Basophils # (0-0.2) k/uL Macrocytosis PT (9.0-12.0) sec INR (<1.2) APTT (22.0-30.0) sec Sodium 142 (137-145) mmol/L Potassium 4.3 (3.5-5.1) mmol/L Chloride 110 H (98-107) mmol/L Carbon Dioxide 24 (22-30) mmol/L Anion Gap 8 mmol/L BUN 4 L (9-20) mg/dL Creatinine 0.63 L (0.66-1.25) mg/dL Est GFR (CKD-EPI)AfAm >90 (>60 ml/min/1.73 sqM) Est GFR (CKD-EPI)NonAf >90 (>60 ml/min/1.73 sqM) Glucose 78 (74-99) mg/dL POC Glucose (mg/dL) 81 (70-110) mg/dL POC Glu Gas Transfer Operator ID Miguel Kaye Calcium 8.8 (8.4-10.2) mg/dL Total Bilirubin 0.5 (0.2-1.3) mg/dL AST 32 (17-59) U/L ALT 20 (4-49) U/L Alkaline Phosphatase 141 H (38-126) U/L Total Protein 6.9 (6.3-8.2) g/dL Albumin 3.7 (3.5-5.0) g/dL Urine Opiates Screen (NotDetected) Ur Oxycodone Screen (NotDetected) Urine Methadone Screen (NotDetected) Ur Propoxyphene Screen (NotDetected) Ur Barbiturates Screen (NotDetected) U Tricyclic Antidepress (NotDetected) Ur Phencyclidine Scrn (NotDetected) Ur Amphetamines Screen (NotDetected) U Methamphetamines Scrn (NotDetected) U Benzodiazepines Scrn (NotDetected) Urine Cocaine Screen (NotDetected) U Marijuana (THC) Screen (NotDetected) Serum Alcohol 198 mg/dL Disposition Clinical Impression: ETOH abuse, Alcoholic intoxication Disposition: HOME SELF-CARE Condition: Good Instructions (If sedation given, give patient instructions): Generalized Anxiety Disorder (ED), Alcohol Intoxication (ED), Abuse of Alcohol (ED) Additional Instructions: Stop drinking alcohol in excess, it will kill you. Follow-up with your primary care doctor regarding your anxiety issues. Is patient prescribed a controlled substance at d/c from ED?: No Referrals: None,Stated [Primary Care Provider] - 1-2 days
--- NOTE | 2023-04-25 08:25 | CT ---
EXAMINATION TYPE: CT brain wo con DATE OF EXAM: 04/25/2023 COMPARISON: 04/08/2023 HISTORY: 57-year-old male confusion, Altered mental status TECHNIQUE: Examination was done in axial plane without intravenous contrast. Coronal and sagittal r econstructions performed. CT DLP: 1159.4 mGycm Automated exposure control for dose reduction was used. FINDINGS: There is no evidence of acute intracranial hemorrhage, acute ischemic changes, mass, mass-effect, or extra-axial fluid collection. There is no effacement of cerebral sulci or basal subarachnoid cister ns. There is no hydrocephalus. There is no midline shift. Mohr-white matter distinction is preserv ed. Old angulated nasal bone fracture deformities. Leftward nasal septal deviation. Trace mucosal thicken ing ethmoid air cells. Mastoid air cells well pneumatized. Orbits and globes are intact. IMPRESSION: No acute intracranial abnormality seen. Old nasal bone fractures.
[2023-04-25 08:28] LABS: Urn Cannabinoid Scrn Detected (NotDetected)
[2023-04-25 08:29] LABS: Amphetamine Screen,Urine Not Detected (NotDetected); Barbiturate Screen,Urine Not Detected (NotDetected); Benzodiazepines Screen,Urine Not Detected (NotDetected); Cocaine Screen,Urine Not Detected (NotDetected); Methadone Screen, Urine Not Detected (NotDetected); Opiate Screen,Urine Not Detected (NotDetected); Oxycodone Screen, Urine Not Detected (NotDetected); Phencyclidine Screen,Urine Not Detected (NotDetected); Tricyclic Antidepressant,Urine Not Detected (NotDetected)
[2023-04-25 08:37] LABS: Glucose,Whole Blood 81 mg/dL (70-110)
[2023-04-25 08:46] LABS: Basophils # (A) 0.1 k/uL (0-0.2); Basophils % (A) 1 %; Eosinophils # (A) 0.4 k/uL (0-0.7); Eosinophils % (A) 6 %; HCT 49.2 % (39.0-53.0); HGB 16.3 gm/dL (13.0-17.5); Lymphocytes # (A) 2.3 k/uL (1.0-4.8); Lymphocytes % (A) 33 %; MCH 33.8 pg (25.0-35.0); MCHC 33.1 g/dL (31.0-37.0); MCV 102.1 fL (80.0-100.0); Macrocytosis Slight; Mean Platelet Volume 7.4; Monocytes # (A) 0.5 k/uL (0-1.0); Monocytes % (A) 7 %; Neutrophils # (A) 3.6 k/uL (1.3-7.7); Neutrophils % (A) 51 %; Platelet Count 272 k/uL (150-450); RBC 4.82 m/uL (4.30-5.90); RDW 15.5 % (11.5-15.5)
[2023-04-25 08:54] LABS: Partial Thromboplastin Time 26.3 sec (22.0-30.0); Prothrombin Time 10.9 sec (9.0-12.0)
[2023-04-25 08:56] LABS: ALT 20 U/L (4-49); AST 32 U/L (17-59); African American GFR (CKD) >90 (>60 ml/min/1.73 sqM); Albumin 3.7 g/dL (3.5-5.0); Alkaline Phosphatase 141 U/L (38-126); Anion Gap 8 mmol/L; Blood Urea Nitrogen 4 mg/dL (9-20); Calcium 8.8 mg/dL (8.4-10.2); Carbon Dioxide 24 mmol/L (22-30); Chloride 110 mmol/L (98-107); Glucose 78 mg/dL (74-99); Non-African American GFR(CKD) >90 (>60 ml/min/1.73 sqM); Potassium 4.3 mmol/L (3.5-5.1); Sodium 142 mmol/L (137-145); Total Bilirubin 0.5 mg/dL (0.2-1.3); Total Protein 6.9 g/dL (6.3-8.2)
[2023-04-25 09:05] LABS: Alcohol 198 mg/dL
[2023-04-25 14:46] VITALS: BP 125/64; PULSE 67; TEMP 97.9
== END 2023-04-25 14:55 | disposition home or self-care (01) ==
LOC: EC 05:21
DX: F10.129 Alcohol abuse with intoxication, unspecified (principal); Y90.6 Blood alcohol level of 120-199 mg/100 ml; F17.200 Nicotine dependence, unspecified, uncomplicated; F12.90 Cannabis use, unspecified, uncomplicated
CPT/HCPCS: 36415; 80053; 85025; 85610; 85730; 80306; 70450; 99284; G0480; 80320

== ENCOUNTER 2023-04-30 22:40 | Observation (INO) | payer OTHER ==
[2023-04-30] MEDS ORDERED: HALOPERIDOL LACTATE 5 MG/ML 1 ML VIAL IM STA (22:46)
--- NOTE | 2023-04-30 22:51 | ED ---
General Adult HPI - General Stated complaint: ETOH Time Seen by Provider: 04/30/23 22:46 - History of Present Illness Initial comments: Dictation was produced using [employer] dictation software. please excuse any grammatical, word or spelling errors. Chief Complaint: 57-year-old male presents emergency department for alcohol intoxication History of Present Illness: Is 57-year-old male who has past medical history alcoholism. Patient is known to our ER for alcoholism. Patient was brought in by EMS after disturbing the neighborhood nearby. Patient's poor historian. Patient yelling obscenities to our staff. He is uncooperative. Unable to obtain ROS secondary to mental status. - Related Data Home Medications Medication Instructions Recorded Confirmed No Known Home Medications 04/30/22 04/11/23 Allergies Allergy/AdvReac Type Severity Reaction Status Date / Time No Known Allergies Allergy Verified 04/11/23 05:32 Review of Systems ROS Statement: Those systems with pertinent positive or pertinent negative responses have been documented in the HPI. ROS Other: All systems not noted in ROS Statement are negative. Past Medical History Past Medical History: No Reported History, Unable to Obtain Additional Past Medical History / Comment(s): etoh History of Any Multi-Drug Resistant Organisms: None Reported Past Surgical History: Hernia Repair Past Anesthesia/Blood Transfusion Reactions: No Reported Reaction Past Psychological History: No Psychological Hx Reported Smoking Status: Current every day smoker Past Alcohol Use History: Abuse, Daily, Heavy Past Drug Use History: Marijuana - Past Family History Family Family Medical History: No Reported History General Exam - General Exam Comments Initial Comments: PHYSICAL EXAM: General Impression: Inebriated, uncooperative, combative, restrained HEENT: Normocephalic atraumatic, extra-ocular movements intact, pupils equal and reactive to light bilaterally, mucous membranes moist. Cardiovascular: Heart regular rate and rhythm Chest: no retractions, no tachypnea Abdomen: abdomen soft, non-distended, no organomegaly Musculoskeletal: no peripheral edema Motor: no focal deficits noted Neurological: CN II-XII grossly intact, no focal motor or sensory deficits noted Skin: Intact with no visualized rashes Course Vital Signs 04/30/23 04/30/23 22:54 23:57 Temperature 98.7 F Pulse Rate 97 86 Respiratory 16 18 Rate Blood Pressure 136/98 O2 Sat by Pulse 98 98 Oximetry Procedures - Restraint - Face to Face Restraint Occurrence 1 Patient's Immediate Situation: Endangers self safety, Endangers others' safety Patient's Reaction to the Intervention: Angry Patient's Medical & Behavioral Condition: Agitated Need to Continue or Terminate Restraint or Seclusion: Continue Face to Face Eval of Restraint Date: 04/30/23 Face to Face Eval of Restraint Time: 22:40 Medical Decision Making - Medical Decision Making Was pt. sent in by a medical professional or institution (, PA, AUDIT PRACTICE INTERN, urgent care, hospital, or penitentiary...) When possible be specific @ -No Did you speak to anyone other than the patient for history (EMS, parent, family, police, friend...)? What history was obtained from this source @ -States patient's drunk and disruptive Did you review nursing and triage notes (agree or disagree)? Why? @ -I reviewed and agree with nursing and triage notes Were old charts reviewed (outside hosp., previous admission, EMS record, old EKG, old radiological studies, urgent care reports/EKG's, penitentiary records)? Report findings @ -No old charts were reviewed Differential Diagnosis (chest pain, altered mental status, abdominal pain women, abdominal pain men, vaginal bleeding, musculoskeletal, weakness, fever, dyspnea, syncope, headache, dizziness, GI bleed, back pain, seizure, CVA, palpatations, mental health)? @ -Differential Altered Mental Status: Hypoglycemia, DKA, hypercapnia, ETOH, overdose, CO poisoning, trauma, myxedema coma, HTN encephalopathy, infection, encephalitis, psychosis, intercranial hemorrhage, hepatic encephalopathy, meningitis, CVA, this is not meant to be an all-inclusive list EKG interpreted by me (3pts min.). @ -None done X-rays interpreted by me (1pt min.). @ -None done CT interpreted by me (1pt min.). @ -None done U/S interpreted by me (1pt. min.). @ -None done What testing was considered but not performed or refused? (CT, X-rays, U/S, labs)? Why? @ -None What meds were considered but not given or refused? Why? @ -None Did you discuss the management of the patient with other professionals (professionals i.e. , PA, AUDIT PRACTICE INTERN, lab, RT, psych nurse, director of social work, cash sales audit clerk, teacher, biosecurity officer, rifle case repairer)? Give summary @ -No Was smoking cessation discussed for >3mins.? @ -No Was critical care preformed (if so, how long)? @ -No Were there social determinants of health that impacted care today? How? (Homelessness, low income, unemployed, alcoholism, drug addiction, transportation, low edu. Level, literacy, decrease access to med. care, [facility], rehab)? @ -No Was there de-escalation of care discussed even if they declined (Discuss DNR or withdrawal of care, Hospice)? DNR status @ -No What co-morbidities impacted this encounter? (DM, HTN, Smoking, COPD, CAD, Cancer, CVA, ARF, Chemo, Hep., AIDS, mental health diagnosis, sleep apnea, morbid obesity)? @ -None Was patient admitted / discharged? Hospital course, mention meds given and route, prescriptions, significant lab abnormalities, going to OR and other pertinent info. @ -[id number] male presents with alcohol intoxication disturbing behavior. Vital signs stable. Patient disruptive upon initial arrival. Required 4 point restraints. Patient given Haldol for chemical sedation Laboratory evaluation obtained. Serum alcohol is 396. No acidosis. Patient will be admitted observation for EtOH intoxication. Undiagnosed new problem with uncertain prognosis? @ -No Drug Therapy requiring intensive monitoring for toxicity (Heparin, Nitro, Insuli n, Cardizem)? @ -No Were any procedures done? @ -No Diagnosis/symptom? Acute, or Chronic, or Acute on Chronic? Uncomplicated (without systemic symptoms) or Complicated (systemic symptoms)? @ -Alcohol intoxication Side effects of treatment? @ -No Exacerbation, Progression, or Severe Exacerbation? @ -No Poses a threat to life or bodily function? How? (Chest pain, [place], [place], pneumonia, PE, COPD, DKA, ARF, appy, cholecystitis, CVA, Diverticulitis, Homicidal, Suicidal, threat to staff... and all critical care pts) @ -yes - Lab Data Result diagrams: 04/30/23 23:11 04/30/23 23:11 Lab Results 04/30/23 04/30/23 Range/Units 23:11 23:11 WBC 7.4 (3.8-10.6) k/uL RBC 5.30 (4.30-5.90) m/uL Hgb 18.0 H (13.0-17.5) gm/dL Hct 54.7 H (39.0-53.0) % MCV 103.2 H (80.0-100.0) fL MCH 33.9 (25.0-35.0) pg MCHC 32.9 (31.0-37.0) g/dL RDW 15.4 (11.5-15.5) % Plt Count 291 (150-450) k/uL MPV 7.7 Neutrophils % 57 % Lymphocytes % 30 % Monocytes % 7 % Eosinophils % 2 % Basophils % 1 % Neutrophils # 4.2 (1.3-7.7) k/uL Lymphocytes # 2.2 (1.0-4.8) k/uL Monocytes # 0.5 (0-1.0) k/uL Eosinophils # 0.2 (0-0.7) k/uL Basophils # 0.1 (0-0.2) k/uL Macrocytosis Moderate Sodium 145 (137-145) mmol/L Potassium 5.1 (3.5-5.1) mmol/L Chloride 107 (98-107) mmol/L Carbon Dioxide 23 (22-30) mmol/L Anion Gap 15 mmol/L BUN 7 L (9-20) mg/dL Creatinine 0.59 L (0.66-1.25) mg/dL Est GFR (CKD-EPI)AfAm >90 (>60 ml/min/1.73 sqM) Est GFR (CKD-EPI)NonAf >90 (>60 ml/min/1.73 sqM) Glucose 117 H (74-99) mg/dL Calcium 9.2 (8.4-10.2) mg/dL Magnesium 2.2 (1.6-2.3) mg/dL Serum Alcohol 396 H* mg/dL Disposition Clinical Impression: Alcohol intoxication Disposition: ADMITTED IP TO THIS [facility] Condition: Fair Referrals: None,Stated [Primary Care Provider] - 1-2 days Decision Time: 01:28
[2023-05-01 00:32] LABS: Basophils # (A) 0.1 k/uL (0-0.2); Basophils % (A) 1 %; Eosinophils # (A) 0.2 k/uL (0-0.7); Eosinophils % (A) 2 %; HCT 54.7 % (39.0-53.0); Lymphocytes # (A) 2.2 k/uL (1.0-4.8); Lymphocytes % (A) 30 %; MCH 33.9 pg (25.0-35.0); MCHC 32.9 g/dL (31.0-37.0); MCV 103.2 fL (80.0-100.0); Macrocytosis Moderate; Mean Platelet Volume 7.7; Monocytes # (A) 0.5 k/uL (0-1.0); Monocytes % (A) 7 %; Neutrophils # (A) 4.2 k/uL (1.3-7.7); Neutrophils % (A) 57 %; Platelet Count 291 k/uL (150-450); RDW 15.4 % (11.5-15.5); WBC 7.4 k/uL (3.8-10.6)
[2023-05-01 01:20] LABS: African American GFR (CKD) >90 (>60 ml/min/1.73 sqM); Anion Gap 15 mmol/L; Blood Urea Nitrogen 7 mg/dL (9-20); Calcium 9.2 mg/dL (8.4-10.2); Carbon Dioxide 23 mmol/L (22-30); Chloride 107 mmol/L (98-107); Glucose 117 mg/dL (74-99); Magnesium 2.2 mg/dL (1.6-2.3); Non-African American GFR(CKD) >90 (>60 ml/min/1.73 sqM); Potassium 5.1 mmol/L (3.5-5.1); Sodium 145 mmol/L (137-145)
[2023-05-01 01:22] LABS: Alcohol 396 mg/dL
[2023-05-01] MEDS ORDERED: NALOXONE 0.4 MG/ML 1 ML VIAL IV PRN (01:25)
[2023-05-01] MEDS ORDERED: THIAMINE 100 MG/ML 2 ML VIAL IM STA (01:26)
[2023-05-01] MEDS ORDERED: LORazepam 2 MG/ML INJ IV PRN ×3 (01:26)
[2023-05-01] MEDS: SODIUM CHLORIDE 0.9% 1,000 ML IV SCH ×2 (01:41→12:26)
[2023-05-01 11:48] VITALS: BP 144/77; PULSE 81; RESP 16; TEMP 97.7
[2023-05-02] MEDS ORDERED: THIAMINE 100 MG TAB PO SCH (09:00)
--- NOTE | 2023-05-03 10:43 | P.HPIM ---
History of Present Illness H&P Date: 05/01/23 Chief Complaint: Alcohol intoxication 57-year-old male who has past medical history alcoholism. Patient is known to our ER for alcoholism. Patient was brought in by EMS after disturbing the neighborhood nearby. Patient's poor historian. Patient yelling obscenities to our staff. He is uncooperative. In the ED patient was placed in 4. restraints and was given Haldol for chemical sedation; serum alcohol level was 396; WBC 7.4, hemoglobin of 18.0 and platelet count 291, sodium 145, potassium 5.1, BUN/creatinine 7/0.59 and blood glucose of 117 - Patient is being admitted to the hospital for alcohol intoxication Review of Systems ROS unobtainable: due to mental status Past Medical History Past Medical History: No Reported History, Unable to Obtain Additional Past Medical History / Comment(s): etoh History of Any Multi-Drug Resistant Organisms: None Reported Past Surgical History: Hernia Repair Past Anesthesia/Blood Transfusion Reactions: No Reported Reaction Past Psychological History: No Psychological Hx Reported Smoking Status: Unknown if ever smoked Past Alcohol Use History: Abuse, Daily, Heavy Past Drug Use History: Marijuana - Past Family History Family Family Medical History: No Reported History Medications and Allergies Home Medications Medication Instructions Recorded Confirmed Type No Known Home Medications 04/30/22 05/01/23 History Allergies Allergy/AdvReac Type Severity Reaction Status Date / Time No Known Allergies Allergy Verified 05/01/23 06:30 Physical Exam Vitals: Vital Signs Temp Pulse Pulse Resp BP BP Pulse Ox 05/01/23 11:48 97.7 F 81 16 144/77 97 05/01/23 06:18 86 18 119/72 98 04/30/23 23:57 86 18 136/98 98 04/30/23 22:54 98.7 F 97 16 98 Intake and Output 04/30/23 05/01/23 05/01/23 22:59 06:59 14:59 Intake Total 240 Balance 240 Intake: Oral 240 Other: # Voids 1 Weight 72.575 kg 72.575 kg - Constitutional General appearance: Present: average body habitus, cooperative, no acute distress - EENT Eyes: Present: anicteric sclerae, EOMI, PERRLA, normal appearance ENT: Present: hearing grossly normal, normal oropharynx Ears: bilateral: normal - Neck Neck: Present: normal ROM. Absent: lymphadenopathy, rigidity, thyromegaly Carotids: negative: bruit present Thyroid: bilateral: normal size, negative: enlarged, nodule - Respiratory Respiratory: bilateral: CTA, negative: rales, rhonchi, wheezing - Cardiovascular Rhythm: regular Heart sounds: normal: S1, S2 Abnormal Heart Sounds: Absent: systolic murmur, diastolic murmur - Gastrointestinal General gastrointestinal: Present: normal bowel sounds, soft. Absent: distended, organomegaly, tenderness - Genitourinary Genitourinary Comment(s): deferred - Integumentary Integumentary: Present: normal turgor. Absent: jaundiced, rash, ulcer - Neurologic Neurologic: Present: CNII-XII intact. Absent: focal deficits - Musculoskeletal Musculoskeletal: Present: gait normal, strength equal bilaterally Results CBC & Chem 7: 04/30/23 23:11 04/30/23 23:11 Labs: Abnormal Lab Results - Last 24 Hours (Table) 04/30/23 04/30/23 Range/Units 23:11 23:11 Hgb 18.0 H (13.0-17.5) gm/dL Hct 54.7 H (39.0-53.0) % MCV 103.2 H (80.0-100.0) fL BUN 7 L (9-20) mg/dL Creatinine 0.59 L (0.66-1.25) mg/dL Glucose 117 H (74-99) mg/dL Serum Alcohol 396 H* mg/dL Thrombosis Risk Factor Assmnt - Choose All That Apply Any of the Below Risk Factors Present?: Yes Each Factor Represents 1 point: Age 41-60 years Other Risk Factors: No Thrombosis Risk Factor Assessment Total Risk Factor Score: 1 Thrombosis Risk Factor Assessment Level: Low Risk Assessment and Plan Assessment: Alcohol intoxication/pending withdrawal - Patient is admitted for IV fluid hydration; has been placed on CIWA protocol with Ativan - Thiamine 100 mg daily Hemoconcentration; hemoglobin elevated at 18.0; likely related to dehydration; continue with IV fluids Chronic alcohol abuse DVT prophylaxis; SCDs CODE STATUS; full code
--- NOTE | 2023-05-03 10:44 | P.DS ---
Providers Date of admission: 05/01/23 01:25 Expected date of discharge: 05/01/23 Attending physician: Shaina Herr Primary care physician: Stated None Hospital Course: 57-year-old male who has past medical history alcoholism. Patient is known to our ER for alcoholism. Patient was brought in by EMS after disturbing the neighborhood nearby. Patient's poor historian. Patient yelling obscenities to our staff. He is uncooperative. In the ED patient was placed in 4. restraints and was given Haldol for chemical sedation; serum alcohol level was 396; WBC 7.4, hemoglobin of 18.0 and platelet count 291, sodium 145, potassium 5.1, BUN/creatinine 7/0.59 and blood glucose of 117 - Patient is being admitted to the hospital for alcohol intoxication Patient left AMA Patient Condition at Discharge: Fair Plan - Discharge Summary Discharge Rx Participant: No New Discharge Prescriptions: No Action No Known Home Medications Discharge Medication List No Known Home Medications 04/30/22 [History] Follow up Appointment(s)/Referral(s): None,Stated [Primary Care Provider] - 1-2 days Discharge Disposition: LEFT AGAINST MEDICAL ADVICE
== END 2023-05-01 16:19 | disposition left against medical advice (07) ==
LOC: EC 22:40 → 6NMEDSUR 05-01 01:25
PROVIDERS: ADMIT Hospitalist; ATTEND Hospitalist
DX: F10.229 Alcohol dependence with intoxication, unspecified (principal); F91.9 Conduct disorder, unspecified; F17.200 Nicotine dependence, unspecified, uncomplicated; Y90.8 Blood alcohol level of 240 mg/100 ml or more; D58.2 Other hemoglobinopathies; Z53.29 Procedure and treatment not carried out because of patient's decision for other reasons; Z78.1 Physical restraint status; Z98.890 Other specified postprocedural states
CPT/HCPCS: 96372 ×2; 99284; 36415; 80048; 83735; 85025; G0378; G0480; J1630; J3411; 80320

== ENCOUNTER 2023-05-22 20:40 | Emergency (ER) | payer OTHER ==
[2023-05-22 20:49] VITALS: BP 135/81; PULSE 91; RESP 18; TEMP 98.1
--- NOTE | 2023-05-23 04:03 | ED ---
Alcohol HPI - General Chief Complaint: Alcohol Stated Complaint: ETOH Time Seen by Provider: 05/22/23 20:45 Source: patient, EMS Mode of arrival: EMS Limitations: no limitations - History of Present Illness Initial Comments: 's patient is 57-year-old man with history of frequent emergency department visits for intoxication is brought by EMS to have evaluation. The patient reportedly found appearing very intoxicated in public. The patient denies having injury. Denies pain or dyspnea. 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 ROS Other: All systems not noted in ROS Statement are negative. Respiratory: Denies: cough, dyspnea Cardiovascular: Denies: chest pain Gastrointestinal: Denies: abdominal pain, vomiting Musculoskeletal: Denies: back pain Neurological: Denies: headache Past Medical History Past Medical History: No Reported History, Unable to Obtain Additional Past Medical History / Comment(s): etoh History of Any Multi-Drug Resistant Organisms: None Reported Past Surgical History: Hernia Repair Past Anesthesia/Blood Transfusion Reactions: No Reported Reaction Past Psychological History: No Psychological Hx Reported Smoking Status: Unknown if ever smoked Past Alcohol Use History: Abuse, Daily, Heavy Past Drug Use History: Marijuana - Past Family History Family Family Medical History: No Reported History General Exam Limitations: no limitations General appearance: alert, in no apparent distress, appears intoxicated Head exam: Present: atraumatic, normocephalic Eye exam: Present: normal appearance, nystagmus. Absent: scleral icterus, conjunctival injection Neck exam: Present: normal inspection. Absent: tenderness Respiratory exam: Present: normal lung sounds bilaterally. Absent: respiratory distress, wheezes, rales, rhonchi, stridor Cardiovascular Exam: Present: regular rate, normal rhythm, normal heart sounds. Absent: systolic murmur, diastolic murmur, rubs, gallop GI/Abdominal exam: Present: soft. Absent: distended, tenderness, guarding, rebound, rigid Extremities exam: Present: normal inspection, normal capillary refill Back exam: Present: normal inspection. Absent: vertebral tenderness Neurological exam: Present: alert, CN II-XII intact, other (Speech is dysarthric but appropriate.). Absent: motor sensory deficit Skin exam: Present: warm, dry, intact, normal color. Absent: rash Course Vital Signs 05/22/23 20:42 Temperature 98.1 F Pulse Rate 91 Respiratory 18 Rate Blood Pressure 135/81 O2 Sat by Pulse 91 L Oximetry Medical Decision Making - Medical Decision Making Patient's 57-year-old man appearing consistent with his usual appearance. Denies complaints. Patient is observed in emergency department until clinically sober. He was walking without ataxia. He was tolerating oral intake. Stable for discharge. Was pt. sent in by a medical professional or institution (JATINDER Wilson, SET KEY DRIVER, urgent care, hospital, or intermediate...) When possible be specific @ -[No] Did you speak to anyone other than the patient for history (EMS, parent, family, police, friend...)? What history was obtained from this source @ -[No] Did you review nursing and triage notes (agree or disagree)? Why? @ -[I reviewed and agree with nursing and triage notes] Were old charts reviewed (outside hosp., previous admission, EMS record, old EKG, old radiological studies, urgent care reports/EKG's, intermediate records)? Report findings @ -[No old charts were reviewed] Differential Diagnosis (chest pain, altered mental status, abdominal pain women, abdominal pain men, vaginal bleeding, weakness, fever, dyspnea, syncope, headache, dizziness, GI bleed, back pain, seizure, CVA, palpatations, mental health, musculoskeletal)? @ -[Differential Altered Mental Status: Hypoglycemia, DKA, hypercapnia, ETOH, overdose, CO poisoning, trauma, myxedema coma, HTN encephalopathy, infection, encephalitis, psychosis, intercranial hemorrhage, hepatic encephalopathy, meningitis, CVA, this is not meant to be an all-inclusive list EKG interpreted by me (3pts min.). @ -[ X-rays interpreted by me (1pt min.). @ -[None done] CT interpreted by me (1pt min.). @ -[None done] U/S interpreted by me (1pt. min.). @ -[None done] What testing was considered but not performed or refused? (CT, X-rays, U/S, labs)? Why? @ -[None] What meds were considered but not given or refused? Why? @ -[None] Did you discuss the management of the patient with other professionals (harley haji i.e. , PA, SET KEY DRIVER, lab, RT, psych nurse, social science analyst, completions engineer, teacher, account officer, rn case management)? Give summary @ -[No] Was smoking cessation discussed for >3mins.? @ -[No] Was critical care preformed (if so, how long)? @ -[No] Were there social determinants of health that impacted care today? How? (Homelessness, low income, unemployed, alcoholism, drug addiction, transportation, low edu. Level, literacy, decrease access to med. care, long term, rehab)? @ -[Alcoholism Was there de-escalation of care discussed even if they declined (Discuss DNR or withdrawal of care, Hospice)? DNR status @ -[No] What co-morbidities impacted this encounter? (DM, HTN, Smoking, COPD, CAD, Cancer, CVA, ARF, Chemo, Hep., AIDS, mental health diagnosis, sleep apnea, morbid obesity)? @ -[Alcoholism Was patient admitted / discharged? Hospital course, mention meds given and route, prescriptions, significant lab abnormalities, going to OR and other pertinent info. @ -[Discharged. See above Undiagnosed new problem with uncertain prognosis? @ -[No] Drug Therapy requiring intensive monitoring for toxicity (Heparin, Nitro, Insulin, Cardizem)? @ -[No] Were any procedures done? @ -[No] Diagnosis/symptom? @ -[Acute alcohol intoxication Acute, or Chronic, or Acute on Chronic? @ -[Acute on chronic alcohol abuse Uncomplicated (without systemic symptoms) or Complicated (systemic symptoms)? @ -[ Side effects of treatment? @ -[No] Exacerbation, Progression, or Severe Exacerbation? @ -[No] Poses a threat to life or bodily function? How? (Chest pain, [place], [place], pneumonia, PE, COPD, DKA, ARF, appy, cholecystitis, CVA, Diverticulitis, Homicidal, Suicidal, threat to staff... and all critical care pts) @ -[No] Disposition Clinical Impression: Alcoholic intoxication Disposition: HOME SELF-CARE Condition: Fair Instructions (If sedation given, give patient instructions): Alcohol Intoxication (ED) Is patient prescribed a controlled substance at d/c from ED?: No Referrals: None,Stated [Primary Care Provider] - 1-2 days
== END 2023-05-23 06:12 | disposition home or self-care (01) ==
LOC: EC 20:40
DX: F10.129 Alcohol abuse with intoxication, unspecified (principal); F12.90 Cannabis use, unspecified, uncomplicated
CPT/HCPCS: 99284

== ENCOUNTER 2023-06-05 22:10 | Emergency (ER) | payer OTHER ==
[2023-06-05 22:33] VITALS: PULSE 74; RESP 18
--- NOTE | 2023-06-05 23:10 | ED ---
Alcohol HPI - General Chief Complaint: Alcohol Stated Complaint: ETOH Time Seen by Provider: 06/05/23 22:12 Source: EMS, RN notes reviewed, old records reviewed Mode of arrival: EMS Limitations: altered mental status - History of Present Illness Initial Comments: This is a 57-year-old male to the emergency department for evaluation patient comes in with significant alcohol intoxication today. Patient is intoxicated here in the ER but denies any complaints refuses to participate history of present illness. 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 ROS Other: All systems not noted in ROS Statement are negative. Past Medical History Past Medical History: No Reported History, Unable to Obtain Additional Past Medical History / Comment(s): etoh History of Any Multi-Drug Resistant Organisms: None Reported Past Surgical History: Hernia Repair Past Anesthesia/Blood Transfusion Reactions: No Reported Reaction Past Psychological History: No Psychological Hx Reported Smoking Status: Unknown if ever smoked Past Alcohol Use History: Abuse, Daily, Heavy Past Drug Use History: Marijuana - Past Family History Family Family Medical History: No Reported History General Exam General appearance: appears intoxicated Head exam: Present: atraumatic, normocephalic, normal inspection Eye exam: Present: normal appearance, PERRL, EOMI. Absent: scleral icterus, conjunctival injection, periorbital swelling ENT exam: Present: normal exam, mucous membranes moist Neck exam: Present: normal inspection. Absent: tenderness, meningismus, lymphadenopathy Respiratory exam: Present: normal lung sounds bilaterally. Absent: respiratory distress, wheezes, rales, rhonchi, stridor Cardiovascular Exam: Present: regular rate, normal rhythm, normal heart sounds. Absent: systolic murmur, diastolic murmur, rubs, gallop, clicks GI/Abdominal exam: Present: soft, normal bowel sounds. Absent: distended, tenderness, guarding, rebound, rigid Extremities exam: Present: normal inspection, full ROM, normal capillary refill. Absent: tenderness, pedal edema, joint swelling, calf tenderness Back exam: Present: normal inspection Neurological exam: Present: alert, oriented X3, CN II-XII intact Psychiatric exam: Present: normal affect, normal mood Skin exam: Present: warm, dry, intact, normal color. Absent: rash Course Vital Signs 06/05/23 06/06/23 22:14 06:20 Temperature 97.8 F 98.0 F Pulse Rate 74 74 Respiratory 18 18 Rate Blood Pressure 148/101 145/72 O2 Sat by Pulse 97 97 Oximetry - Reevaluation(s) Reevaluation #1: 06/06/23 01:34 Medical records reviewed Reevaluation #2: Patient is awake alert able to amply without difficulty, okay for discharge Reevaluation #3: Patient informed results and questions answered Reevaluation #4: Was pt. sent in by a medical professional or institution (, PA, LOOPING INSPECTOR, urgent care, hospital, or prison...) When possible be specific @ -no Did you speak to anyone other than the patient for history (EMS, parent, family, police, friend...)? What history was obtained from this source @ -no Did you review nursing and triage notes (agree or disagree)? Why? @ -agree Are old charts reviewed (outside hosp., previous admission, EMS record, old EKG, old radiological studies, urgent care reports/EKG's, prison records)? Report findings @ -yes Differential Diagnosis (chest pain, altered mental status, abdominal pain women, abdominal pain men, vaginal bleeding, weakness, fever, dyspnea, syncope, headache, dizziness, GI bleed, back pain, seizure, CVA, palpatations, mental health, musculoskeletal)? @ -prior EKG interpreted by me (3pts min.). @ -no X-rays interpreted by me (1pt min.). @ -no CT interpreted by me (1pt min.). @ -no U/S interpreted by me (1pt. min.). @ -no What testing was considered but not performed or refused? (CT, X-rays, U/S, labs)? Why? @ -none What meds were considered but not given or refused? Why? @ -none Did you discuss the management of the patient with other professionals (professionals i.e. , PA, LOOPING INSPECTOR, lab, RT, psych nurse, nursing home social worker, engineer fishing vessel, teacher, correction officer head, welfare case worker)? Give summary @ -no Was smoking cessation discussed for >3mins.? @ -no Was critical care preformed (if so, how long)? @ -no Were there social determinants of health that impacted care today? How? (Homelessness, low income, unemployed, alcoholism, drug addiction, transportation, low edu. Level, literacy, decrease access to med. care, senior care, rehab)? @ -none Was there de-escalation of care discussed even if they declined (Discuss DNR or withdrawal of care, Hospice)? DNR status @ -no What co-morbidities impacted this encounter? (DM, HTN, Smoking, COPD, CAD, Cancer, CVA, ARF, Chemo, Hep., AIDS, mental health diagnosis, sleep apnea, morbid obesity)? @ -none Was patient admitted / discharged? Hospital course, mention meds given and route, prescriptions, significant lab abnormalities, going to OR and other pertinent info. @ - 57 male who presents to the ER for evaluation of alcohol intoxication. Patient in no acute distress here in the ER has no current complaints and can be discharged Discharge Undiagnosed new problem with uncertain prognosis? @ -no Drug Therapy requiring intensive monitoring for toxicity (Heparin, Nitro, Insulin, Cardizem)? @ -no Were any procedures done? @ -no Diagnosis/symptom? @ -Alcohol intoxication with withdrawal Acute, or Chronic, or Acute on Chronic? @ -Acute Uncomplicated (without systemic symptoms) or Complicated (systemic symptoms)? @ -Complicated Side effects of treatment? @ -no Exacerbation, Progression, or Severe Exacerbation? @ -exacerbation Poses a threat to life or bodily function? How? (Chest pain, [place], [place], pneumonia, PE, COPD, DKA, ARF, appy, cholecystitis, CVA, Diverticulitis, Homicidal, Suicidal, threat to staff... and all critical care pts) @ -yes with alcohol withdrawal Medical Decision Making - Medical Decision Making 57 male who presents to the ER for evaluation of alcohol intoxication. Patient in no acute distress here in the ER has no current complaints and can be discharged - Lab Data Lab Results 06/05/23 Range/Units 23:00 Urine Opiates Screen Not Detected (NotDetected) Ur Oxycodone Screen Not Detected (NotDetected) Urine Methadone Screen Not Detected (NotDetected) Ur Propoxyphene Screen Not Detected (NotDetected) Ur Barbiturates Screen Not Detected (NotDetected) U Tricyclic Antidepress Not Detected (NotDetected) Ur Phencyclidine Scrn Not Detected (NotDetected) Ur Amphetamines Screen Not Detected (NotDetected) U Methamphetamines Scrn Not Detected (NotDetected) U Benzodiazepines Scrn Detected H (NotDetected) Urine Cocaine Screen Not Detected (NotDetected) U Marijuana (THC) Screen Detected H (NotDetected) Disposition Clinical Impression: Alcohol withdrawal, Alcoholic intoxication Disposition: HOME SELF-CARE Condition: Good Instructions (If sedation given, give patient instructions): Alcohol Intoxication (ED), Alcohol Withdrawal (ED) Is patient prescribed a controlled substance at d/c from ED?: No Referrals: None,Stated [Primary Care Provider] - 1-2 days Time of Disposition: 06:00
[2023-06-05 23:29] LABS: Amphetamine Screen,Urine Not Detected (NotDetected); Barbiturate Screen,Urine Not Detected (NotDetected); Benzodiazepines Screen,Urine Detected (NotDetected); Cocaine Screen,Urine Not Detected (NotDetected); Methadone Screen, Urine Not Detected (NotDetected); Opiate Screen,Urine Not Detected (NotDetected); Oxycodone Screen, Urine Not Detected (NotDetected); Phencyclidine Screen,Urine Not Detected (NotDetected); Tricyclic Antidepressant,Urine Not Detected (NotDetected); Urn Cannabinoid Scrn Detected (NotDetected)
[2023-06-06 06:29] VITALS: BP 145/72; TEMP 98
== END 2023-06-06 06:23 | disposition home or self-care (01) ==
LOC: EC 22:10
DX: F10.239 Alcohol dependence with withdrawal, unspecified (principal); F12.90 Cannabis use, unspecified, uncomplicated
CPT/HCPCS: 80306; 99285

== ENCOUNTER 2023-11-05 23:49 | Emergency (ER) | payer OTHER ==
[2023-11-06] MEDS: HALOPERIDOL LACTATE 5 MG/ML 1 ML VIAL IM STA (00:42)
[2023-11-06 00:46] VITALS: TEMP 97.8
[2023-11-06] MEDS: SODIUM CHLORIDE 0.9% 1,000 ML IV STA (00:54)
[2023-11-06 01:11] LABS: Basophils # (A) 0.1 k/uL (0-0.2); Basophils % (A) 1 %; Eosinophils # (A) 0.3 k/uL (0-0.7); Eosinophils % (A) 2 %; HGB 15.8 gm/dL (13.0-17.5); Lymphocytes # (A) 2.5 k/uL (1.0-4.8); Lymphocytes % (A) 18 %; MCH 33.1 pg (25.0-35.0); MCHC 34.4 g/dL (31.0-37.0); MCV 96.3 fL (80.0-100.0); Mean Platelet Volume 7.5; Monocytes # (A) 0.8 k/uL (0-1.0); Monocytes % (A) 6 %; Neutrophils % (A) 71 %; Platelet Count 339 k/uL (150-450); RBC 4.78 m/uL (4.30-5.90); RDW 13.7 % (11.5-15.5); WBC 14.2 k/uL (3.8-10.6)
[2023-11-06 01:17] LABS: ALT 58 U/L (4-49); AST 84 U/L (17-59); African American GFR (CKD) >90 (>60 ml/min/1.73 sqM); Albumin 4.4 g/dL (3.5-5.0); Alkaline Phosphatase 153 U/L (38-126); Anion Gap 16 mmol/L; Blood Urea Nitrogen 4 mg/dL (9-20); Calcium 9.2 mg/dL (8.4-10.2); Carbon Dioxide 22 mmol/L (22-30); Chloride 98 mmol/L (98-107); Glucose 105 mg/dL (74-99); Lipase 471 U/L (23-300); Non-African American GFR(CKD) >90 (>60 ml/min/1.73 sqM); Potassium 4.3 mmol/L (3.5-5.1); Sodium 136 mmol/L (137-145); Total Bilirubin 0.6 mg/dL (0.2-1.3); Total Protein 7.5 g/dL (6.3-8.2)
[2023-11-06 01:19] LABS: Alcohol 261 mg/dL
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
[2023-11-06 01:52] LABS: Amphetamine Screen,Urine Not Detected (NotDetected); Barbiturate Screen,Urine Not Detected (NotDetected); Benzodiazepines Screen,Urine Not Detected (NotDetected); Cocaine Screen,Urine Not Detected (NotDetected); Methadone Screen, Urine Not Detected (NotDetected); Opiate Screen,Urine Not Detected (NotDetected); Oxycodone Screen, Urine Not Detected (NotDetected); Phencyclidine Screen,Urine Not Detected (NotDetected); Tricyclic Antidepressant,Urine Not Detected (NotDetected); Urn Cannabinoid Scrn Detected (NotDetected)
[2023-11-06 02:59] VITALS: PULSE 60
[2023-11-06 04:30] VITALS: BP 115/90
[2023-11-06 06:38] VITALS: RESP 18
== END 2023-11-06 08:20 | disposition home or self-care (01) ==
LOC: EC 23:49
DX: F10.129 Alcohol abuse with intoxication, unspecified (principal); F12.90 Cannabis use, unspecified, uncomplicated; Y90.8 Blood alcohol level of 240 mg/100 ml or more
CPT/HCPCS: 36415; 80053; 83690; 85025; 80306; 99285; 96360; 96372; G0480; J1630; 80320

== ENCOUNTER 2023-11-28 05:45 | Emergency (ER) | payer OTHER ==
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
[2023-11-28] MEDS: IBUPROFEN 800 MG TAB PO STA (06:29)
[2023-11-28] MEDS: ACETAMINOPHEN TAB 500 MG TAB PO STA (06:30)
[2023-11-28 06:33] VITALS: RESP 18
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
[2023-11-28 08:27] VITALS: TEMP 98
[2023-11-28 12:36] VITALS: BP 132/71; PULSE 84
== END 2023-11-28 12:45 | disposition home or self-care (01) ==
LOC: EC 05:45
DX: S01.511A Laceration without foreign body of lip, initial encounter (principal); F17.210 Nicotine dependence, cigarettes, uncomplicated; F10.129 Alcohol abuse with intoxication, unspecified; Y04.8XXA Assault by other bodily force, initial encounter
CPT/HCPCS: 70450; 70486; 99284; 99406

== ENCOUNTER 2023-12-08 00:09 | Emergency (ER) | payer OTHER ==
[2023-12-08 00:35] VITALS: BP 128/82; PULSE 84; RESP 18; TEMP 97.9
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
== END 2023-12-08 02:20 | disposition home or self-care (01) ==
LOC: EC 00:09
DX: F10.129 Alcohol abuse with intoxication, unspecified (principal); F12.90 Cannabis use, unspecified, uncomplicated
CPT/HCPCS: 99283

== ENCOUNTER 2023-12-11 22:16 | Emergency (ER) | payer OTHER ==
[2023-12-11 22:40] VITALS: BP 140/89; PULSE 80; RESP 18; TEMP 96.9
--- NOTE | 2023-12-11 23:55 | ED ---
General Adult HPI - General Chief complaint: Alcohol Stated complaint: ETOH Time Seen by Provider: 12/11/23 22:26 Source: patient, police, RN notes reviewed, old records reviewed Mode of arrival: wheelchair Limitations: no limitations - History of Present Illness Initial comments: 58-year-old male presenting with alcohol intoxication, patient is quite a gitated, belligerent, using profanity. No physical complaints. Has a problem with daily alcohol abuse. no Suicidal or homicidal ideation. - Related Data Home Medications Medication Instructions Recorded Confirmed No Known Home Medications 04/30/22 05/22/23 Allergies Allergy/AdvReac Type Severity Reaction Status Date / Time No Known Allergies Allergy Verified 11/28/23 05:53 Review of Systems ROS Statement: Those systems with pertinent positive or pertinent negative responses have been documented in the HPI. ROS Other: All systems not noted in ROS Statement are negative. Past Medical History Past Medical History: No Reported History, Unable to Obtain Additional Past Medical History / Comment(s): etoh History of Any Multi-Drug Resistant Organisms: None Reported Past Surgical History: Hernia Repair Past Anesthesia/Blood Transfusion Reactions: No Reported Reaction Past Psychological History: No Psychological Hx Reported Smoking Status: Unknown if ever smoked Past Alcohol Use History: Abuse, Daily, Heavy Past Drug Use History: Marijuana - Past Family History Family Family Medical History: No Reported History General Exam Limitations: no limitations General appearance: alert, appears intoxicated Head exam: Present: atraumatic, normocephalic Eye exam: Present: normal appearance, PERRL ENT exam: Present: normal exam Neck exam: Present: normal inspection. Absent: tenderness, meningismus Respiratory exam: Present: normal lung sounds bilaterally. Absent: respiratory distress, wheezes Cardiovascular Exam: Present: regular rate, normal rhythm GI/Abdominal exam: Present: soft. Absent: distended, tenderness Neurological exam: Present: alert, oriented X3, CN II-XII intact. Absent: motor sensory deficit Psychiatric exam: Present: normal affect, normal mood Skin exam: Present: warm, dry, intact Course Vital Signs 12/11/23 22:20 Temperature 96.9 F L Pulse Rate 80 Respiratory 18 Rate Blood Pressure 140/89 O2 Sat by Pulse 98 Oximetry Medical Decision Making - Medical Decision Making Was pt. sent in by a medical professional or institution (, PA, GIS DATABASE ADMINISTRATOR, urgent care, hospital, or fdc...) When possible be specific @ -No Did you speak to anyone other than the patient for history (EMS, parent, family, police, friend...)? What history was obtained from this source @ -No Did you review nursing and triage notes (agree or disagree)? Why? @ -I reviewed and agree with nursing and triage notes Were old charts reviewed (outside hosp., previous admission, EMS record, old EKG, old radiological studies, urgent care reports/EKG's, fdc records)? Report findings @ -No old charts were reviewed Differential Diagnosis (chest pain, altered mental status, abdominal pain women, abdominal pain men, vaginal bleeding, weakness, fever, dyspnea, syncope, headache, dizziness, GI bleed, back pain, seizure, CVA, palpatations, mental health, musculoskeletal)? @ -[ETOH intoxication EKG interpreted by me (3pts min.). @ -As above X-rays interpreted by me (1pt min.). @ -None done CT interpreted by me (1pt min.). @ -None done U/S interpreted by me (1pt. min.). @ -None done What testing was considered but not performed or refused? (CT, X-rays, U/S, labs)? Why? @ -None What meds were considered but not given or refused? Why? @ -None Did you discuss the management of the patient with other professionals (professionals i.e. , PA, GIS DATABASE ADMINISTRATOR, lab, RT, psych nurse, social services manager, naval designer, teacher, peace officer, skilled nursing case manager)? Give summary @ -No Was smoking cessation discussed for >3mins.? @ -No Was critical care preformed (if so, how long)? @ -No Were there social determinants of health that impacted care today? How? (Homelessness, low income, unemployed, alcoholism, drug addiction, tr ansportation, low edu. Level, literacy, decrease access to med. care, [facility], rehab)? @ -No Was there de-escalation of care discussed even if they declined (Discuss DNR or withdrawal of care, Hospice)? DNR status @ -No What co-morbidities impacted this encounter? (DM, HTN, Smoking, COPD, CAD, Cancer, CVA, ARF, Chemo, Hep., AIDS, mental health diagnosis, sleep apnea, morbid obesity)? @ -None Was patient admitted / discharged? Hospital course, mention meds given and route, prescriptions, significant lab abnormalities, going to OR and other pertinent info. @58-year-old male with alcohol intoxication, no complaints, no suicidal or homicidal ideation. Patient observed in the emergency department until clinically sober and discharged in stable condition. Undiagnosed new problem with uncertain prognosis? @ -No Drug Therapy requiring intensive monitoring for toxicity (Heparin, Nitro, Insulin, Cardizem)? @ -No Were any procedures done? @ -No Diagnosis/symptom? @ -Alcohol intoxication Acute, or Chronic, or Acute on Chronic? @Acute on chronic Uncomplicated (without systemic symptoms) or Complicated (systemic symptoms)? @ -Default Side effects of treatment? @ -No Exacerbation, Progression, or Severe Exacerbation? @ -No Poses a threat to life or bodily function? How? (Chest pain, [place], [place], pneumonia, PE, COPD, DKA, ARF, appy, cholecystitis, CVA, Diverticulitis, Homicidal, Suicidal, threat to staff... and all critical care pts) @ -No Disposition Clinical Impression: Alcoholic intoxication Disposition: HOME SELF-CARE Condition: Fair Instructions (If sedation given, give patient instructions): Alcohol Intoxication (ED) Is patient prescribed a controlled substance at d/c from ED?: No Referrals: None,Stated [Primary Care Provider] - 1-2 days
[2023-12-12] MEDS: LORazepam 2 MG/ML INJ IM STA (00:17)
== END 2023-12-12 06:53 | disposition home or self-care (01) ==
LOC: EC 22:16
DX: F10.129 Alcohol abuse with intoxication, unspecified (principal); F12.90 Cannabis use, unspecified, uncomplicated
CPT/HCPCS: 99284; 96372; J2060

== ENCOUNTER 2023-12-22 22:34 | Emergency (ER) | payer OTHER ==
[2023-12-22 23:04] VITALS: BP 127/85; TEMP 97.8
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
[2023-12-22] MEDS: ACETAMINOPHEN TAB 500 MG TAB PO STA (23:31)
--- NOTE | 2023-12-23 00:36 | CT ---
823 images EXAM: CT Head Without Intravenous Contrast CLINICAL HISTORY: ITS.REASON CT Reason: fall head injury + LOC TECHNIQUE: Axial computed tomography images of the head/brain without intravenous contrast. CTDI is 45.2 mGy and DLP is 1152 mGy-cm. This CT exam was performed using one or more of the following dose reduction techniques: automated exposure control, adjustment of the mA and/or kV according to patient size, and/or use of iterative reconstruction technique. Coronal and sagittal reformatted images were created and reviewed. COMPARISON: 04/08/2023 FINDINGS: Artifacts: Motion artifact slightly decreases the sensitivity of this exam. Brain: Unremarkable. No hemorrhage. No significant white matter disease. No edema. Ventricles: Unremarkable. No ventriculomegaly. Bones/joints: Nasal bone deviation to the right, likely result of old fractures, unchanged. Chronic anterior translation of left TMJ, also present on the prior study, likely result of old fracture of left mandibular condyle. Soft tissues: Small soft tissue hematoma over left orbit. Sinuses: Unremarkable as visualized. No acute sinusitis. Mastoid air cells: Unremarkable as visualized. No mastoid effusion. IMPRESSION: No intracranial hemorrhage or acute fracture. EXAM: CT Cervical Spine Without Intravenous Contrast CLINICAL HISTORY: ITS.REASON CT Reason: fall head injury + LOC TECHNIQUE: Axial computed tomography images of the cervical spine without intravenous contrast. CTDI is 11.2 mGy and DLP is 333.2 mGy-cm. This CT exam was performed using one or more of the following dose reduction techniques: automated exposure control, adjustment of the mA and/or kV according to patient size, and/or use of iterative reconstruction technique. Coronal and sagittal reformatted images were created and reviewed. COMPARISON: 04/08/2023 FINDINGS: Vertebrae: Unremarkable. No fracture. Discs/spinal canal/neural foramina: Mild to moderate degenerative disease worse in the lower cervical spine. No spinal canal stenosis. Soft tissues: Unremarkable. IMPRESSION: No fracture or acute subluxation.
[2023-12-23 01:26] VITALS: PULSE 70; RESP 16
== END 2023-12-23 01:18 | disposition home or self-care (01) ==
LOC: EC 22:34
DX: S06.0X1A Concussion with loss of consciousness of 30 minutes or less, initial encounter (principal); R40.2210 Coma scale, best verbal response, none, unspecified time; F12.90 Cannabis use, unspecified, uncomplicated; W18.09XA Striking against other object with subsequent fall, initial encounter
CPT/HCPCS: 70450; 72125; 99284

== ENCOUNTER 2024-12-01 14:42 | Emergency (ER) | payer OTHER ==
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
[2024-12-01 15:53] VITALS: BP 131/81; PULSE 57; RESP 18; TEMP 99
== END 2024-12-01 15:54 | disposition home or self-care (01) ==
LOC: EC 14:42
DX: F10.129 Alcohol abuse with intoxication, unspecified (principal)
CPT/HCPCS: 99284

== ENCOUNTER 2024-12-13 13:00 | Emergency (ER) | payer OTHER ==
[2024-12-13 13:29] LABS: Basophils # (A) 0.07 10*3/uL (0.00-0.10); Basophils % (A) 1.1 %; Eosinophils # (A) 0.22 10*3/uL (0.04-0.35); Eosinophils % (A) 3.5 %; HCT 42.5 % (39.6-50.0); HGB 14.7 g/dL (13.0-17.0); Lymphocytes # (A) 1.74 10*3/uL (0.90-5.00); Lymphocytes % (A) 27.9 %; MCHC 34.6 g/dL (32.0-37.0); MCV 92.4 fL (80.0-97.0); Mean Platelet Volume 9.5 fL (9.5-12.2); Monocytes # (A) 0.64 10*3/uL (0.20-1.00); Monocytes % (A) 10.3 %; Neutrophils # (A) 3.54 10*3/uL (1.80-7.70); Neutrophils % (A) 56.9 %; Platelet Count 355 10*3/uL (140-440); RDW 14.2 % (11.5-14.5); WBC 6.23 10*3/uL (4.50-10.00)
--- NOTE | 2024-12-13 13:29 | ED ---
General Adult HPI - General Chief complaint: Recheck/Abnormal Lab/Rx Stated complaint: AMS Time Seen by Provider: 12/13/24 13:02 Source: patient, police, RN notes reviewed Mode of arrival: ambulatory Limitations: no limitations - History of Present Illness Initial comments: 59-year-old male presents emergency department from senior living for laboratory studies. They felt that he is having some bouts of confusion. Patient is a known alcoholic and has no complaints of himself he has not drank in over a week as he has been currently jailed. Patient denies any headache, dizziness, chest pain, shortness of breath, nausea vomiting diarrhea constipation. Patient was sent here from senior living requesting ammonia level. - Related Data Previous Rx's Medication Instructions Recorded Acetaminophen Tab [Tylenol] 650 mg PO Q6H PRN #24 tab 10/08/24 Allergies Allergy/AdvReac Type Severity Reaction Status Date / Time No Known Allergies Allergy Verified 12/13/24 13:08 Review of Systems ROS Statement: Those systems with pertinent positive or pertinent negative responses have been documented in the HPI. ROS Other: All systems not noted in ROS Statement are negative. Past Medical History Past Medical History: No Reported History, Unable to Obtain Additional Past Medical History / Comment(s): etoh History of Any Multi-Drug Resistant Organisms: None Reported Past Surgical History: Hernia Repair Past Anesthesia/Blood Transfusion Reactions: No Reported Reaction Past Psychological History: No Psychological Hx Reported Smoking Status: Unknown if ever smoked Past Alcohol Use History: Abuse, Daily, Heavy Past Drug Use History: Marijuana - Past Family History Family Family Medical History: No Reported History General Exam Limitations: no limitations General appearance: alert, in no apparent distress Head exam: Present: atraumatic, normocephalic, normal inspection Eye exam: Present: normal appearance, PERRL, EOMI. Absent: scleral icterus, conjunctival injection, periorbital swelling ENT exam: Present: normal exam, normal oropharynx, mucous membranes moist Neck exam: Present: normal inspection, full ROM. Absent: tenderness, meningismus, lymphadenopathy Respiratory exam: Present: normal lung sounds bilaterally. Absent: respiratory distress, wheezes, rales, rhonchi, stridor Cardiovascular Exam: Present: regular rate, normal rhythm, normal heart sounds. Absent: systolic murmur, diastolic murmur, rubs, gallop, clicks GI/Abdominal exam: Present: soft, normal bowel sounds. Absent: distended, tenderness, guarding, rebound, rigid Neurological exam: Present: alert, oriented X3, CN II-XII intact Skin exam: Present: warm, dry, intact, normal color. Absent: rash Course Vital Signs 12/13/24 12/13/24 13:04 14:23 Temperature 97.7 F 97.9 F Pulse Rate 68 64 Respiratory 22 18 Rate Blood Pressure 129/70 125/76 O2 Sat by Pulse 100 100 Oximetry Medical Decision Making - Medical Decision Making Was pt. sent in by a medical professional or institution (, PA, TOBACCO PACKING MACHINE OPERATOR, urgent care, hospital, or alf...) When possible be specific @ -From senior living Did you speak to anyone other than the patient for history (EMS, parent, family, police, friend...)? What history was obtained from this source @ -No Did you review nursing and triage notes (agree or disagree)? Why? @ -I reviewed and agree with nursing and triage notes Were old charts reviewed (outside hosp., previous admission, EMS record, old EKG , old radiological studies, urgent care reports/EKG's, alf records)? Report findings @ -No old charts were reviewed Differential Diagnosis (chest pain, altered mental status, abdominal pain women, abdominal pain men, vaginal bleeding, weakness, fever, dyspnea, syncope, headache, dizziness, GI bleed, back pain, seizure, CVA, palpatations, mental health, musculoskeletal)? @ -[Differential Altered Mental Status: Hypoglycemia, DKA, hypercapnia, ETOH, overdose, CO poisoning, trauma, myxedema coma, HTN encephalopathy, infection, encephalitis, psychosis, intercranial hemorrhage, hepatic encephalopathy, meningitis, CVA, this is not meant to be an all-inclusive list EKG interpreted by me (3pts min.). @ -As above X-rays interpreted by me (1pt min.). @ -None done CT interpreted by me (1pt min.). @ -None done U/S interpreted by me (1pt. min.). @ -None done What testing was considered but not performed or refused? (CT, X-rays, U/S, labs)? Why? @ -None What meds were considered but not given or refused? Why? @ -None Did you discuss the management of the patient with other professionals (professionals i.e. , PA, TOBACCO PACKING MACHINE OPERATOR, lab, RT, psych nurse, social work associate, filling mixer, teacher, postal delivery officer, case management associate)? Give summary @ -No Was smoking cessation discussed for >3mins.? @ -No Was critical care preformed (if so, how long)? @ -No Were there social determinants of health that impacted care today? How? (Homelessness, low income, unemployed, alcoholism, drug addiction, transportation, low edu. Level, literacy, decrease access to med. care, senior living, rehab)? @ -No Was there de-escalation of care discussed even if they declined (Discuss DNR or withdrawal of care, Hospice)? DNR status @ -No What co-morbidities impacted this encounter? (DM, HTN, Smoking, COPD, CAD, Cancer, CVA, ARF, Chemo, Hep., AIDS, mental health diagnosis, sleep apnea, morbid obesity)? @ -Alcohol abuse Was patient admitted / discharged? Hospital course, mention meds given and route, prescriptions, significant lab abnormalities, going to OR and other pertinent info. @ -Discharge there is no significant lab maladies patient's ammonia is 36 not seeming elevating causing any symptoms patient is awake alert and orientated. Patient be discharged back to senior living. Undiagnosed new problem with uncertain prognosis? @ -No Drug Therapy requiring intensive monitoring for toxicity (Heparin, Nitro, Insulin, Cardizem)? @ -No Were any procedures done? @ -No Diagnosis/symptom? @ -Medical assessment, alcohol abuse Acute, or Chronic, or Acute on Chronic? @ -Acute Uncomplicated (without systemic symptoms) or Complicated (systemic symptoms)? @ -Uncomplicated Side effects of treatment? @ -No Exacerbation, Progression, or Severe Exacerbation? @ -No Poses a threat to life or bodily function? How? (Chest pain, [place], [place], pneumonia, PE, COPD, DKA, ARF, appy, cholecystitis, CVA, Diverticulitis, Homicidal, Suicidal, threat to staff... and all critical care pts) @ -No - Lab Data Result diagrams: 12/13/24 13:21 12/13/24 13:21 Lab Results 12/13/24 12/13/24 12/13/24 Range/Units 13:21 13:21 13:21 WBC 6.23 (4.50-10.00) 10*3/uL RBC 4.60 (4.40-5.60) 10*6/uL Hgb 14.7 (13.0-17.0) g/dL Hct 42.5 (39.6-50.0) % MCV 92.4 (80.0-97.0) fL MCH 32.0 (27.0-32.0) pg MCHC 34.6 (32.0-37.0) g/dL Plt Count 355 (140-440) 10*3/uL MPV 9.5 (9.5-12.2) fL Immature Gran % (Auto) 0.3 % Neutrophils % 56.9 % Lymphocytes % 27.9 % Monocytes % 10.3 % Eosinophils % 3.5 % Basophils % 1.1 % Immature Gran # 0.02 (0.00-0.04) 10*3/uL Neutrophils # 3.54 (1.80-7.70) 10*3/uL Lymphocytes # 1.74 (0.90-5.00) 10*3/uL Monocytes # 0.64 (0.20-1.00) 10*3/uL Eosinophils # 0.22 (0.04-0.35) 10*3/uL Basophils # 0.07 (0.00-0.10) 10*3/uL Sodium 136 L (137-145) mmol/L Potassium 3.8 (3.5-5.1) mmol/L Chloride 104 (98-107) mmol/L Carbon Dioxide 24 (22-30) mmol/L Anion Gap 8 mmol/L BUN 10 (9-20) mg/dL Creatinine 0.47 L (0.66-1.25) mg/dL Est GFR (CKD-EPI)AfAm >90 (>60 ml/min/1.73 sqM) Est GFR (CKD-EPI)NonAf >90 (>60 ml/min/1.73 sqM) Glucose 139 H (74-99) mg/dL Calcium 9.4 (8.4-10.2) mg/dL Magnesium 2.1 (1.6-2.3) mg/dL Total Bilirubin 0.3 (0.2-1.3) mg/dL AST 60 H (17-59) U/L ALT 57 H (4-49) U/L Alkaline Phosphatase 111 (38-126) U/L Ammonia 36 H (<30) umol/L Total Protein 6.2 L (6.3-8.2) g/dL Albumin 3.4 L (3.5-5.0) g/dL Disposition Clinical Impression: Encounter for medical assessment, Alcohol abuse Disposition: HOME SELF-CARE Condition: Stable Additional Instructions: Please return to the Emergency Department if symptoms worsen or any other concerns. Is patient prescribed a controlled substance at d/c from ED?: No Referrals: None,Stated [Primary Care Provider] - 1-2 days Time of Disposition: 14:13
[2024-12-13 13:45] LABS: ALT 57 U/L (4-49); AST 60 U/L (17-59); African American GFR (CKD) >90 (>60 ml/min/1.73 sqM); Albumin 3.4 g/dL (3.5-5.0); Alkaline Phosphatase 111 U/L (38-126); Anion Gap 8 mmol/L; Blood Urea Nitrogen 10 mg/dL (9-20); Calcium 9.4 mg/dL (8.4-10.2); Carbon Dioxide 24 mmol/L (22-30); Chloride 104 mmol/L (98-107); Glucose 139 mg/dL (74-99); Magnesium 2.1 mg/dL (1.6-2.3); Non-African American GFR(CKD) >90 (>60 ml/min/1.73 sqM); Potassium 3.8 mmol/L (3.5-5.1); Sodium 136 mmol/L (137-145); Total Bilirubin 0.3 mg/dL (0.2-1.3); Total Protein 6.2 g/dL (6.3-8.2)
[2024-12-13 14:24] VITALS: BP 125/76; PULSE 64; RESP 18; TEMP 97.9
== END 2024-12-13 14:24 | disposition home or self-care (01) ==
LOC: EC 13:00
DX: F10.10 Alcohol abuse, uncomplicated (principal); Z00.8 Encounter for other general examination
CPT/HCPCS: 36415; 80053; 82140; 83735; 85025; 99284